=== PATIENT | male | born 1960 | race Caucasian/White ===

== ENCOUNTER 2024-04-11 18:21 | Emergency (ER) | payer MEDICARE, SELFPAY ==
--- NOTE | 2024-04-11 18:19 | ECG_ITS ---
APPROVED REPORT Exam: Resting ECG HR:70 bpm ECG Measurements Heart Rate 70 AXES NC 243 P 62 QRSd 96 QRS -18 QT 404 T 50 QTc 425 Conclusion SINUS RHYTHM WITH FIRST DEGREE AV BLOCK LOW QRS VOLTAGE IN PRECORDIAL LEADS [QRS DEFLECTION < 1.0 mV IN CHEST LEADS] ABNORMAL ECG UNCONFIRMED REPORT Electronically signed by : TESS CRANE, 04/13/2024 02:36:27
[2024-04-11 18:28] VITALS: BP 143/91; PULSE 77; RESP 17; TEMP 36.8; O2SAT 100; BMI 34.2
[2024-04-11 18:45] VITALS: PULSE 73; RESP 22; O2SAT 99
--- NOTE | 2024-04-11 18:45 | XR_ITS ---
PROCEDURE INFORMATION: Exam: XR Chest Exam date and time: 04/11/2024 6:50 PM Age: 63 years old Clinical indication: Shortness of breath; Additional info: Chest pain/ SOA TECHNIQUE: Imaging protocol: Radiologic exam of the chest. Views: 1 view. COMPARISON: No relevant prior studies available. FINDINGS: Lungs: Linear opacities noted in the right. This may suggest atelectasis no focal airspace consolidation. Overall lung house are hypoexpanded. This may reflect inadequate inspiration. Follow-up clinically. Pleural spaces: Unremarkable. No pleural effusion. No pneumothorax. Heart/Mediastinum: Unremarkable. No cardiomegaly. Bones/joints: Unremarkable. IMPRESSION: Right basilar atelectasis. Follow-up clinically
[2024-04-11] MEDS: ASPIRIN 81MG CHEWABLE TABLET 324 MG PO (18:54)
[2024-04-11 19:11] LABS: Basophils % 0.5 % (0.1-2.0); Eosinophils # 0.1 K/mm3 (0.0-0.4); Eosinophils % 1.5 % (0.1-12.0); Hematocrit 36.2 % (42.0-52.0); Hemoglobin 11.6 g/dL (14.1-18.0); Lymphocytes # 1.6 K/mm3 (0.7-4.5); Lymphocytes % 24.2 % (10-50); Mean Corpuscular Hemoglobin 28.6 pg (27.0-31.2); Mean Corpuscular Volume 89.2 fl (80-94); Mean Platelet Volume 9.6 fl (7.4-10.4); Monocytes # 0.5 K/mm3 (0.1-1.0); Monocytes % 7.9 % (1.7-9.3); Neutrophils # 4.3 K/mm3 (1.8-7.8); Neutrophils % 65.6 % (37.0-80.0); Platelet Count 330 K/mm3 (142-424); Red Blood Count 4.06 M/mm3 (4.60-6.20); Red Cell Distribution Width 16.4 % (11.5-17.5); White Blood Count 6.6 K/mm3 (4.8-10.8)
[2024-04-11 19:13] LABS: Chloride 103 mmol/L (98-107); Potassium 4.9 mmoL/L (3.5-5.1); Sodium 137 mmol/L (136-145)
--- NOTE | 2024-04-11 19:14 | HMH.EDCP ---
Discharge Plan Disposition Patient Disposition: Home, Self-Care Chief Complaint: Chest Pain Prescriptions Prescriptions: No Action atorvastatin 40 mg tablet 40 mg PO HS clopidogrel 75 mg tablet 75 mg PO DAILY amlodipine 5 mg tablet 5 mg PO DAILY aspirin [Aspir-81] 81 mg Tablet,Delayed Release (Dr/Ec) 81 mg PO DAILY sotalol 120 mg tablet 120 mg PO BID magnesium chloride 64 mg Tablet Extended Release 64 mg PO BID potassium citrate 10 mEq (1,080 mg) Tablet Extended Release 10 meq PO TID nitroglycerin 0.4 mg Tablet, Sublingual 0.4 mg SUBLINGUAL Q5M PRN (Reason: Chest Pain) Rx Instructions: do not exceed 3 doses per episode clove oil Oil 1 ea DENTAL DAILY Glucosamine Complex-MSM Capsule 1 cap PO DAILY tadalafil [Cialis] 20 mg Tablet 20 mg PO DAILY insulin glargine [Lantus Solostar U-100 Insulin] 100 unit/mL (3 mL) insulin pen 35 unit SQ HS vitamin Y65-maxlk acid 1,000-400 mcg Lozenge 1 myah SUBLINGUAL DAILY Ozempic 2 mg/dose (8 mg/3 mL) pen injector 2 mg SQ WEEKLY Referrals Follow up/Referrals: Provider,Referral, MD [Primary Care Provider] - See instructions Activity Restrictions/Add. Instructions Additional Instructions/Restrictions: Call your family doctor to establish care for this visit to the emergency department and schedule follow-up within 48 hours to ensure improvement. If you have any worsening of your condition or any other concerning signs or symptoms, return to the emergency department or your primary care doctor for further evaluation. If need to take more than 3 nitroglycerin, return immediately to the emergency department. Clinical Impressions Clinical Impression: Chest pain Print Language Print Language: Croatian Discharge ED Provider: Jung Stewart HPI General Chief Complaint: Chest Pain Stated Complaint: Chest Pain Time Seen by Provider: 04/11/24 18:23 Mode of Arrival: Ambulatory Source of Information: Patient Limitations: No Limitations Description of Symptoms (Recalled from ER Triage Doc. by RN): Pt. presents to the ED with complaints of chest pain that starts in his left chest and radiates into his left shoulder. He states it started 3 days ago but has gotten worse and he is having lightheadedness and some shortness of air. HE took 3 SL nitro at 1730. He rates the pain a 5/10. History of Present Illness HPI narrative: Please note that above description of symptoms, in this electronic medical record under categorization of recalled from ER triage doctor by RN are reflective of an initial nursing assessment, however, is not reflective of my full history and physical exam that was personally taken and clarified. Consequentially, this preceding description of symptoms, which may include the patient's categorized chief complaint in the EMR, do not reflect my personal clinical impression, and the ultimate description of history of present illness and patient stated complaints should be deferred to this section of the note. Unless stated otherwise or congruent with this section of the note, additional signs, symptoms, or incongruence should be interpreted as inaccurate with my clinical impression. Related Data Home Medications ?Medication ?Instructions ?Recorded ?Confirmed amlodipine 5 mg tablet 5 mg PO DAILY 04/11/24 04/11/24 aspirin 81 mg tablet,delayed 81 mg PO DAILY 04/11/24 04/11/24 release atorvastatin 40 mg tablet 40 mg PO HS 04/11/24 04/11/24 clopidogrel 75 mg tablet 75 mg PO DAILY 04/11/24 04/11/24 clove oil 1 ea dental DAILY 04/11/24 04/11/24 ecalwwgkrbo-lmi-tzbfnfodj-vitC 1 cap PO DAILY 04/11/24 04/11/24 capsule (Glucosamine Complex-MSM capsule) insulin glargine 100 unit/mL (3 35 unit SQ HS 04/11/24 04/11/24 mL) subcutaneous pen (Lantus Solostar U-100 Insulin) magnesium chloride 64 mg 64 mg PO BID 04/11/24 04/11/24 tablet,extended release nitroglycerin 0.4 mg sublingual 0.4 mg sublingual Q5M PRN Chest 04/11/24 04/11/24 tablet Pain potassium citrate 10 mEq (1,080 10 meq PO TID 04/11/24 04/11/24 mg) tablet,extended release semaglutide 2 mg/dose (8 mg/3 mL) 2 mg SQ WEEKLY 04/11/24 04/11/24 subcutaneous pen injector (Ozempic) sotalol 120 mg tablet 120 mg PO BID 04/11/24 04/11/24 tadalafil 20 mg tablet (Cialis) 20 mg PO DAILY 04/11/24 04/11/24 vitamin B12 1,000 mcg-folic acid 1 myah sublingual DAILY 04/11/24 04/11/24 400 mcg sublingual lozenge Allergies Allergy/AdvReac Type Severity Reaction Status Date / Time dial soap Allergy Rash Uncoded 04/11/24 18:36 [facility] Disclaimer: The information contained in this section may have been updated after the patient was seen, as this information can be updated by other users. Social History Smoking Status: Never smoker alcohol intake: never current occupational status: employed Travel in the last 8 weeks: None ROS Obtained: Yes All systems reviewed & no additional complaints except as documented Physical Exam General General appearance: alert Neck Neck exam: Present trachea midline Chest Chest inspection: Present normal inspection and symmetric chest wall rise Respiratory Respiratory exam: Present normal lung sounds bilaterally; Absent respiratory distress, wheezes, stridor, accessory muscle use or prolonged expiratory phase Cardiovascular Cardiovascular exam: Present regular rate, normal rhythm, normal heart sounds and other (Pulses equal and symmetric in upper and lower extremities) Extremities Exam Extremities exam: Absent edema Neurological Exam Neurological exam: Present alert, oriented X3 and CN II-XII intact Skin Skin exam: Present warm and dry; Absent cyanosis, diaphoresis or pallor HEART Score HEART Score HEART Score assessment performed?: Yes History (anamnesis): Moderately suspicious ECG: Normal Age: >65 years Risk factors: 3 or more risk factors Troponin: </= normal limit HEART Score: 5 Critical Care Critical Care Time Critical Care Time: No Medical Decision Making Medical Records Medical records reviewed: Yes I reviewed the patient's medical records. Jean Inquiry Pt receiving controlled substance: No Jean was queried for this patient: No Vital Signs Vital Signs: 04/11/24 18:28 04/11/24 18:45 Temperature 98.3 F Temperature Source Oral Pulse Rate 73 Pulse Rate [Right Brachial] 77 Respiratory Rate 17 22 Blood Pressure [Right Arm] 143/91 H Blood Pressure Mean [Right Arm] 108 Blood Pressure Source [Right Arm] Automatic Cuff Blood Pressure Position [Right Arm] Sitting 02 Sat by Pulse Oximetry 100 99 Oxygen Delivery Method Room Air Room Air Lab Data Labs: Lab Results 04/11/24 18:24: WBC 6.6, RBC 4.06 L, Hgb 11.6 L, Hct 36.2 L, MCV 89.2, MCH 28.6, MCHC 32.0, RDW 16.4, Plt Count 330, MPV 9.6, Neut % (Auto) 65.6, Lymph % (Auto) 24.2, [place] % (Auto) 7.9, Eos % (Auto) 1.5, Baso % (Auto) 0.5, Neut # (Auto) 4.3, Lymph # (Auto) 1.6, [place] # (Auto) 0.5, Eos # (Auto) 0.1, Baso # (Auto) 0.0, Sodium 137, Potassium 4.9, Chloride 103, Carbon Dioxide 27, Anion Gap 11.9, BUN 17, Creatinine 1.90 H, Estimated Creat Clear 61, Estimated GFR 36 L, Est GFR ( Amer) 43 L, Glucose 115 H, Calcium 9.2, Total Bilirubin 0.4, AST 51, ALT 19, Alkaline Phosphatase 98, Troponin I < 0.01, NT-Pro-B Natriuret Pep 129 H, Total Protein 6.7, Albumin 4.0, Globulin 2.7, Albumin/Globulin Ratio 1.5 04/11/24 21:55: Troponin I < 0.01 04/11/24 18:24 04/11/24 18:24 Response Orders (Tests/Meds): ED MEDICATIONS Generic Name Dose Route Start Last Admin Trade Name Freq PRN Reason Stop Dose Admin Nitroglycerin 0.4 mg 04/11/24 18:45 Nitroglycerin 0.4mg Sl Tablet SL 04/12/24 18:45 Q5MINP PRN Chest Pain Discontinued Medications Generic Name Dose Route Start Last Admin Trade Name Freq PRN Reason Stop Dose Admin Aspirin 324 mg 04/11/24 18:45 04/11/24 18:54 Aspirin 81mg Chewable Tablet PO 04/11/24 18:46 324 mg ONCE ONE Administration Lactated Ringer's 1,000 mls @ 999 mls/hr 04/11/24 19:19 04/11/24 19:38 Lactated Ringer's 1000 Ml Bag IV 04/11/24 20:19 999 mls/hr .Q1H1M ONE Administration ORDERS Category Date Time Status XR chest portable Stat Exams 04/11/24 18:45 Completed Complete Blood Count Auto Diff Stat Lab 04/11/24 18:24 Completed Comprehensive Metabolic Panel Stat Lab 04/11/24 18:24 Completed NT Pro Brain Natriuretic Pep. Stat Lab 04/11/24 18:24 Completed Troponin I Q3H Lab 04/11/24 21:55 Completed Troponin I Q3H Lab 04/12/24 00:45 Ordered Troponin I Stat Lab 04/11/24 18:24 Completed MDM Narrative Medical Decision Narrative: 63-year-old male history of hypertension, hyperlipidemia, CAD status post stenting on aspirin and Plavix, diabetes presenting with chest pain. Patient states that chest pain has been on and off for the last 4 days waxing and waning. Nothing in particular makes it better, nothing in particular makes it worse. Its mild in intensity. Left-sided, radiates into his left upper extremity. Some shortness of breath is exertional, no nausea, vomiting, diaphoresis, syncope, or any other concerns. Patient took aspirin and nitroglycerin x 1 prior to this, that did not seem to help, so he came in for further evaluation. History was obtained via conversation with patient and . On arrival, patient hemodynamically stable, alert, oriented x4, appropriate, GCS 15, moving all extremities spontaneously, pupils equal and reactive to light. Full physical exam performed and significant for very clinically well-appearing male speaking in full sentences and does not appear to be in any acute distress. Making jokes, jovial. Neurologically intact and ambulatory. Lungs are clear bilaterally, cardiac exam with no murmurs gallops or rubs. No lower extremity edema. Pulses equal and symmetric in upper and lower extremities. Differential includes microvascular coronary artery disease, CHF, ACS, MN, coronary artery dissection, pneumothorax, PE, dissection, pericarditis, myocarditis, pneumothorax, aortic aneurysm, pneumonia, bronchitis, among others. Patient was given aspirin and nitroglycerin for symptomatic management and correction of underlying abnormalities. Patient placed on continuous cardiac monitoring and continuous pulse ox with initial blood pressure 143/91, heart rate 73, saturation 100% on room air. Independent interpretation of EKG shows sinus rhythm first-degree AV block with RI 243, QRS 96, QTc 425. Normal axis. No acute ischemic change. Workup independently interpreted and significant for nonactionable CBC or chemistry, negative initial troponin. Patient's baseline kidney function is with creatinine around 1.7. On independent interpretation of imaging, no acute cardiopulmonary space disease. See radiology read for full review of final results. Score 5. Patient was placed in observation beginning at 8 PM in order to rule out evolving MN with delta troponin given high risk and determine need for admission versus home-going. The patient was provided serial exams, nitro, aspirin while awaiting results. Independent interpretation of results demonstrated negative delta troponin. On reevaluation, no pain. At this time, I feel patient is appropriate for discharge. Total observation time 3 hours. Because patient at baseline without signs or symptoms of clinical decompensation, deemed appropriate for discharge. Results were relayed to patient who voiced understanding and were agreeable to outpatient management and follow up. I discussed my clinical impression with patient and answered all questions. At this time, the evidence for any other entities in the differential is insufficient to warrant any further testing or ED observation. This was explained as well. Advisory was given that persistent or worsening symptoms require further evaluation. I confirmed the understanding of this discussion. [employer] disclaimer Much of this encounter note is an electronic rag cutting machine tender spoken language to printed text. Electronic rag cutting machine tender of the spoken language may permit errors. Although I have reviewed the note, some errors may still exist.
[2024-04-11 19:16] LABS: Alanine Aminotransferase 19 U/L (12-78); Albumin/Globulin Ratio 1.5 (1.1-1.8); Alkaline Phosphatase 98 U/L (38-126); Anion Gap 11.9 mEq/L (5-15); Aspartate Amino Transferase 51 U/L (17-59); Bilirubin,Total 0.4 mg/dl (0.2-1.3); Blood Urea Nitrogen 17 mg/dl (9-20); Carbon Dioxide 27 mmol/L (22.0-30.0); Creatinine Clearance Estimated 61 mL/min (50-200); Estimated Glomerular Filt Rate 36 ml/min (>60); GFR (African American) 43 ML/MIN (>60); Globulin 2.7 g/dL (1.3-3.2); Total Protein,Serum 6.7 g/dl (6.3-8.2)
[2024-04-11 19:17] LABS: Calcium 9.2 mg/dl (8.4-10.2); Glucose 115 mg/dl (74-100)
[2024-04-11 19:29] LABS: Troponin I < 0.01 ng/ml (0.00-0.034)
[2024-04-11] MEDS: LACTATED RINGERS 1000ML 1,000 ML 999 ML IV (19:38)
[2024-04-11 19:49] LABS: NT Pro Brain Natriuretic Pep. 129 pg/mL (0-125)
[2024-04-11 22:36] LABS: Troponin I < 0.01 ng/ml (0.00-0.034)
[2024-04-11 23:17] VITALS: BP 144/88; PULSE 84; RESP 18; TEMP 37.1; O2SAT 97
== END 2024-04-11 23:19 | disposition home or self-care (01) ==
PROVIDERS: Emergency Provider Emergency Medicine
DX: R07.9 Chest pain, unspecified (principal); M25.512 Pain in left shoulder; R42 Dizziness and giddiness; R06.02 Shortness of breath
CPT/HCPCS: 36415; 71045; 80053; 83880; 84484; 85025; 93005; 96360; 99284; J7120

== ENCOUNTER 2024-05-27 06:35 | Outpatient (CLI) | payer MEDICARE, SELFPAY ==
--- NOTE | 2024-05-27 | CA_ITS ---
APPROVED REPORT Exam: Pharmacologic Technologist: Danika Molina Ht: 5 ft 11 in Wt: 245 lbs BSA: 2.30 m2 HR: 81 bpm BP: 132/89 mmHg Stress Test Details Test: Lexiscan HR Resting HR: 81 bpm Max Heart Rate (APMHR): 155 bpm Max HR Achieved: 99 bpm Target HR (85% APMHR): 132 bpm % of APMHR: 64 Recovery HR: 94 bpm BP Resting BP: 132.0/89.0 mmHg Max BP: 132.0/66.0 mmHg Recovery BP: 129.0/82.0 mmHg ECG Resting ECG: Sinus rhythm, first degree AV block Stress ECG Conclusion Symptoms: Dyspnea, dizziness, lightheaded Arrhythmias/Ectopy: Frequent PVC ST-T Changes: Less than [address] depression. Conclusion: EKG unremarkable due to Lexiscan infusion. Electronically signed by : Mary Moreno MD 05/28/2024 00:15:58
--- NOTE | 2024-05-27 06:39 | NM_ITS ---
APPROVED REPORT Exam: Nuclear Stress Test Indication: fatigue..high bp..diabetes Patient Location: Outpatient Stress Tech: Danika Molina DE Tech:Blanca RodríguezCARLOS RT(R)(N) Ht: 5 ft 11 in Wt: 245 lbs HR: 83 bpm BP: 132/89 mmHg BSA: 2.30 m2 TID: 1.11 BMI: 34.1 History: fatigue..high bp..diabetes Procedure: Patient received 0.4 mg of intravenous Lexiscan, resting heart rate 83 bpm, resting blood pressure 132/89 mmHg, with Lexiscan maximum heart rate achieved was 100 bpm which is 85 % of the maximum predicted heart rate and blood pressure was 108/63 mmHg. With Lexiscan, patient denied any complaint of chest pain. Cardiac Stress and Resting SPECT Images: Cardiac Stress and Resting SPECT images were obtained using technetium 99m Myoview 32.9 mCi stress and 10.67 mCi at rest. Resting and stress imaging in supine and prone positions demonstrate a medium sized, moderate, predominantly fixed perfusion defect in the basal to mid inferior LV wall. There is mild reversibility noted towards the mid inferior LV wall. Gated imaging demonstrates mild reduction in global LV systolic function. There is moderate hypokinesis of the basal inferior LV wall. LVEF is calculated at 46%. Conclusion: Medium sized, moderate, predominantly fixed perfusion defect in the basal to mid inferior LV wall. There is mild reversibility noted towards the mid inferior LV wall. Findings are suggestive of partial reversible ischemia. Gated imaging demonstrates mild reduction in global LV systolic function. There is moderate hypokinesis of the basal inferior LV wall. LVEF is calculated at 46%. Electronically signed by : Mary Moreno MD 05/28/2024 00:11:57
[2024-05-27] MEDS: REGADENOSON 0.4MG/5ML SYRINGE 0.4 MG IV (09:26)
[2024-05-27] MEDS: ISOTOPE MYOVIEW (PER STUDY) 1 DOSE IV (09:26)
[2024-05-27] MEDS: SODIUM CHLORIDE 0.9% 10ML SYR (RAD ONLY) 10 ML IV ×2 (09:26)
== END 2024-05-27 23:59 | disposition home or self-care (01) ==
LOC: RAD 06:37
PROVIDERS: Visit Provider Internal Medicine
DX: I25.10 Atherosclerotic heart disease of native coronary artery without angina pectoris (principal); I10 Essential (primary) hypertension; R94.31 Abnormal electrocardiogram [ECG] [EKG]; R07.9 Chest pain, unspecified; Z95.5 Presence of coronary angioplasty implant and graft; N18.9 Chronic kidney disease, unspecified; E11.9 Type 2 diabetes mellitus without complications
CPT/HCPCS: 78452; 93017; 93018; 93306; A9502; J2785

== ENCOUNTER 2024-06-17 07:43 | Outpatient (CLI) | payer MEDICARE, SELFPAY ==
[2024-06-17 08:02] LABS: Basophils % 0.5 % (0.1-2.0); Eosinophils # 0.1 K/mm3 (0.0-0.4); Hemoglobin 14.1 g/dL (14.1-18.0); Lymphocytes # 1.7 K/mm3 (0.7-4.5); Lymphocytes % 26.7 % (10-50); Mean Corpuscular HGB Conc 32.8 g/dL (31.8-35.4); Mean Corpuscular Hemoglobin 29.9 pg (27.0-31.2); Mean Corpuscular Volume 91.1 fl (80-94); Mean Platelet Volume 9.4 fl (7.4-10.4); Monocytes # 0.6 K/mm3 (0.1-1.0); Monocytes % 9.4 % (1.7-9.3); Neutrophils # 3.9 K/mm3 (1.8-7.8); Neutrophils % 61.2 % (37.0-80.0); Platelet Count 354 K/mm3 (142-424); Red Blood Count 4.72 M/mm3 (4.60-6.20); Red Cell Distribution Width 15.2 % (11.5-17.5); White Blood Count 6.4 K/mm3 (4.8-10.8)
[2024-06-17 08:47] LABS: Anion Gap 10.4 mEq/L (5-15); Blood Urea Nitrogen 19 mg/dl (9-20); Calcium 9.6 mg/dl (8.4-10.2); Carbon Dioxide 27 mmol/L (22.0-30.0); Chloride 106 mmol/L (98-107); Estimated Glomerular Filt Rate 30 ml/min (>60); GFR (African American) 37 ML/MIN (>60); Glucose 78 mg/dl (74-100); Potassium 4.4 mmoL/L (3.5-5.1); Sodium 139 mmol/L (136-145)
[2024-06-17 11:43] LABS: Hemoglobin A1C 7.4 % (4.0-6.0)
== END 2024-06-17 23:59 | disposition home or self-care (01) ==
PROVIDERS: PCP Family Medicine; Visit Provider Internal Medicine
DX: I42.9 Cardiomyopathy, unspecified (principal); I25.10 Atherosclerotic heart disease of native coronary artery without angina pectoris; I10 Essential (primary) hypertension; E11.9 Type 2 diabetes mellitus without complications; I50.20 Unspecified systolic (congestive) heart failure
CPT/HCPCS: 36415; 80048; 83036; 85025

== ENCOUNTER 2024-08-18 09:12 | Outpatient (CLI) | payer MEDICARE, SELFPAY ==
--- NOTE | 2024-08-18 09:15 | XR_ITS ---
FINAL REPORT CLINICAL HISTORY: Left hand pain for 2-3 months, NKI, trigger finger COMPARISON: None FINDINGS: LEFT HAND Three views demonstrate no acute fracture or dislocation. There are mild hypertrophic changes at the DIP joints. The soft tissues are unremarkable. IMPRESSION: Degenerative changes without acute abnormality. Reviewed, Interpreted and Dictated by Mauricio Perez MD Transcribed by Mercedes Hernandez Authenticated and [facility]
== END 2024-08-18 23:59 | disposition home or self-care (01) ==
LOC: RAD 09:13
PROVIDERS: PCP Nurse Practitioner Family; Visit Provider Physician Assistant
DX: M19.042 Primary osteoarthritis, left hand
CPT/HCPCS: 73130

== ENCOUNTER 2024-09-05 08:25 | Outpatient (CLI) | payer MEDICARE, SELFPAY ==
--- NOTE | 2024-09-05 08:42 | ECG_ITS ---
APPROVED REPORT Exam: Resting ECG HR:83 bpm ECG Measurements Heart Rate 83 AXES IL 236 P 18 QRSd 96 QRS -40 QT 394 T 29 QTc 433 Conclusion SINUS RHYTHM WITH FIRST DEGREE AV BLOCK WITH FREQUENT VENTRICULAR PREMATURE COMPLEXES LOW QRS VOLTAGE IN PRECORDIAL LEADS [QRS DEFLECTION < 1.0 mV IN CHEST LEADS] ANTERIOR MYOCARDIAL INFARCTION , PROBABLY OLD [40+ ms Q WAVE AND/OR ST/T ABNORMALITY IN V3/V4] INFERIOR MYOCARDIAL INFARCTION , PROBABLY OLD [40+ ms Q WAVE AND/OR ST/T ABNORMALITY IN II/aVF] ABNORMAL ECG UNCONFIRMED REPORT Electronically signed by : Melo Carmona MD 09/09/2024 09:21:27
[2024-09-05 09:06] VITALS: BMI 33.5
[2024-09-05 09:26] LABS: Basophils % 0.5 % (0.1-2.0); Eosinophils # 0.1 Kmm3 (0.0-0.4); Eosinophils % 1.7 % (0.1-12.0); Hematocrit 42.9 % (42.0-52.0); Hemoglobin 14.4 g/dL (14.1-18.0); Immature Granulocytes # 0.02 10^3uL; Immature Granulocytes % 0.3 %; Lymphocytes # 1.5 K/mm3 (0.7-4.5); Lymphocytes % 25.6 % (10-50); Mean Corpuscular HGB Conc 33.6 g/dL (31.8-35.4); Mean Corpuscular Hemoglobin 31.2 pg (27.0-31.2); Mean Corpuscular Volume 92.9 fl (80-94); Mean Platelet Volume 9.7 fl (7.4-10.4); Monocytes # 0.4 K/mm3 (0.1-1.0); Monocytes % 7.3 % (1.7-9.3); Neutrophils # 3.8 K/mm3 (1.8-7.8); Neutrophils % 64.6 % (37.0-80.0); Nucleated Red Blood Cells # 0 10^3/uL; Nucleated Red Blood Cells % 0 %; Platelet Count 260 K/mm3 (142-424); Red Blood Count 4.62 M/mm3 (4.60-6.20); Red Cell Distribution Width 14.5 % (11.5-17.5); Red Cell Distribution Width-SD 49.5 fL; White Blood Count 5.9 K/mm3 (4.8-10.8)
[2024-09-05 09:34] LABS: Alanine Aminotransferase 17 U/L (12-78); Albumin Level 4.2 g/dl (3.5-5.0); Albumin/Globulin Ratio 1.4 (1.1-1.8); Alkaline Phosphatase 102 U/L (38-126); Anion Gap 13.5 mEq/L (5-15); Aspartate Amino Transferase 33 U/L (17-59); Bilirubin,Total 0.7 mg/dl (0.2-1.3); Blood Urea Nitrogen 24 mg/dl (9-20); Calcium 9.3 mg/dl (8.4-10.2); Carbon Dioxide 23 mmol/L (22.0-30.0); Chloride 107 mmol/L (98-107); Creatinine Clearance Estimated 59 mL/min (50-200); Estimated Glomerular Filt Rate 36 ml/min (>60); GFR (African American) 43 ML/MIN (>60); Glucose 106 mg/dl (74-100); Potassium 4.5 mmoL/L (3.5-5.1); Sodium 139 mmol/L (136-145); Total Protein,Serum 7.2 g/dl (6.3-8.2)
== END 2024-09-05 23:59 | disposition home or self-care (01) ==
LOC: PREOP 08:26
PROVIDERS: Nurse Anesthetist, Certified Registered; PCP Nurse Practitioner Family; Visit Provider Orthopaedic Surgery
DX: Z01.812 Encounter for preprocedural laboratory examination (principal); I44.0 Atrioventricular block, first degree; I49.3 Ventricular premature depolarization; I25.2 Old myocardial infarction; R94.31 Abnormal electrocardiogram [ECG] [EKG]
CPT/HCPCS: 80053; 85025; 93005

== ENCOUNTER 2024-09-12 07:21 | Day surgery (SDC) | payer MEDICARE, SELFPAY ==
[2024-09-05 09:08] VITALS: BMI 33.5
[2024-09-12] MEDS: LACTATED RINGERS 1000ML 1,000 ML 100 ML IV (07:45)
[2024-09-12 07:47] VITALS: BP 143/65; PULSE 40; RESP 18; TEMP 36.3; O2SAT 98
[2024-09-12 08:27] LABS: POC Glucose,Bedside 115 (70-110)
--- NOTE | 2024-09-12 08:45 | P.PNANES_ITS ---
[facility] Disclaimer: The information contained in this section may have been updated after the patient was seen, as this information can be updated by other users. Medical History H/O nephrolithotomy with removal of calculi Gamekeeper's thumb, right Left carpal tunnel syndrome CKD (chronic kidney disease) Coronary artery disease Typical angina Abnormal electrocardiogram [ECG] [EKG] History of kidney stones HTN (hypertension) Type 2 diabetes mellitus Surgical History H/O colonoscopy History of cataract extraction with lens replacement H/O umbilical hernia repair History of arthroscopy of both knees History of coronary artery stent placement Family History Other Family history of diabetes mellitus type II Social History Smoking Status: Never smoker alcohol intake: never substance use type: unknown current occupational status: employed Travel in the last 8 weeks?: None [facility] Anesthesia Checklist Patient Identification Patient Identification: Arm Band and Verbal (Name & ) Structural Data Admitted From: Home Planned Operative Procedure/s: trigger finger release Consent for Planned Operative Procedure(s) Verified: Yes Verified Documents: Surgical Consent and History and Physical NPO Status Verified Time NPO: 00:00 Additional verifications Anesthesia Reactions: No Hx Blood Transfusions: No Blood Transfusion Reaction: No Airway Assessment Mallampati Score:: Class II Dentition: Edentulous Neurological Assessment Level of Consciousness: Awake, Alert and Appropriate Hx Seizures: No Anesthesia Plan Anesthesia Risk discussed: Yes Anesthesia Plan: Verified ASA Class: III Anesthesia Type: General
[2024-09-12] MEDS: CEFAZOLIN SODIUM 2 GM in 0.9 % SODIUM CHLORIDE 100 ML IV (10:15)
[2024-09-12] MEDS: LIDOCAINE 1% W/EPI 1:100,000 20ML VIAL 20 ML (10:16)
--- NOTE | 2024-09-12 10:35 | EXP.OP.NOTE ---
Date of procedure: 09/12/24 Pre-op Diagnosis:: Left middle finger trigger finger Post-op Diagnosis:: Same Procedure performed:: Left middle finger A1 mariya release (trigger finger release) Surgeon:: Francesco Velasquez DO Parachute Marker(s):: Kwame CROCK[employer] FLOOR INSTALLER:: Sriram Mandujano Anesthesia: MAC and local Estimated blood loss (mL): 0 Operative findings:: See dictation Operative note:: Patient identified preoperatively. Left middle finger marked with yes my initials. Then transferred operative suite placed upon operating bed with a hand table. Patient given sedation left upper extremity prepped and draped normal sterile fashion. Once prepped and draped final operative timeout performed to identify proper patient procedure and extremity. Everyone involved the case agreed. There is no counter indication beginning. Did receive preoperative antibiotics. Marking pen was used to ari plan incision over the volar aspect of the hand over the A1 mariya of the middle finger. Esmarch was used to exsanguinate extremity pneumatic tourniquet inflated to 250 mmHg after local anesthesia was infiltrated into the incision site and around the A1 mariya. Skin knife is used to incise through skin dissection was taken out the scissors and retractors were placed over the A1 mariya which was directly visualized a Taney blade was used to make a slice in the A1 mariya. And then scissors were used to incise the A1 mariya for full release. The tendons were brought outside to confirm no adhesions no further triggering was elicited with deep flexion of the finger. Irrigation of the wound performed wound closed with Monocryl stitch with Steri-Strips hand dressing patient waken from sedation taken recovery in stable condition. Condition: stable Disposition: PACU Complications:: None apparent
[2024-09-12 10:43] VITALS: BP 133/98; PULSE 83; RESP 16; TEMP 36.1; O2SAT 98
[2024-09-12 10:58] VITALS: BP 131/91; PULSE 79; RESP 16; O2SAT 97
[2024-09-12 11:13] VITALS: BP 148/83; PULSE 82; RESP 16; O2SAT 97
== END 2024-09-12 11:15 | disposition home or self-care (01) ==
PROVIDERS: PCP Nurse Practitioner Family; Visit Provider Orthopaedic Surgery
PROC: (CPT 26055; principal; 2024-09-12 09:30)
DX: M65.332 Trigger finger, left middle finger (principal); I12.9 Hypertensive chronic kidney disease with stage 1 through stage 4 chronic kidney disease, or unspecified chronic kidney disease; E11.22 Type 2 diabetes mellitus with diabetic chronic kidney disease; N18.9 Chronic kidney disease, unspecified; I25.10 Atherosclerotic heart disease of native coronary artery without angina pectoris; Z79.4 Long term (current) use of insulin; Z79.899 Other long term (current) drug therapy; Z79.82 Long term (current) use of aspirin; Z79.02 Long term (current) use of antithrombotics/antiplatelets
CPT/HCPCS: 26055; 82962; 96374; J0690; J2003; J2004; J2250; J2704; J3010; J7120

== ENCOUNTER 2024-12-04 09:00 | Outpatient (RCR) | payer MEDICARE, SELFPAY | END 2024-12-04 23:59 | disposition home or self-care (01) | LOC: OT 09:00 | PROVIDERS: PCP Nurse Practitioner Family; Visit Provider Orthopaedic Surgery | DX: Z47.89 Encounter for other orthopedic aftercare (principal); Z98.890 Other specified postprocedural states | CPT/HCPCS: 97014; 97032; 97035; 97140; 97166; G0283 ==

== ENCOUNTER 2024-12-04 14:23 | Outpatient (CLI) | payer MEDICARE, SELFPAY ==
--- NOTE | 2024-12-04 14:24 | XR_ITS ---
FINAL REPORT CLINICAL HISTORY: Left hand pain FINDINGS: AP, oblique, and lateral views of the left hand were obtained. There is no prior exam for comparison. There is no acute fracture of the left hand. The joint spaces are preserved. The soft tissues are normal. IMPRESSION: No acute osseous abnormality of the left hand. Reviewed, Interpreted and Dictated by Natalie Moser MD Transcribed by Kayleigh Baldwin Authenticated and [facility]
--- OUTSIDE RECORDS SUMMARY | 2024-12-04 14:28 | XMS_ITS | Clinical Summary ---
Author Organization Healthcare Address [address] [place] [address] Care Team Providers Care Roller Leveler Name Role Phone Cristela Marmolejo APRN Primary Care Provider +1- [phone] Encounters Date Type Department Care Team Description 10/06/2024 Orders Only [facility] [address] [place] [address] Carmella Zuluaga Stage 3 chronic kidney disease, unspecified whether stage 3a or 3b CKD (CMS/HCC) (Primary Dx); Vitamin D insufficiency from Last 3 Months Social History Tobacco Use Types Packs/Day Years Used Date Smoking Tobacco: Never Assessed Sex and Gender Information Value Date Recorded Sex Assigned at Not on file Legal Sex Male 2:58 PM EDT Gender Identity Male 10/01/2024 3:05 PM EDT Sexual Orientation Not on file Plan of Treatment Upcoming Encounters Date Type Department Care Team ([facility] st Contact Info) Description 12/24/2024 1:00 PM EDT Office Visit [facility] Nephrology, Bone & Mineral Metabolism [address] [facility], [address] [place] [address] Deni Lyman MD [address] [place] [phone] Health Maintenance Due Date Last Done Comments [facility]-Depression Screening 1960 [facility]-Hepatitis C Screening 1960 [facility]-Medicare Annual Wellness (AWV) 1960 [facility]-/Child/Adol SDOH Screenings 1960 [facility]- SDOH Screenings 1976 [facility]-Adult SDOH Screenings 1976 [facility]-DTaP,Tdap,and Td Vaccine s (1 - Tdap) 1977 CT Colonography 08/25/2003 Colonoscopy 08/25/2003 FIT-DNA 08/25/2003 FIT 08/25/2003 FOBT 08/25/2003 Sigmoidoscopy 08/25/2003 [facility]-Colorectal Cancer Screening 08/25/2003 [facility]-Pneumococcal Vaccine: 50 + Years (1 of 1 - PCV) 2008 [facility]-Zoster Vaccines (1 of 2) 2008 FID-JDUMV-14 Vaccine (1 - 20 24-25 season) 2023 [facility]-Influenza Vaccine (#1) 2024 [facility]-RSV Vaccine: 60+ Years o r (1 - 1-dose 75+ series) 2033 HPV Vaccines Aged Out No longer eligi ble based on patient's age to complete this topic [facility]-HIB Vaccines Aged Out No longer e ligible based on patient's age to complete this topic [facility]-Hepatitis A Vaccines Aged Out No longer eligible based on patient's age to complete this topic [facility]-IPV Vaccines Aged Out No longer e ligible based on patient's age to complete this topic [facility]-Rotavirus Vaccines Aged Out No lo nger eligible based on patient's age to complete this topic Insurance MEDICARE [facility] Care Teams Roller Leveler Relationship Specialty Start Date End Date Cristela Marmolejo APRN [address] [place] [address] [id number] PCP - General 10/01/24
--- OUTSIDE RECORDS SUMMARY | 2024-12-04 14:29 | XMS_ITS | Encounter Summary ---
Author Organization Healthcare Address [address] [place] [address] Care Team Providers Care Flatware Maker Name Role Phone Cristela Marmolejo APRN Primary Care Provider +1- [phone] Encounter Details Date Type Department Care Team ([facility] Contact Info) Description 10/06/2024 Orders Only [facility] [address] [place] [address] Carmella Zuluaga Stage 3 chronic kidney disease, unspecified whether stage 3a or 3b CKD (CMS/HCC) (Primary Dx); Vitamin D insufficiency Social History Tobacco Use Types Packs/Day Years Used Date Smoking Tobacco: Never Assessed Sex and Gender Information Value Date Recorded Sex Assigned at Not on file Legal Sex Male 2:58 PM EDT Gender Identity Male 10/01/2024 3:05 PM EDT Sexual Orientation Not on file documented as of this encounter Plan of Treatment Upcoming Encounters Date Type Department Care Team (Late Contact Info) Description 12/24/2024 1:00 PM EDT Office Visit [facility] Nephrology, Bone & Mineral Metabolism [address] [facility], [address] [place] [address] Deni Lyman MD [address] [place] [phone] Scheduled Orders Name Type Priority Associated Diagnoses Orde r Schedule Renal Function Panel, Plasma Lab Routine Stage 3 chronic kidney disease, unspecified whether stage 3a or 3b CKD (CMS/HCC) Expected: 10/06/2024 (Approximate), Expires: 04/07/2026 CBC and Differential Lab Routine Stage 3 chronic kidney disease, unspecified whether stage 3a or 3b CKD (CMS/HCC) Expected: 10/06/2024 (Approximate), Expires: 04/07/2026 Creatinine, Random, Urine Lab Routine Stage 3 chronic kidney disease, unspecified whether stage 3a or 3b CKD ([facility]/HCC) Expected: 10/06/2024 (Approximate), Expires: 04/07/2026 Protein, Random, Urine with Creatinine Lab Routine Stage 3 chronic kidney disease, unspecified whether stage 3a or 3b CKD (CMS/HCC) Expected: 10/06/2024 (Approximate), Expires: 04/07/2026 Urinalysis with reflex microscopic (Culture NOT Included) Lab Routine Stage 3 chronic kidney disease, unspecified whether stage 3a or 3b CKD (CMS/HCC) Expected: 10/06/2024 (Approximate), Expires: 04/07/2026 PTH Intact Total Lab Routine Stage 3 chronic kidney disease, unspecified whether stage 3a or 3b CKD (CMS/HCC) Vitamin D insufficiency Expected: 10/06/2024 (Approximate), Expires: 04/07/2026 Vitamin D 25 Hydroxy Lab Routine Stage 3 chronic kidney disease, unspecified whether stage 3a or 3b CKD ([facility]/HCC) Vitamin D insufficiency Expected: 10/06/2024 (Approximate), Expires: 04/07/2026 documented as of this encounter Visit Diagnoses Diagnosis Stage 3 chronic kidney disease, unspecified whether stage 3a or 3b CKD ([facility]/HCC)- Primary Vitamin D insufficiency documented in this encounter Care Teams Flatware Maker Relationship Specialty Start Date End Date Cristela Marmolejo APRN [address] [place], [place] [phone] PCP - General 10/01/24 documented as of this encounter
== END 2024-12-04 23:59 | disposition home or self-care (01) ==
LOC: RAD 14:24
PROVIDERS: Visit Provider Orthopaedic Surgery
DX: M79.642 Pain in left hand (principal); M65.332 Trigger finger, left middle finger
CPT/HCPCS: 73130

== ENCOUNTER 2025-02-20 06:46 | Outpatient (CLI) | payer MEDICARE, SELFPAY ==
--- OUTSIDE RECORDS SUMMARY | 2023-10-04 06:00 | XMS_ITS ---
Author Organization [facility] are Address [address] [facility] [address] [place] [address] Care Team Providers Care Refractory Grinder Operator Name Role Phone NAVIN GONZALEZ Primary Care Provider Molina jose angel MEÑO JIN Unavailable [phone] REASON FOR VISIT AQUABLATION Encounters Encounter Location Date Provider Diagnosis [facility] [address] [place], [place] [id number] 10/04/2023 MEÑO JIN Plan Of Treatment No Information Progress Notes * BECKY WATTS PDOB:[birth year] (64 yo M)Acc No.[id number]:10/04/2023 Patient: Ayse BECKY ONEAL Provider: Louis Jin MD :1960 A ge:63 Y S ex:Male Date:10/04/2023 Address:[address] [place] [address] [address] [id number] Pcp:NAVIN GONZALEZ * Images: Billing Information: * Visit Code: * Procedure Codes: * Electronic signature of MEÑO JIN MD on 02/20/2025 at 06:50 AM EST Sign off status: Pending * Provider: Louis Jin MD Date: 0 10/04/2023 Generated for Jumai ng/Fanarayan/eTransmitting on: 04/22/2024 06:50 AM EST
--- OUTSIDE RECORDS SUMMARY | 2023-10-08 06:30 | XMS_ITS ---
Author Organization [facility] - [facility] are Address [address] [place] [address] Care Team Providers Care Administrative Support Clerk Name Role Phone NAVIN GONZALEZ Primary Care Provider Unavailabl e MEÑO JIN Unavailable [phone] EZEKIEL TRAMMELL Unavailable [phone] REASON FOR VISIT CATH REMOVAL POST OP- AQUABLATION Encounters Encounter Location Date Provider Diagnosis [facility] [address] [place] [address] 10/08/2023 EZEKIEL TRAMMELL Plan Of Treatment No Information Progress Notes * BECKY WATTS PDOB:[birth year] (64 yo M)Acc No.[id number]:10/08/2023 Progress Notes Patient: Ayse HOPKINS BECKY Millan Appointment Provider: Janette Trammell APRN :1960 A ge:63 Y S ex:Male Date:10/08/2023 Address:[address] [place] [address] [address] [facility] Pcp:NAVIN GONZALEZ Subjective: * Chief Complaints: * 1 . CATH REMOVAL POST OP- AQUABLATION. * Medical History: Objective: * Vitals: Assessment: Plan: * Treatment: * Images: Billing Information: * Visit Code: * Procedure Codes: * Electronic signature of GEENA TRAMMELL APRN on 02/20/2025 at 06:50 AM EST Sign off status: Pending * Appointment Provider: Janette Trammell APRN Date: 10/08/2023 Generated for Jumai opal/Fanarayan/eTransmitting on: 04/22/2024 06:50 AM EST
--- OUTSIDE RECORDS SUMMARY | 2023-11-15 09:30 | XMS_ITS ---
Author Organization [facility] - [facility] are Address [address] [facility] [address] [place] [address] Care Team Providers Care Stem Sizer Name Role Phone NAVIN GONZALEZ Primary Care Provider MEÑO Oswald Unavailable [phone] REASON FOR VISIT 1 MONTH SX F/U- AQUABLATION Encounters Encounter Location Date Provider Diagnosis [facility] [address] [place] [address] 11/15/2023 MEÑO JIN Plan Of Treatment No Information Progress Notes * BECKY WATTS PDOB:[birth year] (64 yo M)Acc No.[id number]:11/15/2023 Progress Notes Patient: Ayse ONEAL BECKY Millan Provider: Louis Jin MD :1960 A ge:63 Y S ex:Male Date:11/15/2023 Address:[address] [place] [address] [address] [id number] Pcp:NAVIN GONZALEZ Subjective: * Chief Complaints: * 1 . 1 MONTH SX F/U- AQUABLATION. * Medical History: Objective: * Vitals: Assessment: Plan: * Treatment: * Images: Billing Information: * Visit Code: * Procedure Codes: * Electronic signature of MEÑO JIN MD on 02/20/2025 at 06:53 AM EST Sign off status: Pending * Provider: Louis Jin MD Date: 0 11/15/2023 Generated for Rodrigo ng/Famalikag/eTransmitting on: 04/22/2024 06:53 AM EST
--- OUTSIDE RECORDS SUMMARY | 2023-12-13 03:00 | XMS_ITS ---
Author Organization [facility] are Address [address] [facility] [address] [place] [address] Care Team Providers Care Registered Travel Nurse Name Role Phone NAVIN GONZALEZ Primary Care Provider MEÑO Oswald Unavailable [phone] REASON FOR VISIT [facility] Encounters Encounter Location Date Provider Diagnosis [facility] [address] [place] [id number] 12/13/2023 MEÑO JIN Plan Of Treatment No Information Progress Notes * BECKY WATTS PDOB:[birth year] (64 yo M)Acc No.[id number]:12/13/2023 Patient: Ayse BECKY ONEAL Provider: Louis Jin MD :1960 A ge:63 Y S ex:Male Date:12/13/2023 Address:[address] [place] [address] [id number] Pcp:NAVIN GONZALEZ * Images: Billing Information: * Visit Code: * Procedure Codes: * Electronic signature of MEÑO JIN MD on 02/20/2025 at 06:53 AM EST Sign off status: Pending * Provider: Louis Jin MD Date: 0 12/13/2023 Generated for Jumai ng/Famalikag/eTransmitting on: 04/22/2024 06:53 AM EST
--- OUTSIDE RECORDS SUMMARY | 2024-01-15 09:00 | XMS_ITS ---
Author Organization [facility] - [facility] are Address [address] [facility] [address] [place] [address] Care Team Providers Care Oracle Erp Architect Name Role Phone NAVIN GONZALEZ Primary Care Provider Murphymarshall walter MEÑO JNI Unavailable [phone] REASON FOR VISIT 1 MONTH SX F/U- AQUABLATION Encounters Encounter Location Date Provider Diagnosis [facility] [address] [place] [address] 01/15/2024 MEÑO JIN Plan Of Treatment No Information Progress Notes * BECKY WATTS PDOB:[birth year] (64 yo M)Acc No.[id number]:01/15/2024 Progress Notes Patient: NEFTALI JARADERICK Monty Provider: Louis Jin MD :1960 A ge:63 Y S ex:Male Date:01/15/2024 Address:[address] [place] [address] [facility] [id number] Pcp:NAVIN GONZALEZ Subjective: * Chief Complaints: * 1 . 1 MONTH SX F/U- AQUABLATION. * HPI: O ffice Visit: BPH/LUTs: I PSS 5 moderate lower urinary tract symptoms/Quality of life 2. He complains of frequency every 1-2 hours, nocturia times 2. He also complains of poor erections, fatigue, mood irritability and decreased libido which have been longstanding. Lower urinary tract symptoms have been present for years, has not tried medical therapy 12/17/23: Patient is here for a catheter removal status post Aquablation on 12/13/23 08/09/23: Patient is here for a 2 month follow up. Patient is doing well of tamsalusion and finastride. Patient complains of urgency. Nocteria times 3. Patient is here to discuss botox treatment. 06/05/23: Patient here for follow up to disucss TRUS volume from 04/18/23 that measures 46.27ml. He is on Tamsulosin BID and Finasteride daily and Viagra as needed. He would like to disucss surgical intervention for enlarged prostate and complains of leakage 03/20/2023: Patient status post bilateral URS, left stent placement on 03/03/2023, here for stent and bacon removal BPH Meds: finasteride and tamsulosin Past urological surgery history:Patient is status post Right URS with LL on 06/23/21. Patient is status post 2 stage URS,LL here for stent removal. post bilateral URS, left stent placement on 03/03/2023 Cancer History/ Treatment: none Imaging:TRUS volume from 04/18/23 that measures 46.27ml Current PSA: 0.42 on 07/09/23 Testosterone level:478 on 07/09/23 Uroflow:08/03/23. * Medical History: Objective: * Vitals: Assessment: Plan: * Treatment: * Images: Billing Information: * Visit Code: * Procedure Codes: * Electronic signature of MEÑO JIN MD on 02/20/2025 at 06:50 AM EST Sign off status: Pending * Provider: Louis Jin MD Date: Generated for Rodrigo joseph/Valeria/Richarditting on: 04/22/2024 06:50 AM EST History and Physical Notes * HPI (History of Present Illness) Category Sub-Category Detail Notes Category Not es Office Visit BPH/LUTs: IPSS 5 moderate lower urinary tract symptoms/Quality of life 2. He complains of frequency every 1-2 hours, nocturia times 2. He also complains of poor erections, fatigue, mood irritability and decreased libido which have been longstanding. Lower urinary tract symptoms have been present for years, has not tried medical therapy 12/17/23: Patient is here for a catheter removal status post Aquablation on 12/13/23 08/09/23: Patient is here for a 2 month follow up. Patient is doing well of tamsalusion and finastride. Patient complains of urgency. Nocteria times 3. Patient is here to discuss botox treatment. 06/05/23: Patient here for follow up to disucss TRUS volume from 04/18/23 that measures 46.27ml. He is on Tamsulosin BID and Finasteride daily and Viagra as needed. He would like to disucss surgical intervention for enlarged prostate and complains of leakage 03/20/2023: Patient status post bilateral URS, left stent placement on 03/03/2023, here for stent and bacon removal BPH Meds: finasteride and tamsulosin Past urological surgery history:Patient is status post Right URS with LL on 06/23/21. Patient is status post 2 stage URS,LL here for stent removal. post bilateral URS, left stent placement on 03/03/2023 Cancer History/ Treatment: none Imaging:TRUS volume from 04/18/23 that measures 46.27ml Current PSA: 0.42 on 07/09/23 Testosterone level:478 on 07/09/23 Uroflow:08/03/23
--- OUTSIDE RECORDS SUMMARY | 2024-02-19 03:30 | XMS_ITS ---
Author Organization [facility] Boris calzada Billing Info Address [address] [place] [id number] Care Team Providers Care Purse Framer Name Role Phone NAVIN SAUNDERS Unavailable [phone] Allergies No Known Allergies REASON FOR VISIT Follow up Chronic condition Medications Medication SIG (Take, Route, Frequency, Duration) Notes Start Date End Date Status Sotalol HCl 120 MG 1 tablet Orally twic e a day Active Ranolazine ER 500 MG 1 tablet Orally Twi ce a day Active Potassium Citrate Ac tive Plavix 75 MG 1 tablet Orally Once a day Active Magnesium Chloride-Calcium 64-106 MG as directed Orally Active Multivitamin Adults 50+ - as directed Orally Active Nitroglycerin 0.4 MG as directed Subling ual as needed Active Insulin Glargine-yfgn 100 UNIT/ML INJECT 35 UNITS UNDER THE SKIN AT BEDTIME for 120 Active BD Pen Needle Ariella 2nd Gen 32G X 4 MM USE DIRECTED ONE TIME DAILY for 90 days Active Clopidogrel Bisulfate 75 MG 1 tablet Ora lly Once a day Active Ozempic (1 MG/DOSE) 4 MG/3ML INJECT 2MG UNDER THE SKIN EVERY WEEK Subcutaneous weekly for 30 days Active Aspir-Low 81 MG 1 tablet Orally Once a day Active Atorvastatin Calcium 40 MG 1 tablet Oral ly Once a day Active Amlodipine Besylate 5 MG TAKE ONE TABLET BY MOUTH ONE TIME DAILY for 90 Active Cialis 20 MG 1 tablet as needed O rally Once a day Active Albuterol Sulfate HFA 108 (90 Base) MCG/ACT INHALE ONE PUFF BY MOUTH EVERY 4 HOURS NEEDED for 33 Active Social History Tobacco Status: Question Answer Notes Patient is a non tobacco user Vital Signs Height 71 in 02/19/2024 Weight 262.8 lbs 02/19/2024 BMI 36.65 kg/m2 02/19/2024 Blood pressure systolic 131 mm Hg 02/19/20 24 Blood pressure diastolic 87 mm Hg 024 Temperature 97.7 degrees Fahrenheit 02/19/20 24 Heart Rate 85 /min 02/19/2024 Respiratory Rate 16 /min 02/19/2024 Oximetry 98 02/19/2024 Encounters Encounter Location Date Provider Diagnosis [id number] [address] [place] [address] 02/19/2024 NAVIN SAUNDERS Type 2 diabetes dell itus without complication, without long-term current use of insulin E11.9 ; Hypercholesterolemia E78.00 ; Benign essential hypertension I10 ; Morbid (severe) obesity due to excess calories E66.01 ; Acute cystitis without hematuria N30.00 ; BMI 36.0-36.9,adult Z68.36 and Iron deficiency E61.1 Assessments Encounter Date Diagnosis (ICD Code) Assessment Notes Treatment Notes Treatment Clinical Notes Section Notes 02/19/2024 Type 2 diabetes mellitus without complication, without long-term current use of insulin (ICD-10 - E11.9) Patient's previous diabetes not fully controlled. Preventative and diabetic labs ordered at today's visit. Patient should get them before leaving out of town. 02/19/2024 Hypercholesterolemia (ICD-10 - E78.00) Patient's cholesterol previously controlled on medication. Will order labs at today's visit. 02/19/2024 Benign essential hypertension (ICD-10 - I10) Patient's blood pressure controlled on prior medications. Will order labs at today's visit. 02/19/2024 Morbid (severe) obes ity due to excess calories (ICD-10 - E66.01) Advise a low carbohydrate diet and moderate intensity exercise of at least 30 minutes on five or more days of the week. Recommend avoiding junk foods such as fast food, chips, and fried foods. Avoid sugary drinks since they are a source of empty calories. 02/19/2024 Acute cystitis witho ut hematuria (ICD-10 - N30.00) Patient with cystitis given Cipro by manager of internal. UA negative in office at this time. Patient is still reporting some discomfort. 02/19/2024 BMI 36.0-36.9,adult (ICD-10 - Z68.36) 02/19/2024 Iron deficiency (ICD -10 - E61.1) Patient with continued fatigue. Patient has a previous history of iron deficiency will order iron TIBC and ferritin along with other labs to rule out causes. 02/19/2024 Other This report wa s dictated using [employer] software. There may be some inadvertently misspelled words or grammatical errors. Plan Of Treatment Medication Medication Name Sig Start Date Stop Date Notes Ozempic (1 MG/DOSE) 4 MG/3ML INJECT 2MG UNDER THE SKIN EVERY WEEK Subcutaneous weekly for 30 days Treatment Notes Assessment Notes Type 2 diabetes mellitus wit hout complication, without long-term current use of insulin Patient's previous diabetes not fully controlled. Preventative and diabetic labs ordered at today's visit. Patient should get them before leaving out of town. Hypercholesterolemia Patient's cholester ol previously controlled on medication. Will order labs at today's visit. Benign essential hypertension Patient's blood pressure controlled on prior medications. Will order labs at today's visit. Morbid (severe) obesity due to excess ca lories Advise a low carbohydrate diet and moderate intensity exercise of at least 30 minutes on five or more days of the week. Recommend avoiding junk foods such as fast food, chips, and fried foods. Avoid sugary drinks since they are a source of empty calories. Acute cystitis without hematuria Patient with cystitis given Cipro by manager of internal. UA negative in office at this time. Patient is still reporting some discomfort. Iron deficiency Patient with continu ed fatigue. Patient has a previous history of iron deficiency will order iron TIBC and ferritin along with other labs to rule out causes. Future Test Test Name Order Date IRON, TIBC AND FERRITIN PANEL ([id number]) 1 04/20/2023 Hemoglobin A1c ([id number]) 02/19/2024 CBC With Differential/Platelet ([id number] ) 02/19/2024 Lipid Panel ([id number]) 02/19/2024 CMP14 + eGFR ([id number]) 02/19/2024 Next Appt Details Follow Up: 3 Months, Reason: Chronic conditions Progress Notes * Quincy JOYCE PDOB:[birth year] (63 yo M)Acc No.[id number]:02/19/2024 PROGRESS NOTE Patient: Quincy JARA Provider: Benny SAUNDERS DO :1960 A ge:63 Y S ex:Male Date:02/19/2024 [facility]#:[id number] Address:[address] [place] [address] [id number] Patient's Default Facility:[address] [place] [address] PRIMARY CARE Subjective: * Chief Complaints: * F ollow up Chronic condition * HPI: F irst Point of Contact Screening: Do any of the following apply to you? N ew rash or open sores N o, F ever and/or chills in the past 7 days N o, C ough N o, M uscle or body aches (other than from an injury) N o, S ore throat N o, I n the past 3 weeks, have you or a close contact traveled outside the [facility] and you are now ill? N o. 63-year-old male presents today for follow-up on his chronic conditions. 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 Patient reports he is doing pretty well. Patient has closed and a house in [place] and will be moving soon. Patient will be by [facility] and living in both [place] and coming back here so will keep his primary care here and do telemetry visits when he is out of town. Patient reporting he is still getting very fatigued and short of breath. Patient reports this is happening since his past upper respiratory infection. Patient also reports while out of town he did have a UTI. Patient did see the manager of internal since then was given Cipro for the UTI but is still having pain urinating. Patient also with some constipation at this time. Patient also with concern of a pain that is across his feet especially at night. Patient concerns of a strap like her band pain that radiates across his feet at night. Patient does have a history of diabetes so possible neuropathy. Patient previously taking gabapentin and would like to know if that is something he can start back. Patient has no other concerns at this time. PHSF reviewed at this visit, updated in the chart, and is non-contributory to the presenting complaint, otherwise stated in the HPI. P atient History: Patient has no other concerns at this time. PHSF reviewed at this visit, updated in the chart, and is non-contributory to the presenting complaint, otherwise stated in the HPI. * ROS: G eneral ROS: Constitutional: D enies: fever, chills, fatigue, body aches, weight loss. R sebastian/Pulmonology: D enies:, acute cough, chest pain with breathing, shortness of breath. C ardiology: D enies, chest pain, palpitations, shortness of breath with exertion, decreased exercise tolerance. M usculoskeletal: D enies:, muscle pain, weakness. N eurology: D enies:, balance difficulty, headaches. * Medical History: * Surgical History: L ap Band 2009umbilical hernia repair arthroscopic surgery both knees 2004CTS left and right hand Arthoscopic Right Knee Surgery ataract Removal - Bilateral 06/2022Ureter Stents x 2 02/2023 * Hospitalization/Major Diagno stic Procedure: O ED-stung by quirino 12/22/16Heart concerns/ Chest pain 03/01/2018[place] [facility] [place] [facility] - [facility] 02/2023 * Family History: M other: , depression, diagnosed with Diabetes, HTN. F ather: , MS. S ister(s): alive, diagnosed with Diabetes, HTN. * Social History: A lcohol Use P atient d oes not use alcohol. T obacco Status P atient is a non tobacco user. E xercise: no routine exercisebad back and shoulder. Illicit Drug Use P atient/Family reports: N o illicit drug use. A mbulatory Status : i s independent. C affeine: none. Drugs: none. Diet: regular. * Medications: T akingAlbuterol Sulfate HFA 108 (90 Base) MCG/ACT Aerosol Solution INHALE ONE PUFF BY MOUTH EVERY 4 HOURS NEEDED Amlodipine Besylate 5 MG Tablet TAKE ONE TABLET BY MOUTH ONE TIME DAILY Aspir-Low 81 MG Tablet Delayed Release 1 tablet Orally Once a day Atorvastatin Calcium 40 MG Tablet 1 tablet Orally Once a day BD Pen Needle Ariella 2nd Gen 32G X 4 MM Miscellaneous USE DIRECTED ONE TIME DAILY Cialis 20 MG Tablet 1 tablet as needed Orally Once a day Clopidogrel Bisulfate 75 MG Tablet 1 tablet Orally Once a day Insulin Glargine-yfgn 100 UNIT/ML Solution Pen-injector INJECT 35 UNITS UNDER THE SKIN AT BEDTIME Magnesium Chloride-Calcium 64-106 MG Tablet Delayed Release as directed Orally Multivitamin Adults 50+ - Tablet as directed Orally Nitroglycerin 0.4 MG Tablet Sublingual as directed Sublingual as needed Ozempic (1 MG/DOSE) 4 MG/3ML Solution Pen-injector INJECT 1MG UNDER THE SKIN EVERY WEEK Plavix 75 MG Tablet 1 tablet Orally Once a day Potassium Citrate Ranolazine ER 500 MG Tablet Extended Release 12 Hour 1 tablet Orally Twice a day Sotalol HCl 120 MG Tablet 1 tablet Orally twice a day Taking Albuterol Sulfate HFA 108 (90 Base) MCG/ACT Aerosol Solution INHALE ONE PUFF BY MOUTH EVERY 4 HOURS NEEDED Taking Amlodipine Besylate 5 MG Tablet TAKE ONE TABLET BY MOUTH ONE TIME DAILY Taking Aspir-Low 81 MG Tablet Delayed Release 1 tablet Orally Once a day Taking Atorvastatin Calcium 40 MG Tablet 1 tablet Orally Once a day Taking BD Pen Needle Ariella 2nd Gen 32G X 4 MM Miscellaneous USE DIRECTED ONE TIME DAILY Taking Cialis 20 MG Tablet 1 tablet as needed Orally Once a day Taking Clopidogrel Bisulfate 75 MG Tablet 1 tablet Orally Once a day Taking Insulin Glargine-yfgn 100 UNIT/ML Solution Pen-injector INJECT 35 UNITS UNDER THE SKIN AT BEDTIME Taking Magnesium Chloride-Calcium 64-106 MG Tablet Delayed Release as directed Orally Taking Multivitamin Adults 50+ - Tablet as directed Orally Taking Nitroglycerin 0.4 MG Tablet Sublingual as directed Sublingual as needed Taking Ozempic (1 MG/DOSE) 4 MG/3ML Solution Pen-injector INJECT 1MG UNDER THE SKIN EVERY WEEK Taking Plavix 75 MG Tablet 1 tablet Orally Once a day Taking Potassium Citrate Taking Ranolazine ER 500 MG Tablet Extended Release 12 Hour 1 tablet Orally Twice a day Taking Sotalol HCl 120 MG Tablet 1 tablet Orally twice a day DiscontinuedAmoxicillin 875 MG Tablet 1 tablet Orally Twice a day Diclofenac Sodium 1 % Gel 1 gm Apply to affected area Transdermal BID PRN , Notes to Pharmacist: PRNFinasteride 5 MG Tablet 1 tablet Orally Once a day Pantoprazole Sodium 40 MG Tablet Delayed Release 1 tablet Orally Once a day Sildenafil Citrate 100 MG Tablet 1 tablet as needed Orally Once a day Tamsulosin HCl 0.4 MG Capsule 1 capsule Orally twice a day Medication List reviewed and reconciled with the patientDiscontinued Amoxicillin 875 MG Tablet 1 tablet Orally Twice a day Discontinued Diclofenac Sodium 1 % Gel 1 gm Apply to affected area Transdermal BID PRN , Notes to Pharmacist: PRNDiscontinued Finasteride 5 MG Tablet 1 tablet Orally Once a day Discontinued Pantoprazole Sodium 40 MG Tablet Delayed Release 1 tablet Orally Once a day Discontinued Sildenafil Citrate 100 MG Tablet 1 tablet as needed Orally Once a day Discontinued Tamsulosin HCl 0.4 MG Capsule 1 capsule Orally twice a day Medication List reviewed and reconciled with the patient * Allergies: N .K.A.no[Allergies Verified] Objective: * Vitals: H t: 71 in, Ht-cm: 180.34 cm, Wt: 262.8 lbs, Wt-k.2 kg, BMI:36.65, Weight Change: 4.8 lbs, Body Surface Area: 2.44, BP:131/87, Temp:97.7F, HR:85, Respiratory Rate:16, Oxygen sat %:98. * Examination: G eneral Examination: Constitutional: a lert and oriented, comfortable, pleasant.? Derm/Integumentary: no rash or skin lesions. HEENT: Head - NC/AT, EOMI. Respiratory: clear to auscultation bilaterally, no wheezes/rhonchi/rales, regular breathing rate and effort, good air exchange, no chest wall tenderness.? Heart: R SR/RRR, normal S1S2, no murmurs, PMI normal, .? Gastrointestinal: soft, NT/ND, BS present, no masses palpated, no hepatosplenomegaly. Musculoskeletal: n o edema, cyanosis, clubbing, pulses 2+ over 4. Psych: alert, oriented x 3, appropriate mood and affect.? Assessment: * Assessment: 1. T ype 2 diabetes mellitus without complication, without long-term current use of insulin - E11.9 (Primary) 2 . H ypercholesterolemia - E78.00 3 . B enign essential hypertension - I10 4 . M orbid (severe) obesity due to excess calories - E66.01 5 . A cute cystitis without hematuria - N30.00 6 .?BMI 36.0-36.9,adult - Z68.36 7 . I amandeep deficiency - E61.1 Plan: * Treatment: 2. H ypercholesterolemia Notes: Patient's cholesterol previously controlled on medication. Will order labs at today's visit.? 3. B enign essential hypertension L AB: Lipid Panel ([id number]) (Ordered for 02/19/2024) Notes: Patient's blood pressure controlled on prior medications. Will order labs at today's visit.? 4. M orbid (severe) obesity due to excess calories L AB: Lipid Panel ([id number]) (Ordered for 02/19/2024) Notes: Advise a low carbohydrate diet and moderate intensity exercise of at least 30 minutes on five or more days of the week. Recommend avoiding junk foods such as fast food, chips, and fried foods. Avoid sugary drinks since they are a source of empty calories. 5. A cute cystitis without hematuria L AB: URINALYSIS, DIP STICK/TABLET REAGENT; AUTOMATED, W/O MICROSCOPY ([id number]) IH (Ordered for 02/19/2024) (Collection Date & Time - 02/19/2024) Value Reference Range L eukocytes Trace * N itrite Neg * U robilinogen 0.2 * P rotein 100 * p H 6.0 * B lood Small * S pecific [place] 1.030 * K etone Trace * B ilirubin Small * G lucose Neg * C olor Yellow * A ppearance Clear * SHIVANI LEMUS 02/19/2024 10: 03:50 AM EST > Reviewed by Dr Saunders. ?LAB: Urine Culture, Routine ([id number]) (Ordered for 02/19/2024) (Collection Date & Time - 02/19/2024)* GISELLE JOHNSTON 02/26/2024 05:13 :38 PM EST >Patient notified of results via voicemail. Notes: Patient with cystitis given Cipro by manager of internal. UA negative in office at this time. Patient is still reporting some discomfort.??6.?Iron deficiency?LAB: IRON, TIBC AND FERRITIN PANEL ([id number]) (Ordered for 02/19/2024) Notes: Patient with continued fatigue. Patient has a previous history of iron deficiency will orderiron TIBC and ferritin along with other labs to rule out causes.??7.?Others? Clinical Notes: This report was dictated using [employer] software. There may be some inadvertently misspelled words or grammatical errors.?? * Procedure Codes: * Preventive Medicine: [place] PAF (Patient Assessment Form): D iabetes Diagnosis H gbA1C Performed:?Yes, D ate: 1 , R esult: N ote value from labs 9.1, L DL Performed: Y es, D ate: 1 , R esult: N ote value from labs 50. F all Risk Assessment D ate Screening Completed: 0 06/07/2023, I ncreased Fall Risk factors: N o fall risk factors, H istory Falls in Past Year: N o falls in the past year. C olorectal Cancer Screening (45-75 y/o) C olonoscopy Date (Every 10 years): 0 11/02/2020 Dr. Louis - report in documents. D epression Screening P HQ 2 Smart Form: N egative for Depression 08/02/2023. M ford P rostate Exam: Y es, P SA Level Checked: 0 12/10/2015. I mmunizations I nfluenza Vaccine: 0 12/22/2023 at [facility], per [place] [facility], P neumococcal Vaccine: P CV13, PPSV23, P CV13 - [id number] Date: 0 09/27/2014 per pt recall, P PSV23 - Pneumovax Date: [facility] [place] [facility], T etanus/Diphtheria/Pertussis (TDAP) Vaccine: G rosa one time TDAP vaccine, D ate of TDAP: 1 at [facility], per [place] [facility], H erpes Zoster Vaccine: H istory of chicken pox- vaccine indicated, V accination Status: A dministered vaccine, V accine Administered S hingrix (First Dose), Shingrix (Second Dose), D ate of Shingrix (First Dose) 1 04/20/2019 at [facility] [facility], D ate of Shingrix (Second Dose) 0 05/05/2020 at [facility], per [place] [facility]. Quality Measures: W eight Assessment A lora Normal BMI Follow-Up L petar education regarding diet. Mert espino [facility] - Cardio Dr. Sheppard - Ortho. * Follow Up: 3 Months (Reason: Chronic conditions) * Care Plan Details* * Sign off status: Completed true * Provider: Benny SAUNDERS DO Date: 04/20/2023 Generated for Rodrigo joseph/Valeria/Soumya on: 04/22/2024 06:49 AM EST History and Physical Notes * HPI (History of Present Illness) Category Sub-Category Detail Notes Category Not es Patient History Patient has no other concerns at this time. PHSF reviewed at this visit, updated in the chart, and is non-contributor y to the presenting complaint, otherwise stated in the HPI. First Point of Contact Screening Do any of the following apply to you? New rash or open sores: No 63-year-old male presents today for follow-up on his chronic conditions. 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 Patient reports he is doing pretty well. Patient has closed and a house in [place] and will be moving soon. Patient will be by [facility] and living in both [place] and coming back here so will keep his primary care here and do telemetry visits when he is out of town. Patient reporting he is still getting very fatigued and short of breath. Patient reports this is happening since his past upper respiratory infection. Patient also reports while out of town he did have a UTI. Patient did see the manager of internal since then was given Cipro for the UTI but is still having pain urinating. Patient also with some constipation at this time. Patient also with concern of a pain that is across his feet especially at night. Patient concerns of a strap like her band pain that radiates across his feet at night. Patient does have a history of diabetes so possible neuropathy. Patient previously taking gabapentin and would like to know if that is something he can start back. Patient has no other concerns at this time. PHSF reviewed at this visit, updated in the chart, and is non-contributory to the presenting complaint, otherwise stated in the HPI. Fever and/or chills in the past 7 days: No Cough: No Muscle or body aches (other than from an injury): No Sore throat: No In the past 3 weeks, have yo u or a close contact traveled outside the [place] and you are now ill? : No Examination Category Sub-Category Detail Notes Category Not es General Examination HEENT: Head - NC/AT, EOMI Heart: RSR/RRR, normal S1S2 , no murmurs,PMI normal, Respiratory: clear to auscultatio n bilaterally, no wheezes/rhonchi/rales, regular breathing rate and effort,good air exchange, no chest wall tenderness Gastrointestinal: soft, NT/ND, BS pres ent, no masses palpated, no hepatosplenomegaly Constitutional: alert and oriented, comfortable, pleasant Derm/Integumentary: no rash or skin lesi ons Musculoskeletal: no edema, cyanosis, clubbing, pulses 2+ over 4 Psych: alert , oriented x 3 , appropriate mood and affect
--- OUTSIDE RECORDS SUMMARY | 2024-03-19 08:58 | XMS_ITS ---
Author Organization [facility] Boris calzada Billing Info Address [address] [place] [address] Care Team Providers Care Dye Padder Operator Name Role Phone TARA GONZALEZFANY Unavailable [phone] REASON FOR VISIT Refill of Cialis Medications Medication SIG (Take, Route, Frequency, Duration) Notes Start Date End Date Status Cialis 20 MG 1 tablet as needed O rally Once a day for 90 days Active Encounters Encounter Location Date Provider [id number] [address] [place] [address] 03/19/2024 NAVIN GONZALEZ Primary erectile dysfunction N52.9 Assessments Encounter Date Diagnosis (ICD Code) Assessment Notes Treatment Notes Treatment Clinical Notes Section Notes 03/19/2024 Primary erectile dysfunction (ICD-10 - N52.9) Plan Of Treatment Medication Medication Name Sig Start Date Stop Date Notes Cialis 20 MG 1 tablet as needed O rally Once a day for 90 days Progress Notes * Quincy JOYCE PDOB:[birth year] (63 yo M)Acc No.[id number]:03/19/2024 Patient: Quincy JARA :1960 A ge:63 Y S ex:Male Address:[address] [place] [address], [id number] * Refills Refill Cialis Tablet, 20 MG, Orally, 90, 1 tablet as needed, Once a day, 90 days, Refills=1 Subjective: * Chief Complaints: * R efill of Cialis * Medical History: * Surgical History: * Hospitalization/Major Diagno stic Procedure: * Medications: Objective: * Vitals: * Physical Examination: Assessment: * Assessment: 1. P rimary erectile dysfunction - N52.9 (Primary) Plan: * Treatment: * Procedure Codes: * true * Date: Generated for Rodrigo joseph/Valeria/Williamsmitting on: 04/22/2024 06:48 AM EST
--- OUTSIDE RECORDS SUMMARY | 2024-04-14 11:52 | XMS_ITS ---
Author Organization [facility] Billing Info Address [address] [place] [address] [place] [address] Care Team Providers Care Geneticist Name Role Phone LISA NAVIN Unavailable [phone] REASON FOR VISIT Refills new pharmacy/[place] Ozempic Medications Medication SIG (Take, Route, Frequency, Duration) Notes Start Date End Date Status Amlodipine Besylate 5 MG TAKE ONE TABLET BY MOUTH ONE TIME DAILY for 90 days Activ e Insulin Glargine-yfgn 100 UNIT/ML INJECT 35 UNITS UNDER THE SKIN AT BEDTIME for 120 days Active BD Pen Needle Ariella 2nd Gen 32G X 4 MM USE DIRECTED ONE TIME DAILY. Dx E11.9 for 90 days Acti ve Ozempic (2 MG/DOSE) 8 MG/3ML Inject 2mg Subcutaneous once a week for 84 days 04/14/2024 Active Encounters Encounter Location Date Provider Diagnosis [id number] [address] [place] [address] 04/14/2024 NAVIN GONZALEZ Type 2 diabetes mellitus without complication, without long-term current use of insulin E11.9 Assessments Encounter Date Diagnosis (ICD Code) Assessment Notes Treatment Notes Treatment Clinical Notes Section Notes 04/14/2024 Type 2 diabetes mellitus without complication, without long-term current use of insulin (ICD-10 - E11.9) Plan Of Treatment Medication Medication Name Sig Start Date Stop Date Notes Amlodipine Besylate 5 MG TAKE ONE TABLET BY MOUTH ONE TIME DAILY for 90 days Insulin Glargine-yfgn 100 UNIT/ML INJECT 35 UNITS UNDER THE SKIN AT BEDTIME for 120 days BD Pen Needle Ariella 2nd Gen 32G X 4 MM USE DIRECTED ONE TIME DAILY. Dx E11.9 for 90 days Ozempic (2 MG/DOSE) 8 MG/3ML Inject 2mg Subcutaneous once a week for 84 days 04/14/2024 Progress Notes * Quincy JOYCE PDOB:[birth year] (63 yo M)Acc No.[id number]:04/14/2024 Patient: Quincy JARA :1960 A ge:63 Y S ex:Male Address:[address] [place] [address], [place], [address] * Refills Refill Ozempic (2 MG/DOSE) Solution Pen-injector, 8 MG/3ML, Subcutaneous, 9 Milliliter, Inject 2mg, once a week, 84 days, Refills=2 Refill Amlodipine Besylate Tablet, 5 MG, 90 Tablet, TAKE ONE TABLET BY MOUTH ONE TIME DAILY, 90 days, Refills=2 Refill BD Pen Needle Ariella 2nd Gen Miscellaneous, 32G X 4 MM, 90, USE DIRECTED ONE TIME DAILY. Dx E11.9, 90 days, Refills=3 Refill Insulin Glargine-yfgn Solution Pen-injector, 100 UNIT/ML, 45 Milliliter, INJECT 35 UNITS UNDER THE SKIN AT BEDTIME, 120 days, Refills=2 Subjective: * Chief Complaints: * R efills new pharmacy/[place] Ozempic * Medical History: * Surgical History: * Hospitalization/Major Diagno stic Procedure: * Medications: Objective: * Vitals: * Physical Examination: Assessment: * Assessment: 1. T ype 2 diabetes mellitus without complication, without long-term current use of insulin - E11.9 Plan: * Treatment: * Procedure Codes: * true * Date: Generated for Rodrigo joseph/Valeria/Soumya on: 04/22/2024 06:49 AM EST
--- OUTSIDE RECORDS SUMMARY | 2024-04-16 02:00 | XMS_ITS ---
Author Organization [facility] Address [address] [place], [place] [id number] Care Team Providers Care Consultant In Ergonomics And Safety Name Role Phone NAVIN GONZALEZ DO Primary Care Provider Unavaila REX Alicea Unavailable [phone] JOCELYNE FABIAN Unavailable [phone] REASON FOR VISIT [address] SHANKS Encounters Encounter Location Date Provider Diagnosis [facility] [place] [address] [place], [place] [id number] 04/16/2024 JOCELYNE FABIAN Plan Of Treatment No Information Progress Notes * BECKY WATTS PDOB:[birth year] (64 yo M)Acc No.[id number]:04/16/2024 Progress Notes Patient: NEFTALI JARADERICK Monty Provider: Fredy FABIAN APRN :1960 A ge:63 Y S ex:Male Date:04/16/2024 Address:[address] [place] [address] [address] [id number] Pcp:NAVIN GONZALEZ DO Subjective: * Chief Complaints: * [address] SHANKS Care Plan Details* * Electronic signature of SILVIA FABIAN APRN on 02/20/2025 at 06:54 AM EST Sign off status: Pending * Provider: Fredy FABIAN APRN Date: 0 04/16/2024 Generated for Rodrigo joseph/Valeria/eTransmitting on: 04/22/2024 06:54 AM EST
--- OUTSIDE RECORDS SUMMARY | 2024-05-13 04:00 | XMS_ITS ---
Author Organization [facility] Boris calzada Billing Info Address [address] [place] [address] Care Team Providers Care Horizontal Drill Operator Name Role Phone STORMY GONZALEZ Unavailable [phone] Allergies No Known Allergies REASON FOR VISIT follow-up diabetes, went to [place] 2 weeks ago and had a broke rib due to fall on ice Medications Medication SIG (Take, Route, Frequency, Duration) Notes Start Date End Date Status Ranolazine ER 500 MG 1 tablet Orally Twi ce a day Active Potassium Citrate Ac tive Sotalol HCl 120 MG 1 tablet Orally twic e a day Active Plavix 75 MG 1 tablet Orally Once a day Active Ozempic (2 MG/DOSE) 8 MG/3ML Inject 2mg Subcutaneous once a week for 84 days 04/14/2024 Active Ozempic (1 MG/DOSE) 4 MG/3ML INJECT 2MG UNDER THE SKIN EVERY WEEK Subcutaneous weekly for 30 days Active Nitroglycerin 0.4 MG as directed Subling ual as needed Active Insulin Glargine-yfgn 100 UNIT/ML INJECT 35 UNITS UNDER THE SKIN AT BEDTIME for 120 days Active Multivitamin Adults 50+ - as directed Orally Active Magnesium Chloride-Calcium 64-106 MG as directed Orally Active Aspir-Low 81 MG 1 tablet Orally Once a day Active Clopidogrel Bisulfate 75 MG 1 tablet Ora lly Once a day Active Cialis 20 MG 1 tablet as needed O rally Once a day for 90 days Active BD Pen Needle Ariella 2nd Gen 32G X 4 MM USE DIRECTED ONE TIME DAILY. Dx E11.9 for 90 days Active Atorvastatin Calcium 40 MG 1 tablet Oral ly Once a day Active Albuterol Sulfate HFA 108 (90 Base) MCG/ACT INHALE ONE PUFF BY MOUTH EVERY 4 HOURS NEEDED for 33 Active Amlodipine Besylate 5 MG TAKE ONE TABLET BY MOUTH ONE TIME DAILY for 90 days Active Social History Tobacco Status: Question Answer Notes Patient is a non tobacco user Encounters Encounter Location Date Provider [id number] [address] [place] [address] 05/13/2024 STORMY GONZALEZ Insomnia, unspecifie d type G47.00 ; Bradycardia R00.1 ; Erectile dysfunction, unspecified erectile dysfunction type N52.9 ; Hypercholesterolemia E78.00 ; Type 2 diabetes mellitus without complication, without long-term current use of insulin E11.9 and Essential hypertension I10 Assessments Encounter Date Diagnosis (ICD Code) Assessment Notes Treatment Notes Treatment Clinical Notes Section Notes 05/13/2024 Insomnia, unspecifie d type (ICD-10 - G47.00) 05/13/2024 Bradycardia (ICD-10 - R00.1) 05/13/2024 Erectile dysfunction , unspecified erectile dysfunction type (ICD-10 - N52.9) 05/13/2024 Hypercholesterolemia (ICD-10 - E78.00) 05/13/2024 Type 2 diabetes mellitus without complication, without long-term current use of insulin (ICD-10 - E11.9) 05/13/2024 Essential hypertensi on (ICD-10 - I10) 05/13/2024 Other This report wa s dictated using M*Modal software. There may be some inadvertently misspelled words or grammatical errors. Plan Of Treatment Future Test Test Name Order Date Hemoglobin A1c ([id number]) 05/13/2024 Next Appt Details Follow Up: 3 Months, Reason: Chronic conditions Progress Notes * Quincy JOYCE PDOB:[birth year] (64 yo M)Acc No.[id number]:05/13/2024 Progress Note Patient: Elkin JARAana m Millan Provider: Benny GONZALEZ DO :1960 A ge:63 Y S ex:Male Date:05/13/2024 Nate CASTAÑEDA#:[id number] Address:[address], [place], [place]-[id number] Check In:09:20 AM ESTCheck O ut:09:42 AM EST Subjective: * Chief Complaints: * 1 . Follow-up diabetes. 2. went to [place] 2 weeks ago and had a broke rib due to fall on ice. * HPI: P atient History: Patient History: This note was completed via: The service was performed using synchronous (real-time) interface communication (audio and video). The patient has verbally consented to a virtual visit. The physical location of the provider during the telehealth encounter is []. The physical location of the patient during the telehealth encounter is at home. Persons participating in visit: Attending Provider -Dr. Stormy scott VITAL SIGNS are self-reported: temperature 97.6, heart rate [71], BP RT arm 132/96[], BP LT arm [], respiratory rate [], height [5'11], and weight 245. Total amount of cumulative minutes for fvuz-oh-mjas encounter with patient: [minutes] Greater than 50% of total time spent counseling/coordinating care. HPI Patient History: fell and broke his ribs, doing better. iron doing better, hemoglobin 7.6 doing better cut out soda found manager continuous improvement, echo and stress test in the next two weeks Patient has no other concerns at this time. PHSF reviewed at this visit, updated in the chart, and is non-contributory to the presenting complaint, otherwise stated in the HPI. D epression Screening: PHQ-2 (2015 Edition) L ittle interest or pleasure in doing things? N ot at all, F eeling down, depressed, or hopeless? N ot at all, T otal Score 0 . * ROS: G eneral ROS: Constitutional: D enies: fever, chills, fatigue, body aches, weight loss. R sebastian/Pulmonology: D enies:, acute cough, chest pain with breathing, shortness of breath. C ardiology: D enies, chest pain, palpitations, shortness of breath with exertion, decreased exercise tolerance. M usculoskeletal: D enies:, muscle pain, weakness. N eurology: D enies:, balance difficulty, headaches. * Medical History: A rthritis, Asthma, GERD, Diabetes type 2, Hypertension, Quadriceps muscle strain, unspecified laterality, initial encounter, Morbid Obesity, Kidney Stones, CKD. * Surgical History: L ap Band 2008, umbilical hernia repair , arthroscopic surgery both knees 2003, CTS left and right hand , Arthoscopic Right Knee Surgery 06/2020, Cataract Removal - Bilateral 06/2022, Ureter Stents x 2 02/2023. * Hospitalization/Major Diagno stic Procedure: O ED-stung by bees 12/22/16, Heart concerns/ Chest pain 03/01/2018, [place] 06/2021, 1 Cardiac Stent - [place] 05/2022, Kidney Stones - [facility] 02/2023. * Family History: M other: , depression, diagnosed with Diabetes, HTN. F ather: , MS. Fredy ister(s): alive, diagnosed with Diabetes, HTN. * [...] Drugs: none. Diet: regular. * Medications: T aking Albuterol Sulfate HFA 108 (90 Base) MCG/ACT Aerosol Solution INHALE ONE PUFF BY MOUTH EVERY 4 HOURS NEEDED , Taking Amlodipine Besylate 5 MG Tablet TAKE ONE TABLET BY MOUTH ONE TIME DAILY , Taking Aspir-Low 81 MG Tablet Delayed Release 1 tablet Orally Once a day , Taking Atorvastatin Calcium 40 MG Tablet 1 tablet Orally Once a day , Taking BD Pen Needle Ariella 2nd Gen 32G X 4 MM Miscellaneous USE DIRECTED ONE TIME DAILY. Dx E11.9 , Taking Cialis 20 MG Tablet 1 tablet as needed Orally Once a day , Taking Clopidogrel Bisulfate 75 MG Tablet 1 tablet Orally Once a day , Taking Insulin Glargine-yfgn 100 UNIT/ML Solution Pen-injector INJECT 35 UNITS UNDER THE SKIN AT BEDTIME , Taking Magnesium Chloride-Calcium 64-106 MG Tablet Delayed Release as directed Orally , Taking Multivitamin Adults 50+ - Tablet as directed Orally , Taking Nitroglycerin 0.4 MG Tablet Sublingual as directed Sublingual as needed , Taking Ozempic (1 MG/DOSE) 4 MG/3ML Solution Pen-injector INJECT 2MG UNDER THE SKIN EVERY WEEK Subcutaneous weekly , Taking Ozempic (2 MG/DOSE) 8 MG/3ML Solution Pen-injector Inject 2mg Subcutaneous once a week , Taking Plavix 75 MG Tablet 1 tablet Orally Once a day , Taking Potassium Citrate , Taking Ranolazine ER 500 MG Tablet Extended Release 12 Hour 1 tablet Orally Twice a day , Taking Sotalol HCl 120 MG Tablet 1 tablet Orally twice a day , Medication List reviewed and reconciled with the patient * Allergies: N .K.A. Objective: * Vitals: * Examination: G eneral Examination: Constitutional: a lert, NAD,well developed and well nourished, cooperative with exam. HEENT: Head - NC/AT. No conjunctivitis,EOMI. Hearing is grossly normal. MMM.. Respiratory: regular breathing rate and effort, no labored breathing noted. Chest: n ormal shape and expansion. Musculoskeletal: F ull ROM of all extremities. Neurology: Alert and oriented x 3, follows commands without difficulty. Assessment: * Assessment: 1. I nsomnia, unspecified type - G47.00 (Primary) 2 . B radycardia - R00.1? 3. E rectile dysfunction, unspecified erectile dysfunction type - N52.9 ? 4 . H ypercholesterolemia - E78.00 5 . T ype 2 diabetes mellitus without complication, without long-term current use of insulin - E11.9 6 . E ssential hypertension - I10 Plan: * Treatment: 2. O thers Clinical Notes: This report was dictated using M*Modal software. There may be some inadvertently misspelled words or grammatical errors. * Preventive Medicine: [place] PAF (Patient Assessment Form): D iabetes Diagnosis H gbA1C Performed:?Yes, D ate: 1 , R esult: N ote value from labs 9.1, L DL Performed: Y es, D ate: 1 , R esult: N ote value from labs 50. F all Risk Assessment D ate Screening Completed: 0 05/13/2024, I ncreased Fall Risk factors: N o fall risk factors, H istory Falls in Past Year: O ne fall with injury in past year Slipped on ice and broke a rib. C olorectal Cancer Screening (45-75 y/o) C olonoscopy Date (Every 10 years): 0 11/02/2020 Dr. Louis - report in documents. D epression Screening P HQ 2 Smart Form: N egative for Depression 05/13/2024. M ford P rostate Exam: Y es, P SA Level Checked: 0 12/10/2015. I mmunizations I nfluenza Vaccine: 0 12/22/2023. Quality Measures: W eight Assessment A lora Normal BMI Follow-Up L ifestyle education regarding diet. D rBeti Idicula - Cardio Dr. Sheppard - Ortho. * Follow Up: 3 Months (Reason: Chronic conditions) * Care Plan Details* * This progress note has not b een verified nor is it considered complete until locked and signed by the provider. Sign off status: Pending * Provider: Benny GONZALEZ, DO Date: 0 05/13/2024 Generated for Rodrigo joseph/Valeria/eTransmitting on: 1 04/22/2024 06:54 AM EST History and Physical Notes * HPI (History of Present Illness) Category Sub-Category Detail Notes Category Not es Depression Screening PHQ-2 (2015 Edition) Little interest or pleasure in doing things?: Not at all Feeling down, depressed, or hopeless?: N ot at all Total Score: 0 Patient History Patient History: This note was completed via: The service was performed using synchronous (real-time) interface communication (audio and video). The patient has verbally consented to a virtual visit. The physical location of the provider during the telehealth encounter is []. The physical location of the patient during the telehealth encounter is at home. Persons participating in visit: Attending Provider -Dr. Stormy Cazares VITAL SIGNS are self-reported: temperature 97.6, heart rate [71], BP RT arm 132/96[], BP LT arm [], respiratory rate [], height [5'11], and weight 245. Total amount of cumulative minutes for cqkj-wm-treu encounter with patient: [minutes] Greater than 50% of total time spent counseling/coordinating care. HPI Patient History: fell and broke his ribs, doing better. iron doing better, hemoglobin 7.6 doing better cut out soda found manager continuous improvement, echo and stress test in the next two weeks Patient has no other concerns at this time. PHSF reviewed at this visit, updated in the chart, and is non-contributory to the presenting complaint, otherwise stated in the HPI. Examination Category Sub-Category Detail Notes Category Not es General Examination HEENT: Head - NC/AT . No conjunctivitis,EOMI. Hearing is grossly normal. MMM. Respiratory: regular breathing ra te and effort, no labored breathing noted Constitutional: alert,NAD,well devel oped and well nourished, cooperative with exam Neurology: Alert and oriented x 3, follows commands without difficulty Chest: normal shape and exp ansion Musculoskeletal: Full ROM of all extr emities
--- OUTSIDE RECORDS SUMMARY | 2024-06-30 09:25 | XMS_ITS ---
Author Organization [facility] Boris es Billing Info Address [address] [place] [address] Care Team Providers Care Field Staff Name Role Phone NAVIN GONZALEZ Unavailable [phone] REASON FOR VISIT Glucose meter not covered Medications Medication SIG (Take, Route, Frequency, Duration) Notes Start Date End Date Status Accu-Chek Multiclix Lancets Use to check blood glucose three times a day. Dx: E11.9 for 90 days 07/01/2024 Active Accu-Chek Georgina Plus - Use to check bloo d glucose In Vitro three times a day. Dx: E11.9 for 90 days 07/01/2024 Activ e Accu-Chek Georgina Plus w/Device Use as directed to check blood glucose in vitro three times a day. Dx: E11.9 for 30 days 07/01/2024 Active Encounters Encounter Location Date Provider Diagnosis [id number] [address] [place] [address] 06/30/2024 NAVIN GONZALEZ Plan Of Treatment Medication Medication Name Sig Start Date Stop Date Notes Accu-Chek Multiclix Lancets Use to check blood glucose three times a day. Dx: E11.9 for 90 days 07/01/2024 Accu-Chek Georgina Plus - Use to check bloo d glucose In Vitro three times a day. Dx: E11.9 for 90 days 07/01/2024 Accu-Chek Georgina Plus w/Device Use as dir ected to check blood glucose in vitro three times a day. Dx: E11.9 for 30 days 07/01/2024 Progress Notes * Quincy JOYCE PDOB:[birth year] (63 yo M)Acc No.[id number]:06/30/2024 Patient: Quincy JARA :1960 A ge:63 Y S ex:Male Address:[address] [place] [address], [place], [address] * Refills Start Accu-Chek Georgina Plus Kit, w/Device, in vitro, 1 Kit, Use as directed to check blood glucose, three times a day. Dx: E11.9, 30 days, Refills=0 Start Accu-Chek Georgina Plus Strip, -, In Vitro, 300 Strip, Use to check blood glucose, three times a day. Dx: E11.9, 90 days, Refills=3 Start Accu-Chek Multiclix Lancets, 300 Lancet, Use to check blood glucose three times a day. Dx: E11.9, 90 days, Refills=3 Subjective: * Chief Complaints: * G lucose meter not covered * Medical History: * Surgical History: * Hospitalization/Major Diagno stic Procedure: * Medications: Objective: * Vitals: * Physical Examination: Assessment: Plan: * Treatment: * Procedure Codes: * true * Date: Generated for Rodrigo joseph/Valeria/Richarditting on: 04/22/2024 06:54 AM EST
--- OUTSIDE RECORDS SUMMARY | 2024-07-02 09:47 | XMS_ITS ---
Author Organization [facility] Boris es Billing Info Address [address] [place] [address] Care Team Providers Care Intervention Teacher Name Role Phone NAVIN GONZALEZ Unavailable [phone] REASON FOR VISIT Meter Medications Medication SIG (Take, Route, Frequency, Duration) Notes Start Date End Date Status Accu-Chek Guide w/Device as directed for 30 days 0 07/03/2024 Active Encounters Encounter Location Date Provider [id number] [address] [place] [address] 07/02/2024 NAVIN GONZALEZ Type II or unspecifi ed type diabetes mellitus without mention of complication, not stated as uncontrolled E11.9 Assessments Encounter Date Diagnosis (ICD Code) Assessment Notes Treatment Notes Treatment Clinical Notes Section Notes 07/02/2024 Type II or unspecified type diabetes mellitus without mention of complication, not stated as uncontrolled (ICD-10 - E11.9) Plan Of Treatment Medication Medication Name Sig Start Date Stop Date Notes Accu-Chek Guide w/Device as directed for 30 days Progress Notes * Quincy JOYCE PDOB:[birth year] (63 yo M)Acc No.[id number]:07/02/2024 Patient: Quincy JARA :1960 A ge:63 Y S ex:Male Address:[address], [place], [address] * Refills Start Accu-Chek Guide Kit, w/Device, 1, as directed, 30 days, Refills=1 Subjective: * Chief Complaints: * M eter * Medical History: * Surgical History: * Hospitalization/Major Diagno stic Procedure: * Medications: Objective: * Vitals: * Physical Examination: Assessment: * Assessment: 1. T ype II or unspecified type diabetes mellitus without mention of complication, not stated as uncontrolled - E11.9 (Primary) Plan: * Treatment: * Procedure Codes: * true * Date: Generated for Rodrigo joseph/Valeria/eTransmitting on: 04/22/2024 06:53 AM EST
--- OUTSIDE RECORDS SUMMARY | 2024-08-11 08:59 | XMS_ITS ---
Author Organization [facility] Boris calzada Billing Info Address [address] [place] [address] Care Team Providers Care Hazardous Materials Waste Technician Name Role Phone NAVIN GONZALEZ Unavailable [phone] REASON FOR VISIT Need Dx and Directions for RX Medications Medication SIG (Take, Route, Fr equency, Duration) Notes Start Date End Date Status FreeStyle Lite Test - Use as directed to check blood glucose In Vitro three times a day. Dx: E11.9 for 90 days 06/23/2024 Active FreeStyle Lite w/Device Use as directed to check blood glucose three times a day. Dx: E11.9 for 30 days 06/23/2024 Activ e Encounters Encounter Location Date Provider Diagnosis [id number] [address] [place], [place] [id number] 08/11/2024 NAVIN GONZALEZ Plan Of Treatment Medication Medication Name Sig Start Date Stop Date Notes FreeStyle Lite Test - Use as directed to check blood glucose In Vitro three times a day. Dx: E11.9 for 90 days 06/23/2024 FreeStyle Lite w/Device Use as directed to check blood glucose three times a day. Dx: E11.9 for 30 days 06/23/2024 Progress Notes * Quincy JOYCE PDOB:[birth year] (63 yo M)Acc No.[id number]:08/11/2024 Patient: Quincy JARA :1960 A ge:63 Y S ex:Male [facility] [place], [address] * Refills Refill FreeStyle Lite Test Strip, -, In Vitro, 270, Use as directed to check blood glucose, three times a day. Dx: E11.9, 90 days, Refills=3 Refill FreeStyle Lite Kit, w/Device, 1 Kit, Use as directed to check blood glucose three times a day. Dx: E11.9, 30 days, Refills=0 Subjective: * Chief Complaints: * N eed Dx and Directions for RX * Medical History: * Surgical History: * Hospitalization/Major Diagno stic Procedure: * Medications: Objective: * Vitals: * Physical Examination: Assessment: Plan: * Treatment: * Procedure Codes: * true * Date: Generated for Rodrigo joseph/Valeria/Williamsmitting on: 04/22/2024 06:49 AM EST
--- OUTSIDE RECORDS SUMMARY | 2024-10-07 05:50 | XMS_ITS ---
Author Organization [facility] Billing Info Address [address] [place] [id number] Care Team Providers Care Crate Liner Name Role Phone NAVIN GONZALEZ [phone] REASON FOR VISIT TRANSFERRED Encounters Encounter Location Date Provider [id number] [address] [place] [address] 10/07/2024 NAVIN GONZALEZ Plan Of Treatment No Information Progress Notes * Quincy JOYCE PDOB:[birth year] (64 yo M)Acc No.[id number]:10/07/2024 Patient: Quincy JARA :1960 A ge:64 Y S ex:Male Address:[facility] [address], [facility] [address] * true * Date: Generated for Jumai opal/Valeria/eTransmitting on: 04/22/2024 06:53 AM EST
--- OUTSIDE RECORDS SUMMARY | 2024-12-24 12:00 | XMS_ITS | Encounter Summary ---
Author Organization Healthcare Address [address] [place] [address] Care Team Providers Care Armor Reconnaissance Vehicle Crewman Name Role Phone Cristela Marmolejo APRN Primary Care Provider [phone] Reason for Referral * Consultation (Routine) - Authorized Specialty Diagnoses / Procedures Referred By Tri camacho Referred To Contact Diagnoses Calcium nephrolithiasis Deni Lyman MD [address] [place] [id number] Phone: tel: fax: Referral ID Status Reason Start Date Expiration Date V isits Requested Visits Authorized [id number] Authorized 12/24/2024 06/25/2026 1 1 * Imaging (Routine) - Authorized Specialty Diagnoses / Procedures Referred By Tri camacho Referred To Contact Diagnoses Calcium nephrolithiasis Procedures CT Renal Stone wo IV Contrast Deni Lyman MD [address] [place] [phone] Phone: tel: fax: [facility] ([facility] [address] [place] [address] Phone: tel: fax: Referral ID Status Reason Start Date Expiration Date V isits Requested Visits Authorized [id number] Authorized 12/24/2024 06/25/2026 1 1 Reason for Visit * Reason Comments Consult Encounter Details Date Type Department Care Team (Latest Contact Info) Description 12/24/2024 1:00 PM EDT Office Visit [facility] Nephrology, Bone & Mineral Metabolism [address] [facility], [address] [place] [address] Deni Lyman MD [address] [place] [address] Calcium nephrolithiasis (Primary Dx); Stage 3b chronic kidney disease (CMS/HCC); Type 2 diabetes mellitus with chronic kidney disease, without long-term current use of insulin, unspecified CKD stage (CMS/HCC); Hypertensive chronic kidney disease with stage 1 through stage 4 chronic kidney disease, or unspecified chronic kidney disease; Chronic kidney disease-mineral and bone disorder (CKD-MBD) Social History Tobacco Use Types Packs/Day Years Used Date Smoking Tobacco: Never Smokeless Tobacco: Never Tobacco Cessation:Counseling Given: No Alcohol Use Standard Drinks/Week Comments Not Currently 0 (1 standard drink = 0.6 oz pur e alcohol) PHQ-2 Answer Date Recorded Patient Health Questionnaire-2 Score 0 12/24/2024 PHQ-9 Answer Date Recorded Patient Health Questionnaire-9 Score 0 12/24/2024 Sex and Gender Information Value Date Recorded Sex Assigned at Not on file Legal Sex Male 2:58 PM EDT Gender Identity Male 10/01/2024 3:05 PM EDT Sexual Orientation Not on file documented as of this encounter Last Filed Vital Signs Vital Sign Reading Time Taken Comments Blood Pressure 115/74 12/24/2024 1:16 PM EDT Pulse 70 12/24/2024 1:16 PM EDT Temperature 36.9 C (98.5 F) 12/24/2024 1:16 PM EDT Respiratory Rate - - Oxygen Saturation 97% 12/24/2024 1:16 PM EDT Inhaled Oxygen Concentration - - Weight 114 kg (251 lb 8.7 oz) 12/24/2024 1:16 PM EDT Height 180.3 cm (5' 11 ) 12/24/2024 1:16 PM EDT Body Mass Index 35.08 12/24/2024 1:16 PM EDT documented in this encounter Functional Status * Over the past 2 weeks, how often have you been bothered by any of the following problems? Question Answer Date of Assessment Author Little interest or pleasure in doing things Not at all 12/24/2024 1:16 PM EDT Apolonia Eller Feeling down, depressed, or hopeless Not at all 12/24/2024 1:16 PM EDT Apolonia Eller Patient Health Questionnaire -2 Score 0 12/24/2024 1:16 PM EDT Apolonia Eller * Question Answer Date of Assessment Author Trouble falling or staying asleep, or sleeping too much Not at all 12/24/2024 1:16 PM EDT Apolonia Eller Feeling tired or having morelia le energy Not at all 12/24/2024 1:16 PM EDT Apolonia Eller Poor appetite or overeating Not at all 12/24/2024 1: 16 PM EDT Apolonia Eller Feeling bad about yourself - or that you are a failure or have let yourself or your family down Not at all 12/24/2024 1:16 PM EDT Apolonia Eller Trouble concentrating on things, such as reading the newspaper or watching television Not at all 12/24/2024 1:16 PM RADHAT Apolonia Eller Moving or speaking so slowly that other people could have noticed? Or the opposite - being so fidgety or restless that you have been moving around a lot more than usual. Not at all 12/24/2024 1:16 PM EDT Apolonia Carrillo Thoughts that you would be better off or hurting yourself in some way Not at all 12/24/2024 1:16 PM EDT Donna Eller Patient Health Questionnaire -9 Score 0 12/24/2024 1:16 PM EDT Apolonia Eller * How difficult have these problems made it for you to do your work, take care of things at home, or get along with other people? Answer Date of Assessment Author Not difficult at all 12/24/2024 1:16 PM EDT Apolonia Estrella documented as of this encounter Miscellaneous Notes * Progress Notes - Deni Lyman MD - 12/24/2024 1:00 PM EDT Nephrology Outpatient Clinic New Consult Note Chronic kidney disease Metabolic Stone Disease Patient: Quincy Joyce Primary Care Provider: Cristela Marmolejo APRN Referring Provider: Cristela Marmolejo APRN Reason for consult: Chronic Kidney Disease HPI/Subjective Quincy Joyce is a 64 y.o. 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 Has had numerous kidney stones as an adult, last episode in 2022 around thanksgiving. Believes all stones were calcium oxalate. He has had a few interventions including stents and aqua-ablation. No symptoms today. He is on K-citrate 10 mEq BID. He has had diabetes for many years. He is unsure if any family members had kidney problems, but denies knowledgeof any family members on dialysis or issues with stones. He has no edema. He has had 2 cardiac stents and is on ASA and PLAVIX follows with Dr. Hernandez at [facility] in [place], [place]. CKD Risk Factors: Medical comorbidities: +DM2, + HTN, + CAD, + kidney stones Medications: Anatomy: Last imaging in 2022 Family history: not aware of Ckd, nobody on dialysis Social history: Never smoker ROS Review of Systems Constitutional: Negative. HENT: Negative. Eyes: Negative. Respiratory: Negative. Cardiovascular: Negative. Gastrointestinal: Negative. Endocrine: Negative. Genitourinary: Negative. Musculoskeletal: Negative. Skin: Negative. Allergic/Immunologic: Negative. Neurological: Negative. Hematological: Negative. Psychiatric/Behavioral: Negative. History: Past Medical History[1] Problem List[2] Surgical History[3] Family History[4] Social History Socioeconomic History Marital status: Unknown Spouse name: Not on file Number of children: Not on file Years of education: Not on file Highest education level: Not on file Occupational History Not on file Tobacco Use Smoking status: Not on file Smokeless tobacco: Not on file Substance and Sexual Activity Alcohol use: Not on file Drug use: Not on file Sexual activity: Not on file Other Topics Concern Not on file Social History Narrative Not on file Social Drivers of Health Financial Resource Strain: Not on file Food Insecurity: Not on file Transportation Needs: Not on file Physical Activity: Not on file Stress: Not on file Social Connections: Not on file Intimate Partner Violence: Not on file Housing Stability: Not on file Allergies[5] Medications: Current Medications: No current outpatient medications Objective There were no vitals taken for this visit. Temp: [36.9 ??C (98.5 ??F)] 36.9 ??C (98.5 ??F) Heart Rate: [70] 70 BP: (115)/(74) 115/74 Physical Exam: Physical Exam Constitutional: General: He is not in acute distress. Appearance: Normal appearance. He is obese. He is not ill-appearing. HENT: Head: Normocephalic. Right Ear: External ear normal. Left Ear: External ear normal. Nose: Nose normal. Mouth/Throat: Mouth: Mucous membranes are moist. Pharynx: Oropharynx is clear. Eyes: Conjunctiva/sclera: Conjunctivae normal. Pupils: Pupils are equal, round, and reactive to light. Cardiovascular: Rate and Rhythm: Normal rate. Pulses: Normal pulses. Pulmonary: Effort: Pulmonary effort is normal. Abdominal: General: Abdomen is flat. Bowel sounds are normal. Musculoskeletal: General: Normal range of motion. Cervical back: Normal range of motion. Right lower leg: No edema. Left lower leg: No edema. Skin: General: Skin is warm and dry. Capillary Refill: Capillary refill takes less than 2 seconds. Neurological: General: No focal deficit present. Mental Status: He is alert and oriented to person, place, and time. Mental status is at baseline. Psychiatric: Mood and Affect: Mood normal. Behavior: Behavior normal. Thought Content: Thought content normal. Judgment: Judgment normal. Laboratory: I have personally reviewed these lab results and discuss their significance below. LAB RESULTS 12/02/24 PTH 58 Vit D 37.9 Urine creatinine 142, urine protein 11.6, upcr 0.08 RFP: Glu 128, BUN 19, Cr 1.8, eGFR, Sodium 138, K 4.2, Cl 102, CO2 19, Ca 9.4, Phos 3.8, Alb 4.3 UA: >1.030 SG, ph 5.5, Glu 3+, CBC: WBC 6.1, Hgb 15.6, PLT 254 TSH: 2.8, T4 1.29 Imaging: No recent imaging for review Impression & Plan: #CKD Stage 3a/b Etiology: Diabetic kidney disease seems most likely etiology Baseline serum creatinine: unkn mos recent 1.8 eGFR 41 Most recent Scr: 1.8 eGFR 41 on 12/02/24 Electrolytes, acid/base, volume status wnl Urine: no blood or protein Anatomy: normal Risk factor reduction to slow progression of kidney disease: -BP Control goal BP <130/80 -DM control goal A1c <7.0% -Lifestyle management: ---Maintain healthy weight: ---Diet recommendations: Heart healthy and Low sodium <2g/day ---Daily exercise 20-30 minutes as tolerated -Avoid NSAIDs -Not on miguelito inhibitor or arb but blood pressure well controlled no protein in the urine so no need to push from kidney perspective -SGLT2 inhibitor: Jardiance 10 mg #Nephrolithiasis, calcium oxalate Significant burden in the past, no stones in past 2 years No imaging for review since he moved care from [place] to [place] No recent Litholink for review Diet: drink water >2.5 L, avoid soft drinks, low oxalate Medications: K-citrate 10 mEq BID #HTN #CKD bone and mineral metabolism - vitamin d and PTH appropriate #CAD #Diabetes with CKD Recommendations and plan: -I reviewed Mr. Joyce past medical chart and referral document. He has longstanding diabetes and metabolic stone disease with a coupe severe episodes. He has a baseline cr around 1.8 and eGFR in thelow 40s placing him in CKD stage 3 b. Treatment will focus on minimizing risk factor for progression I.e. good BP, DM2 control and stone prevention. -Continue K-Citrate 10 mEq BID for calcium oxalate stone prevention -Continue Jardiance for DM2 -BP is at goal continue current antihypertensives RTC in 6 months in [place], [place] with labs before visit and repeat kidney imaging given complex stone disease history; I am ordering a non contrast CT rather than ultrasound which would be too limited an evaluation. Deni Lyman MD Division of Nephrology [facility] Medical student Gabo Bridges present for encounter as part of longitudinal learning experience ICM course. Counseling Documentation: The patient was counseled regarding COUNSELING TOPICS: diagnostic results, prognosis, risks and benefit of treatment options, risk factor reductions, instructions for management, patient and family education, medication changes, diagnostic impressions, Heart healthy diet, regular physical activity and weight control, Avoidance of NSAIDs and other nephrotoxins, and terminal operations supervisor nature of condition. Education provided was verbal counseling.Additional time was spent in care coordination including medical record review. ENCOUNTER TIMING: I personally spent a total of 45 minutes on this encounter. This time includes face to face with patient, counseling and discussion, lab/result interpretation, coordination of follow-up care, document review. The total time of encounter was 45 minutes and greater than 50% of the visit was spent in c ounseling/coordination of care. . MDM: - was based on the following: Labs reviewed Urine studies: UA and Metabolic profile: renal panel or CBC Past imaging reviewed Old chart reviewed ORDERS PLACED THIS ENCOUNTER Orders Placed This Encounter Procedures CT Renal Stone wo IV Contrast Standing Status: Future Expected Date: 06/23/2025 Expiration Date: 06/27/2026 Specific protocol needed?: Radiology to determine Is this exam for research?: No What is the patient's sedation requirement?: No Sedation Results Release Delay - 72 Hours: 72 Hours Albumin-creatinine ratio, urine, random Standing Status: Future Expected Date: 06/22/2025 Expiration Date: 06/27/2026 Release to patient in [facility]: Immediate Renal Function Panel, Plasma Standing Status: Future Expected Date: 06/22/2025 Expiration Date: 06/27/2026 [facility]: Immediate CBC W/O Differential Standing Status: Future Expected Date: 06/22/2025 Expiration Date: 06/27/2026 [facility]: Immediate Protein, Random, Urine with Creatinine Standing Status: Future Expected Date: 06/22/2025 Expiration Date: 06/27/2026 [facility]: Immediate Urinalysis with reflex microscopic (Culture NOT Included) Standing Status: Future Expected Date: 06/22/2025 Expiration Date: 06/27/2026 Release to patient in [facility]: Immediate [facility]ink urine kidney stone panel Standing Status: Future Expected Date: 06/23/2025 Expiration Date: 06/27/2026 24 Hour Collection Type?: One 24 hour urine collection Include Kazakh instructions?: Yes Follow Up Nephrology [place] [facility] Standing Status: Future Expected Date: 06/23/2025 Expiration Date: 01/23/2026 Referral Priority: Routine Referral Type: Consultation Number of Visits Requested: 1 Problem List Items Addressed This Visit None Visit Diagnoses Calcium nephrolithiasis - Primary Relevant Medications potassium citrate CR (Urocit-K-10) 10 mEq ER tablet Other Relevant Orders CT Renal Stone wo IV Contrast Albumin-creatinine ratio, urine, random Renal Function Panel, Plasma CBC W/O Differential Protein, Random, Urine with Creatinine Urinalysis with reflex microscopic (Culture NOT Included) Follow Up Nephrology [facility] urine kidney stone panel I confirm that I have addressed the patient's longitudinal multifaceted and complex health related active and chronic conditions that will require ongoing care with myself or someone on my team. [1] No past medical history on file. [2] There is no problem list on file for this patient. [3] No past surgical history on file. [4] No family history on file. [5] Not on File documented in this encounter Plan of Treatment Upcoming Encounters Date Type Department Care Team (Late st Contact Info) Description 07/10/2025 12:40 PM EDT Office Visit [facility] [address] [place] [address] Deni Lyman MD [address] [place] [address] Scheduled Orders Name Type Priority Associated Diagnoses Orde r Schedule CT Renal Stone wo IV Contrast Imaging Routine Calcium nephrolithiasis Expected: 06/23/2025 (Approximate), Expires: 06/27/2026 Albumin-creatinine ratio, urine, random Lab Routine Calcium nephrolithiasis Expected: 06/22/2025 (Approximate), Expires: 06/27/2026 Renal Function Panel, Plasma Lab Routine Calcium nephrolithiasis Expected: 06/22/2025 (Approximate), Expires: 06/27/2026 CBC W/O Differential Lab Routine Calcium nephrolithiasis Expected: 06/22/2025 (Approximate), Expires: 06/27/2026 Protein, Random, Urine with Creatinine Lab Routine Calcium nephrolithiasis Expected: 06/22/2025 (Approximate), Expires: 06/27/2026 Urinalysis with reflex microscopic (Culture NOT Included) Lab Routine Calcium nephrolithiasis Expected: 06/22/2025 (Approximate), Expires: 06/27/2026 [facility]ink urine kidney stone panel Lab Routine Calcium nephrolithiasis Expected: 06/23/2025 (Approximate), Expires: 06/27/2026 Scheduled Referrals Name Type Priority Associated Diagnoses Orde r Schedule Follow Up Nephrology Outpatient Referral Routine Calcium nephrolithiasis Expected: 06/23/2025 (Approximate), Expires: 01/23/2026 documented as of this encounter Visit Diagnoses Diagnosis Calcium nephrolithiasis- Primary Calculus of kidney Stage 3b chronic kidney disease ([facility]/HCC) Type 2 diabetes mellitus with chronic kidney disease, without long-term current use of insulin, unspecified CKD stage Hypertensive chronic kidney disease with stage 1 through stage 4 chronic kidney disease, or unspecified chronic kidney disease Chronic kidney disease-mineral and bone disorder (CKD-MBD) documented in this encounter Additional Health Concerns Assessment Noted Time PHQ-9 Depression Total Score: 0 12/25/19 1:16 PM EDT A fall risk assessment has been complete d for the patient 12/24/2024 1:16 PM EDT A Body Mass Index follow-up plan has been documented for the patient 12/25/2024 2:16 PM EDT documented as of this encounter Care Teams Armor Reconnaissance Vehicle Crewman Relationship Specialty Start Date End Date Cristela Marmolejo APRN [address] [place] [phone] PCP - General 10/01/24 documented as of this encounter
--- OUTSIDE RECORDS SUMMARY | 2025-01-18 16:30 | XMS_ITS ---
Author Organization [facility] [place] Address [address] [place], [place] [id number] Care Team Providers Care Shaper And Presser Name Role Phone NAVIN GONZALEZ DO Primary Care Provider Unavaila REX [place] Unavailable [phone] Migration, Provider Unavailable Unavailable [facility] Encounter Medications Medication SIG (Take, Route, Frequency, Duration) Notes Start Date End Date Status Viagra 100 MG Tablet 1 tab(s) orally onc e a day Active SLO MAG 64 MG TABLET 1 TAB ORAL QD *Please rev iew for potential replacement for e-prescription and drug interaction check* Active Multivitamin QD *Please review and pick correct strength-formulat ion from [facility] options. If intended option is not shown, discontinue and re-order from Quick Search* Active Lantus 100 UNIT/ML Solution 0 subcutaneously Active Ventolin HFA 108 (90 Base) MCG/ACT Aerosol Solution 2 puff(s) inhaled every 6 hours PRN Active Ranolazine ER 500 MG TABLET, EXTENDED RELEASE 1 TAB(S) ORALLY 2 TIMES A DAY; Duration: 90 DAYS *Please review and pick correct strength-formulat ion from [facility] options. If intended option is not shown, discontinue and re-order from Quick Search* 02/08/2024 04/17/2025 Active Plavix 75 MG Tablet 1 tab(s) orally once a day; Duration: 90 days Active Sotalol HCl 120 MG Tablet 1 tab(s) orally 2 times a day Active POTASSIUM CITRATE, 454 G *Please review for potential replacement for e-prescription and drug interaction check* Active Atorvastatin Calcium 40 MG Tablet 1 tab(s) orally once a day; Duration: 90 days Active amLODIPine Besylate 5 MG Tablet 1 tab(s) orally once a day Active Nitroglycerin 0.4 MG Tablet Sublingual 1 tab(s) sublingually every 5 minutes Active Ozempic (1 MG/DOSE) 2 MG/1.5 ML SOLUTION 0.5MG SUBCUTANEOUSLY ONCE A WEEK *Please review and pick correct strength-formulat ion from [facility] options. If intended option is not shown, discontinue and re-order from Quick Search* Active Telmisartan 20 MG Tablet 1 tab(s) orally once a day IN THE EVENING 02/23/2020 Active Aspirin 81 MG Tablet Delayed Release 1 tab(s) orally once a day 02/23/2020 Active Encounters Encounter Location Date Provider Diagnosis [facility] [place] [address] [place], [place] [id number] 01/18/2025 Provider Migration Hyperlipidemia E78.49 ; Essential (primary) hypertension I10 and Ischemic Heart Disease I25.89 Assessments Encounter Date Diagnosis (ICD Code) Assessment Notes Treatment Notes Treatment Clinical Notes Section Notes 01/18/2025 Hyperlipidemia (ICD-10 - E78.49) 01/18/2025 Essential (primary) hypertension (ICD-10 - I10) 01/18/2025 Ischemic Heart Disease (ICD-10 - I25.89) Plan Of Treatment Medication Medication Name Sig Start Date Stop Date Notes Ranolazine ER 500 MG TABLET, EXTENDED RELEASE 1 TAB(S) ORALLY 2 TIMES A DAY; Duration: 90 DAYS 02/08/2024 04/17/2025 *Please review and pick correct strength-formulation from [facility] options. If intended option is not shown, discontinue and re-order from Quick Search* Plavix 75 MG Tablet 1 tab(s) orally once a day; Duration: 90 days Sotalol HCl 120 MG Tablet 1 tab(s) orally 2 times a day Atorvastatin Calcium 40 MG Tablet 1 tab(s) orally once a day; Duration: 90 days amLODIPine Besylate 5 MG Tablet 1 tab(s) orally once a day Nitroglycerin 0.4 MG Tablet Sublingual 1 tab(s) sublingually every 5 minutes Telmisartan 20 MG Tablet 1 tab(s) orally once a day IN THE EVENING 02/23/2020 Aspirin 81 MG Tablet Delayed Release 1 tab(s) orally once a day 02/23/2020 Progress Notes * BECKY WATTS PDOB:[birth year] (64 yo M)Acc No.[id number]:01/18/2025 Patient: BECKY JARA Provider: :1960 A ge:64 Y S ex:Male Date:01/18/2025 Address:[address] [place] [address] [place], [id number] Pcp:NAVIN GONZALEZ, Subjective: * Chief Complaints: * [facility] Conversion Encounter * Medications: T akingPOTASSIUM CITRATE, 454 G Multivitamin QD Lantus 100 UNIT/ML Solution 0 subcutaneously Ventolin HFA 108 (90 Base) MCG/ACT Aerosol Solution 2 puff(s) inhaled every 6 hours PRN Viagra 100 MG Tablet 1 tab(s) orally once a day SLO MAG 64 MG TABLET 1 TAB ORAL QD Ozempic (1 MG/DOSE) 2 MG/1.5 ML SOLUTION 0.5MG SUBCUTANEOUSLY ONCE A WEEK Taking POTASSIUM CITRATE, 454 G Taking Multivitamin QD Taking Lantus 100 UNIT/ML Solution 0 subcutaneously Taking Ventolin HFA 108 (90 Base) MCG/ACT Aerosol Solution 2 puff(s) inhaled every 6 hours PRN Taking Viagra 100 MG Tablet 1 tab(s) orally once a day Taking SLO MAG 64 MG TABLET 1 TAB ORAL QD Taking Ozempic (1 MG/DOSE) 2 MG/1.5 ML SOLUTION 0.5MG SUBCUTANEOUSLY ONCE A WEEK Assessment: * Assessment: 1. H yperlipidemia - E78.49 2 . E ssential (primary) hypertension - I10? 3. I schemic Heart Disease - I25.89 Plan: * Treatment: 2. E ssential (primary) hypertension Continue amLODIPine Besylate Tablet, 5 MG, 1 tab(s), orally, once a day; C ontinue Telmisartan Tablet, 20 MG, 1 tab(s), orally, once a day IN THE EVENING. 3. I schemic Heart Disease Continue Nitroglycerin Tablet Sublingual, 0.4 MG, 1 tab(s), sublingually, every 5 minutes; C ontinue Aspirin Tablet Delayed Release, 81 MG, 1 tab(s), orally, once a day; C ontinue Sotalol HCl Tablet, 120 MG, 1 tab(s), orally, 2 times a day; R efill Ranolazine ER TABLET, EXTENDED RELEASE, 500 MG, 1 TAB(S), ORALLY, 2 TIMES A DAY, 90 DAYS, 180, Refills 3; R efill Plavix Tablet, 75 MG, 1 tab(s), orally, once a day, 90 days, 90, Refills 3. Billing Information: * Procedure Codes: * Electronic signature of Prov ider Migration on 02/20/2025 at 06:55 AM EST Sign off status: Pending * Provider: Date: Generated for Rodrigo joseph/Valeria/Richarditting on: 04/22/2024 06:55 AM EST
--- OUTSIDE RECORDS SUMMARY | 2025-02-19 08:09 | XMS_ITS | Continuity of Care Document ---
Author Organization [facility]. If a dditional information is needed, contact Health Information Management at [phone] Address [address] [place] [address] Phone Care Team Providers Care Remarketing Manager Name Role Phone Unavailable Unavailable Unavailable Unavailable Unavailable Unavailable Unavailable Unavailable Unavailable Unavailable Unavailable Unavailable Unavailable Unavailable Unavailable Unavailable Unavailable Unavailable Unavailable Unavailable Unavailable Unavailable Unavailable Unavailable Unavailable Unavailable Unavailable Unavailable Unavailable Unavailable Unavailable Unavailable Unavailable Unavailable Unavailable Unavailable Unavailable Unavailable Unavailable Unavailable Unavailable Unavailable Unavailable Unavailable Unavailable Unavailable Unavailable Unavailable Unavailable Unavailable Unavailable Unavailable Unavailable Unavailable Unavailable Unavailable Unavailable Unavailable Unavailable Unavailable Unavailable Unavailable Unavailable Unavailable Unavailable Unavailable Unavailable Unavailable Unavailable Unavailable Unavailable Unavailable Unavailable Unavailable Unavailable Unavailable Unavailable Unavailable Unavailable Unavailable Unavailable Unavailable Unavailable Unavailable Unavailable Unavailable Unavailable Unavailable Unavailable Unavailable Unavailable Unavailable Unavailable Unavailable Unavailable Unavailable Unavailable Unavailable Unavailable Unavailable Unavailable Unavailable Unavailable Unavailable Unavailable Unavailable Unavailable Unavailable Unavailable Unavailable Unavailable Problems Chronic kidney disease Onset:20-Aug-2023 Nilesh Patton APRN Gastrointestinal obstruction Onset:20-Aug-2023 COLTA Low blood pressure Onset:10-Mar-2023 Bebeto HOFFMAN Dyspnea Onset:08-Mar-2023 Sarkis Cordova MD Anemia Onset:03-Mar-2023 Kavita Lawrence DO Serum creatinine above reference range Onset:22-May-2022 GRACH99 Hyperlipidemia Onset:22-May-2022 Nilesh Patton APRN Urinary tract infectious disease Onset:22-Jul-2021 Simone Tavera MD Fever Onset:23-Jun-2021 MCCAM1 Nausea Onset:23-Jun-2021 MCCAM1 Flank pain Onset:23-Jun-2021 MCCAM1 Hydronephrosis Onset:30-Jul-2019 Kidney stone Onset:30-Jul-2019 Pain of right testicle Onset:30-Jul-2019 Megsimone Lujan L DO Backache Onset:30-Jul-2019 Meggison Tai L DO Blood in urine Onset:30-Jul-2019 Meggison Tai L DO Coronary arteriosclerosis Onset:29-Jan-2019 Robe Patton MD Cardiovascular stress test abnormal Onset:28-Jan-2019 Nilesh Patton APRN Angina pectoris Onset:28-Jan-2019 Nilesh Patton APRN Chest pain Onset:27-Jan-2019 Diabetes mellitus Onset:27-Jan-2019 Megkateson Tai L DO Morbid obesity Onset:27-Jan-2019 Meggison Tai L DO Ventricular bigeminy Onset:27-Jan-2019 Meggison Tai L DO Acute disease Onset:27-Jan-2019 Meggison Tai L DO Lightheadedness Onset:04-Mar-2018 Aayush Mercado MD Dizziness present Onset:04-Mar-2018 Aayush Mercado MD Preinfarction syndrome Onset:04-Mar-2018 Aayush Mercado MD Allergic reaction Onset:22-Dec-2016 Ureteric stone Onset:06-Apr-2014 Hyperglycemia Onset:06-Apr-2014 Stented coronary artery Comments:Stented coronary artery H/O: heart disorder Comments:History of coronary artery disease Body mass index 30+ - obesit y Comments:BMI 35.0-35.9,adult Non-cardiac chest pain Comments:Non-cardiac chest pain Bradycardia Comments:Bradycardia Impotence of organic origin Comments:Erectile dysfunction, unspecified erectile dysfunction type Recurrent kidney stone Comments:Recurrent nephrolithiasis Chronic kidney disease stage 3A Comments:Stage 3a chronic kidney disease Chronic kidney disease stage 3 Comments:CKD (chronic kidney disease) stage 3, GFR 30-59 ml/min Low back pain Comments:Low back pain Cervical nerve root pain Comments:Cervical radicular pain Rheumatoid arthritis of multiple joints Comments:Rheumatoid arthritis involving multiple sites with positive rheumatoid factor Complication of implant Comments:Gastric band malfunction Hiatal hernia Comments:Hiatal hernia Asthma Comments:Uncomplicated asthma, unspecified asthma severity Calcific coronary arteriosclerosis Comments:Coronary atherosclerosis due to calcified coronary lesion Essential (primary) hypertension(I10) Comments:Essential hypertension Benign essential hypertensio n Comments:Benign essential hypertension Insomnia Comments:Insomnia, unspecified type Hypercholesterolemia Comments:Hypercholesterole heather Obese class I Comments:Obesity (BMI 30.0-34.9) Obesity caused by energy imbalance Comments:Morbid (severe) obesity due to excess calories Type 2 diabetes mellitus without complication Comments:Type 2 diabetes mellitus without complication, without long-term current use of insulin Mental Status Cognitive function finding 03-Mar-2023 Cognitive function finding 20-Feb-2023 Cognitive function finding 22-May-2022 Cognitive function finding 21-Jul-2021 Cognitive function finding 30-Jul-2019 Cognitive function finding 27-Jan-2019 Cognitive function finding 01-Mar-2018 Functional Status Functional finding 20-Aug-2023 Functional finding 03-Mar-2023 Functional finding 20-Feb-2023 Functional finding 21-Jul-2021 Allergies and Adverse Reactions Soap From BETADINE(Allergy) Onset: 21-Jul-2021 Reaction:HIVES DIAL SOAP(Allergy) Onset: 30-Jul-2019 Reaction:Hives Medications Amoxicillin 875 MG Oral Tablet;875 MG Orally Twice a day, 1 tablet Quantity:10 LISA HOLDEN Magda Start:10-Jan-2024 Status:Inactive Comments:875 MG Orally Twice a day, 1 tablet calcium chloride 0.2 MG/ML / potassium chloride 0.3 MG/ML / sodium chloride 6 MG/ML / sodium lactate 3.1 MG/ML Injectable Solution;Provider Administration Instructions:* PACU order, D/C after transfer * KAFAH Start:13-Dec-2023 Status:Discontinued Comments:Provider Administration Instructions:* PACU order, D/C after transfer * lidocaine hydrochloride 20 M G/ML Injectable Solution Quantity:1 Yumiko Vinson MD Start:13-Dec-2023 Status:Discontinued 100 ML acetaminophen 10 MG/M L Injection [Ofirmev];Provider Administration Instructions:* Infuse the dose over 15 minutes.* Visually inspect parenteral products for particulatematter and discoloration prior to administrationwhenever solution and container permit.* To reduce the risk of dosing errors that can lead to Quantity:1 Yumiko Vinson MD Start:13-Dec-2023 Status:Discontinued Comments:Provider Administration Instructions:* Infuse the dose over 15 minutes.* Visually inspect parenteral products for particulatematter and discoloration prior to administrationwhenever solution and container permit.* To reduce the risk of dosing errors that can lead to 2 ML sugammadex 100 MG/ML Injection [Bridion] Quantity:1 Yumiko Vinson MD Start:13-Dec-2023 Status:Discontinued lidocaine hydrochloride 20 M G/ML Injectable Solution Quantity:1 Yumiko Vinson MD Start:13-Dec-2023 Status:Discontinued rocuronium bromide 10 MG/ML Injectable Solution [Zemuron];Provider Administration Instructions: WARNING: CAUSES RESPIRATORY ARREST PATIENT MUST BEVENTILATED HIGH-ALERT DRUG Quantity:1 Yumiko Vinson MD Start:13-Dec-2023 Status:Discontinued Comments:Provider Administration Instructions: WARNING: CAUSES RESPIRATORY ARREST PATIENT MUST BEVENTILATED HIGH-ALERT DRUG midazolam 1 MG/ML Injectable Solution Quantity:1 Yumiko Vinson MD Start:13-Dec-2023 Status:Discontinued Propofol 10 MG/ML Injectable Suspension [Diprivan] Quantity:1 Yumiko Vinson MD Start:13-Dec-2023 Status:Discontinued 2 ML fentaNYL 0.05 MG/ML Injection Quantity:1 Yumiko Vinson MD Start:13-Dec-2023 Status:Discontinued CLOVES;BEDTIME Start:06-Dec-2023 Comments:BEDTIME sildenafil 100 MG Oral Table t;100 MILLIGRAM PO DAILY PRN Start:06-Dec-2023 Comments:100 MG PO DAILY PRN As Needed for ASDIR amLODIPine 5 MG Oral Tablet; 5 MILLIGRAM PO BEDTIME Start:06-Dec-2023 Comments:5 MG PO BEDTIME aspirin 81 MG Delayed Releas e Oral Tablet;81 MILLIGRAM PO DAILY Start:06-Dec-2023 Status:Discontinued Comments:81 MG PO DAILY clopidogrel 75 MG Oral Table t;75 MILLIGRAM PO DAILY Start:06-Dec-2023 Status:Discontinued Comments:75 MG PO DAILY potassium citrate 10 MEQ Ext ended Release Oral Tablet;10 MILLIEQUIVALENT PO TID MEALS Start:06-Dec-2023 Comments:10 MEQ PO TID MEALS diclofenac sodium 0.01 MG/MG Topical Gel;2 GRAM TOPICAL QID Start:06-Dec-2023 Comments:2 GRAM TOPICAL QID As Needed for ASDIR triamcinolone acetonide 1 MG /ML Topical Cream;1 APPLICATION TOPICAL BID Start:06-Dec-2023 Comments:1 APPLIC TOPICAL BID insulin glargine-yfgn 100 UN T/ML Injectable Solution;35 UNITS BEDTIME Quantity:2 Camden Mercado MD Start:21-Aug-2023 Status:Discontinued Comments:[id number] finasteride 5 MG Oral Tablet ;5 MILLIGRAM BEDTIME Quantity:1 Camden Mercado MD Start:20-Aug-2023 Status:Discontinued Comments:[id number] Administration Instructions:* Women who are or may get must nothandle/administer broken or crushed finasteride tablets. * atorvastatin 40 MG Oral Tabl et [Lipitor];40 MILLIGRAM BEDTIME Quantity:1 Camden Mercado MD Start:20-Aug-2023 Status:Discontinued Comments:[id number] tamsulosin hydrochloride 0.4 MG Oral Capsule [Flomax];0.4 MILLIGRAM PC DIN Quantity:1 Camden Mercado MD Start:20-Aug-2023 Status:Discontinued Comments:[id number] Administration Instructions:DO NOT CRUSH, CUT OR CHEW. ADMINISTER 30 MINUTES AFTER THESAME MEAL EACH DAY calcium chloride 0.2 MG/ML / potassium chloride 0.3 MG/ML / sodium chloride 6 MG/ML / sodium lactate 3.1 MG/ML Injectable Solution;Provider Administration Instructions:* PACU order, D/C after transfer * KANNA01 Start:20-Aug-2023 Status:Discontinued Comments:Provider Administration Instructions:* PACU order, D/C after transfer * clopidogrel 75 MG Oral Table t [Plavix];75 MILLIGRAM DAILY Quantity:1 Camden Mercado MD Start:20-Aug-2023 Status:Discontinued Comments:[id number] aspirin 81 MG Chewable Table t;81 MILLIGRAM DAILY Quantity:1 Camden Mercado MD Start:20-Aug-2023 Status:Discontinued Comments:[id number] famotidine 10 MG/ML Injectab le Solution;20 MILLIGRAM DAILY Quantity:1 Camden Mercado MD Start:20-Aug-2023 Status:Discontinued Comments:[id number] Administration Instructions:DILUTE 20MG WITH 10ML NS PUSH, PUSH TOTALVOLUME OVER 2 MINUTES LOSARTAN POTASSIUM 50 MG TABLET_LOSA50TA;50 MILLIGRAM DAILY Quantity:1 Camden Mercado MD Start:20-Aug-2023 Status:Discontinued Comments:[id number] loratadine 10 MG Oral Tablet ;10 MILLIGRAM DAILY Quantity:1 Camden Mercado MD Start:20-Aug-2023 Status:Discontinued Comments:[id number] Sotalol Hydrochloride 120 MG Oral Tablet;120 MILLIGRAM BID Quantity:1 Camden Mercado MD Start:20-Aug-2023 Status:Discontinued Comments:[id number] THERAPEUTIC VIT/MIN_THEROT10 34;1 TABLET DAILY Quantity:1 Camden Mercado MD Start:20-Aug-2023 Status:Discontinued Comments:[id number] albuterol 0.83 MG/ML Inhalat ion Solution;2.5 MILLIGRAM RTQID Quantity:1 Camden Mercado MD Start:20-Aug-2023 Status:Discontinued Comments:[id number] Administration Instructions: (NF)SYMBICORT 160-4.5 MCG IS NON-FORMULARYPULMICORT RESPULES (BUDESONIDE) PLUS ALBUTEROL AREP T APPROVED THERAPEUTIC SUBSTITUTIONSSYMBICORT 160-4.5 MCG => PULMICORT RESPULES(BUDESONIDE) 0.4 ML enoxaparin sodium 100 MG/ML Prefilled Syringe [Lovenox];40 MILLIGRAM DAILY@0600 Quantity:1 Camden Mercado MD Start:20-Aug-2023 Status:Discontinued Comments:[id number] Administration Instructions:PER P T-DOSES MAY BE ROUNDED TO NEAREST 10MGDO NOT EXPEL AIR OUT OF SYRINGEGIVE SQ WHEN PT IS LYING DOWN. acetaminophen 325 MG Oral Tablet;650 MILLIGRAM Q6H PRN Quantity:2 Camden Mercado MD Start:20-Aug-2023 Status:Discontinued Comments:[id number] Administration Instructions:MAXIMUM DAILY DOSE OF ACETAMINOPHEN = 4000 MG traMADol hydrochloride 50 MG Oral Tablet;50 MILLIGRAM Q6H PRN Quantity:1 Camden Mercado MD Start:20-Aug-2023 Status:Discontinued Comments:[id number] traMADol hydrochloride 50 MG Oral Tablet;100 MILLIGRAM Q6H PRN Quantity:2 Camden Mercado MD Start:20-Aug-2023 Status:Discontinued Comments:[id number] Morphine Sulfate 2 MG/ML Injectable Solution;2 MILLIGRAM Q4H PRN Quantity:1 Camden Mercado MD Start:20-Aug-2023 Status:Discontinued Comments:[id number] Administration Instructions:For patients not responding to oral medication (Defined aspain reassessment score of 7 or greater) or patient NPO naloxone hydrochloride 0.4 M G/ML Injectable Solution;0.1 MILLIGRAM Q2M PRN Quantity:1 Camden Mercado MD Start:20-Aug-2023 Status:Discontinued Comments:[id number] Administration Instructions:Administer IV in increments of 0.1 mg every 2 minutes up to0.4 mg to reverse opioid induced respiratory depression)Opioid-induced respiratory depression is usually describedin terms of decreased respiratory rates, <8 or <10 Albuterol 0.83 MG/ML / Ipratropium [place] 0.17 MG/ML Inhalant Solution;3 MILLILITER RTQ6H Quantity:1 Camden Mercado MD Start:20-Aug-2023 Status:Discontinued Comments:[id number] Albuterol 0.83 MG/ML / Ipratropium [place] 0.17 MG/ML Inhalant Solution;3 MILLILITER RTQ6H PRN Quantity:1 Camden Mercado MD Start:20-Aug-2023 Status:Discontinued Comments:[id number] budesonide 0.25 MG/ML Inhala tion Suspension [Pulmicort];0.5 MILLIGRAM RTBID Quantity:1 Camden Mercado MD Start:20-Aug-2023 Status:Discontinued Comments:[id number] Administration Instructions: (NF)SYMBICORT 160-4.5 MCG IS NON-FORMULARYPULMICORT RESPULES (BUDESONIDE) PLUS ALBUTEROL AREP T APPROVED THERAPEUTIC SUBSTITUTIONSSYMBICORT 160-4.5 MCG => PULMICORT RESPULES(BUDESONIDE) insulin glargine-yfgn 100 UN T/ML Injectable Solution;15 UNITS BEDTIME Quantity:1 Camden Mercado MD Start:20-Aug-2023 Status:Discontinued Comments:[id number] calcium chloride 0.2 MG/ML / potassium chloride 0.3 MG/ML / sodium chloride 6 MG/ML / sodium lactate 3.1 MG/ML Injectable Solution Camden Mercado MD Start:20-Aug-2023 Status:Discontinued nitroglycerin 0.4 MG Subling ual Tablet;0.4 MILLIGRAM Q5M PRN Quantity:1 Camden Mercado MD Start:20-Aug-2023 Status:Discontinued Comments:[id number] Administration Instructions:x 3 doses hold for SBP less than 90 mm Hg ondansetron 2 MG/ML Injectab le Solution [Zofran];4 MILLIGRAM Q8H PRN Quantity:1 Camden Mercado MD Start:20-Aug-2023 Status:Discontinued Comments:[id number] Administration Instructions:4 MG dose may be given IV push over 2 MINUTESDoses > 4 mg: Use 50 mL D5W or 0.9% NaCl infuse over 15 minutes glucose 4000 MG Chewable Tablet;16 GRAM ASDIR Quantity:4 Camden Mercado MD Start:20-Aug-2023 Status:Discontinued Comments:[id number] Administration Instructions:* If patient asymptomatic, give juice and crackers and callthe physician* If patient able to swallow, give Glucose chewable leplwoy28 gram orally as needed for blood glucose <60 orsymptomatic hypoglycemiaCHEW TABLETS THOROUGHLY BEFORE SWALLOWING 50 ML glucose 500 MG/ML Pref illed Syringe;[id number] Administration Instructions:If patient unable to swallow and has IV access* blood sugar 60-69 mg/dl- hold insulinand administer 15 mL (7.5 grams);* Blood sugar 50-59 mg/dl- hold insulinand administer 20 mL (10 grams);* Blood sugar 30-49 mg/dl- hold insulin and Quantity:0 Camden Mercado MD Start:20-Aug-2023 Status:Discontinued Comments:[id number] Administration Instructions:If patient unable to swallow and has IV access* blood sugar 60-69 mg/dl- hold insulinand administer 15 mL (7.5 grams);* Blood sugar 50-59 mg/dl- hold insulinand administer 20 mL (10 grams);* Blood sugar 30-49 mg/dl- hold insulin and LOVENOX - PHARMACY TO DOSE;1 EACH ASDIR Quantity:1 Camden Mercado MD Start:20-Aug-2023 Status:Discontinued Comments:[id number] Administration Instructions:THIS IS NOT A MEDICATIONTHIS IS A REMINDER TO PROVIDERS THAT PHARMACYIS CONSULTED TO DOSE LOVENOX FOR THIS PT Quviviq;50 MG Orally Once a day, 1 tablet within 30 minutes of bedtime Quantity:30 LISA Man Start:16-Aug-2023 Status:Inactive Comments:50 MG Orally Once a day, 1 tablet within 30 minutes of bedtime HumaLOG;[id number] Administration Instructions:AGGRESSIVE SLIDING FRYQW31-522 MG/DL, 0 FMHNK465-144 MG/DL, 2 NIXVC809-137 MG/DL, 4 UDEMP168-945 MG/DL, 6 RJWGY927-404 MG/DL, 8 FKBFZ255-782 MG/DL, 10 UNITS>= 400 MG/DL, 12 UNITS ANDCALL RESULTS TO PHYSICIAN Quantity:0 Vega Mercado DO Start:11-Mar-2023 Status:Discontinued Comments:[id number] Administration Instructions:AGGRESSIVE SLIDING NFEMW45-320 MG/DL, 0 FNSWG121-366 MG/DL, 2 GKKCL861-698 MG/DL, 4 HYDQN298-762 MG/DL, 6 TIJMV130-604 MG/DL, 8 FBDQM560-315 MG/DL, 10 UNITS>= 400 MG/DL, 12 UNITS ANDCALL RESULTS TO PHYSICIAN Albuterol 0.83 MG/ML / Ipratropium [place] 0.17 MG/ML Inhalant Solution;3 MILLILITER RTQ4H [place] Quantity:1 Aldo Deng MD Start:10-Mar-2023 Status:Discontinued Comments:[id number] HumaLOG;[id number] Administration Instructions:REGULAR SLIDING SCALE FAOHJIPX12-932 MG/DL, 0 GGJJI888-986 MG/DL, 1 AXMLL801-267 MG/DL, 2 OWPMM868-789 MG/DL, 3 YUOVI738-379 MG/DL, 4 UGQWA378-330 MG/DL, 5 UNITS>= 400 MG/DL, 5 UNITS ANDOBTAIN STAT LEVEL AND CALLRESULTS TO PHYSICIAN Quantity:0 Aldo Deng MD Start:10-Mar-2023 Status:Discontinued Comments:[id number] Administration Instructions:REGULAR SLIDING SCALE XCOHXXXZ62-452 MG/DL, 0 ADGJZ130-977 MG/DL, 1 RCVKY140-826 MG/DL, 2 UPQRV704-167 MG/DL, 3 XFOPF815-839 MG/DL, 4 ZFBVG845-641 MG/DL, 5 UNITS>= 400 MG/DL, 5 UNITS ANDOBTAIN STAT LEVEL AND CALLRESULTS TO PHYSICIAN Albuterol 0.83 MG/ML / Ipratropium [place] 0.17 MG/ML Inhalant Solution;3 MILLILITER RTQ4H Quantity:1 Aldo Deng MD Start:09-Mar-2023 Status:Discontinued Comments:[id number] loratadine 10 MG Oral Tablet ;10 MILLIGRAM DAILY Quantity:1 Amari Jolly MD Start:09-Mar-2023 Status:Discontinued Comments:[id number] amLODIPine 5 MG Oral Tablet [Norvasc];5 MILLIGRAM DAILY Quantity:1 Amari Jolly MD Start:09-Mar-2023 Status:Discontinued Comments:[id number] LOSARTAN POTASSIUM 50 MG TABLET_LOSA50TA;50 MILLIGRAM DAILY Quantity:1 Amari Jolly MD Start:09-Mar-2023 Status:Discontinued Comments:[id number] ACTUAT albutero l 0.09 MG/ACTUAT Metered Dose Inhaler;1 PUFF INH Q4HR Start:09-Mar-2023 Comments:1 PUFF INH Q4HR 1 ML Sodium Chloride 9 MG/ML Prefilled Syringe;10 MILLILITER Q12HR Quantity:1 Steve Russo MD Start:08-Mar-2023 Status:Discontinued Comments:[id number] Administration Instructions:flush every shift and before after each IVmedication is administered atorvastatin 40 MG Oral Tabl et [Lipitor];40 MILLIGRAM BEDTIME Quantity:1 Amari Jolly MD Start:08-Mar-2023 Status:Discontinued Comments:[id number] Sotalol Hydrochloride 120 MG Oral Tablet;120 MILLIGRAM BID Quantity:1 Amari Jolly MD Start:08-Mar-2023 Status:Discontinued Comments:[id number] gabapentin 300 MG Oral Capsu le [Neurontin];300 MILLIGRAM BID Quantity:1 Amari Jolly MD Start:08-Mar-2023 Status:Discontinued Comments:[id number] insulin glargine-yfgn 100 UN T/ML Injectable Solution;35 UNITS BEDTIME Quantity:2 Amari Jolly MD Start:08-Mar-2023 Status:Discontinued Comments:[id number] tamsulosin hydrochloride 0.4 MG Oral Capsule [Flomax];0.4 MILLIGRAM PC DIN Quantity:1 Amari Jolly MD Start:08-Mar-2023 Status:Discontinued Comments:[id number] Administration Instructions:DO NOT CRUSH, CUT OR CHEW insulin, regular, human 100 UNT/ML Injectable Solution [HumuLIN R];[id number] Administration Instructions:REGULAR SLIDING SCALE GDOUIEDU31-699 MG/DL, 0 ANTLL014-732 MG/DL, 1 ZRPBV798-375 MG/DL, 2 KTOLZ228-546 MG/DL, 3 KNXOY001-154 MG/DL, 4 NVGBM349-218 MG/DL, 5 UNITS>= 400, 5 UNITS ANDOBTAIN STAT BS AND CALLRESULTS TO PHYSICIAN Quantity:0 Amari Jolly MD Start:08-Mar-2023 Status:Discontinued Comments:[id number] Administration Instructions:REGULAR SLIDING SCALE SYFDKQXV93-145 MG/DL, 0 ISVHZ725-306 MG/DL, 1 KYGXG436-485 MG/DL, 2 ECPXO950-292 MG/DL, 3 ZIRQI156-888 MG/DL, 4 LCNUS244-698 MG/DL, 5 UNITS>= 400, 5 UNITS ANDOBTAIN STAT BS AND CALLRESULTS TO PHYSICIAN 1 ML Sodium Chloride 9 MG/ML Prefilled Syringe;10 MILLILITER ASDIR Quantity:1 Steve Russo MD Start:08-Mar-2023 Status:Discontinued Comments:[id number] Administration Instructions:flush every shift and before after each IVmedication is administered ondansetron 4 MG Disintegrat ing Oral Tablet;4 MILLIGRAM Q8H PRN Quantity:1 Amari Jolly MD Start:08-Mar-2023 Status:Discontinued Comments:[id number] Administration Instructions:* Place tablet on the tongue; it will dissolve in seconds.* Once dissolved, the patient may swallow with saliva.* DO NOT attempt to push ODT tablets through foil backing.* With dry hands, peel back the foil of 1 blister andremove the tablet. glucose 4000 MG Chewable Tablet;16 GRAM ASDIR Quantity:4 Amari Jolly MD Start:08-Mar-2023 Status:Discontinued Comments:[id number] Administration Instructions:* If patient asymptomatic, give juice and crackers and callthe physician* If patient able to swallow, give Glucose chewable ewteaxz94 gram orally as needed for blood glucose <60 orsymptomatic hypoglycemiaCHEW TABLETS THOROUGHLY BEFORE SWALLOWING 50 ML glucose 500 MG/ML Pref illed Syringe;[id number] Administration Instructions:If patient unable to swallow and has IV access* blood sugar 60-69 mg/dl- hold insulinand administer 15 mL (7.5 grams);* Blood sugar 50-59 mg/dl- hold insulinand administer 20 mL (10 grams);* Blood sugar 30-49 mg/dl- hold insulin and Quantity:0 Amari Jolly MD Start:08-Mar-2023 Status:Discontinued Comments:[id number] Administration Instructions:If patient unable to swallow and has IV access* blood sugar 60-69 mg/dl- hold insulinand administer 15 mL (7.5 grams);* Blood sugar 50-59 mg/dl- hold insulinand administer 20 mL (10 grams);* Blood sugar 30-49 mg/dl- hold insulin and nitroglycerin 0.4 MG Subling ual Tablet;0.4 MILLIGRAM Q5M PRN Quantity:1 Amari Jolly MD Start:08-Mar-2023 Status:Discontinued Comments:[id number] Administration Instructions:MAY GIVE Q5 MIN X 3 PRN CHEST PAIN Albuterol 0.83 MG/ML / Ipratropium [place] 0.17 MG/ML Inhalant Solution;3 MILLILITER RTQ4H PRN Quantity:1 Amari Jolly MD Start:08-Mar-2023 Status:Discontinued Comments:[id number] amLODIPine 5 MG Oral Tablet [Norvasc];5 MILLIGRAM DAILY Quantity:1 Camden Mercado MD Start:08-Mar-2023 Status:Discontinued Comments:[id number] LOSARTAN POTASSIUM 50 MG TABLET_LOSA50TA;50 MILLIGRAM DAILY Quantity:1 Camden Mercado MD Start:08-Mar-2023 Status:Discontinued Comments:[id number] Administration Instructions:Micardis 20 mg DAILY ---------> Cozaar 50 mg DAILY Albuterol 0.83 MG/ML / Ipratropium [place] 0.17 MG/ML Inhalant Solution;3 MILLILITER RTQ4H PRN Quantity:1 Aldo Deng MD Start:07-Mar-2023 Status:Discontinued Comments:[id number] melatonin 3 MG Oral Tablet;3 MILLIGRAM BEDTIME PRN Quantity:1 Camden Mercado MD Start:06-Mar-2023 Status:Discontinued Comments:[id number] calcium chloride 0.2 MG/ML / potassium chloride 0.3 MG/ML / sodium chloride 6 MG/ML / sodium lactate 3.1 MG/ML Injectable Solution Milena Jolly DO Start:05-Mar-2023 Status:Discontinued tamsulosin hydrochloride 0.4 MG Oral Capsule [Flomax];0.4 MILLIGRAM PC DIN Quantity:1 Camden Mercado MD Start:05-Mar-2023 Status:Discontinued Comments:[id number] Administration Instructions:DO NOT CRUSH, CUT OR CHEW amLODIPine 5 MG Oral Tablet [Norvasc];5 MILLIGRAM DAILY Quantity:1 Camden Mercado MD Start:05-Mar-2023 Status:Discontinued Comments:[id number] LOSARTAN POTASSIUM 50 MG TABLET_LOSA50TA;50 MILLIGRAM DAILY Quantity:1 Camden Mercado MD Start:05-Mar-2023 Status:Discontinued Comments:[id number] Administration Instructions:Micardis 20 mg DAILY ---------> Cozaar 50 mg DAILY Sotalol Hydrochloride 120 MG Oral Tablet;120 MILLIGRAM BID Quantity:1 Camden Mercado MD Start:05-Mar-2023 Status:Discontinued Comments:[id number] Albuterol 0.83 MG/ML / Ipratropium [place] 0.17 MG/ML Inhalant Solution;3 MILLILITER RTQ6H Quantity:1 Camden Mercado MD Start:05-Mar-2023 Status:Discontinued Comments:[id number] calcium chloride 0.2 MG/ML / potassium chloride 0.3 MG/ML / sodium chloride 6 MG/ML / sodium lactate 3.1 MG/ML Injectable Solution Milena Adams R2 DO Start:04-Mar-2023 Status:Discontinued atorvastatin 40 MG Oral Tabl et [Lipitor];40 MILLIGRAM BEDTIME Quantity:1 Camden Mercado MD Start:03-Mar-2023 Status:Discontinued Comments:[id number] insulin glargine-yfgn 100 UN T/ML Injectable Solution;35 UNITS BEDTIME Quantity:2 Camden Mercado MD Start:03-Mar-2023 Status:Discontinued Comments:[id number] tamsulosin hydrochloride 0.4 MG Oral Capsule [Flomax];0.4 MILLIGRAM PC DIN Quantity:1 Camden Mercado MD Start:03-Mar-2023 Status:Discontinued Comments:[id number] Administration Instructions:DO NOT CRUSH, CUT OR CHEW calcium chloride 0.2 MG/ML / potassium chloride 0.3 MG/ML / sodium chloride 6 MG/ML / sodium lactate 3.1 MG/ML Injectable Solution;Provider Administration Instructions:* PACU order, D/C after transfer * MAGDY Start:03-Mar-2023 Status:Discontinued Comments:Provider Administration Instructions:* PACU order, D/C after transfer * 2 ML sugammadex 100 MG/ML Injection [Bridion] Quantity:1 Aldo Deng MD Start:03-Mar-2023 1 ML glycopyrrolate 0.2 MG/M L Injection Quantity:1 Aldo Deng MD Start:03-Mar-2023 Status:Discontinued neostigmine methylsulfate 1 MG/ML Injectable Solution;Provider Administration Instructions:Caution: may cause bradycardia, have atropine available Quantity:1 Aldo Deng MD Start:03-Mar-2023 Status:Discontinued Comments:Provider Administration Instructions:Caution: may cause bradycardia, have atropine available rocuronium bromide 10 MG/ML Injectable Solution [Zemuron];Provider Administration Instructions: WARNING: CAUSES RESPIRATORY ARREST PATIENT MUST BEVENTILATED HIGH-ALERT DRUG Quantity:1 Aldo Deng MD Start:03-Mar-2023 Status:Discontinued Comments:Provider Administration Instructions: WARNING: CAUSES RESPIRATORY ARREST PATIENT MUST BEVENTILATED HIGH-ALERT DRUG 10 ML calcium chloride 100 M G/ML Prefilled Syringe;Provider Administration Instructions:Caution: This medication is a vesicant and should beadministered in a diluted form to minimize the potential forextravasation. Quantity:1 Aldo Deng MD Start:03-Mar-2023 Status:Discontinued Comments:Provider Administration Instructions:Caution: This medication is a vesicant and should beadministered in a diluted form to minimize the potential forextravasation. 10 ML EPINEPHrine 0.1 MG/ML Prefilled Syringe;Provider Administration Instructions:< >< >< >Caution, Look Alike Sound Alike< >< >< > Quantity:1 Aldo Deng MD Start:03-Mar-2023 Comments:Provider Administration Instructions:< >< >< >Caution, Look Alike Sound Alike< >< >< > ondansetron 2 MG/ML Injectab le Solution [Zofran];Provider Administration Instructions:4 MG dose may be given IV push over 2 MINUTESDoses > 4 mg: Use 50 mL D5W or 0.9% NaCl infuse over 15 minutes Quantity:1 Aldo Deng MD Start:03-Mar-2023 Status:Discontinued Comments:Provider Administration Instructions:4 MG dose may be given IV push over 2 MINUTESDoses > 4 mg: Use 50 mL D5W or 0.9% NaCl infuse over 15 minutes 1 ML ePHEDrine sulfate 50 MG /ML Injection;Provider Administration Instructions:< >< >< >Caution, Look Alike Sound Alike< >< >< > Quantity:1 Aldo Deng MD Start:03-Mar-2023 Status:Discontinued Comments:Provider Administration Instructions:< >< >< >Caution, Look Alike Sound Alike< >< >< > 5 ML phenylephrine hydrochlo ride 0.1 MG/ML Injection [Biorphen] Quantity:1 Aldo Deng MD Start:03-Mar-2023 Status:Discontinued 5 ML phenylephrine hydrochlo ride 0.1 MG/ML Injection [Biorphen] Quantity:1 Aldo Deng MD Start:03-Mar-2023 Status:Discontinued insulin, regular, human 100 UNT/ML Injectable Solution [HumuLIN R];Provider Administration Instructions:HIGH ALERT DRUG< >< >< >Caution, Look Alike Sound Alike< >< >< >*DISPOSE OF UNUSED INSULIN IN BLACK BOX* Quantity:1 Aldo Deng MD Start:03-Mar-2023 Status:Discontinued Comments:Provider Administration Instructions:HIGH ALERT DRUG< >< >< >Caution, Look Alike Sound Alike< >< >< >*DISPOSE OF UNUSED INSULIN IN BLACK BOX* lidocaine hydrochloride 20 M G/ML Injectable Solution Quantity:1 Aldo Deng MD Start:03-Mar-2023 Status:Discontinued rocuronium bromide 10 MG/ML Injectable Solution [Zemuron];Provider Administration Instructions: WARNING: CAUSES RESPIRATORY ARREST PATIENT MUST BEVENTILATED HIGH-ALERT DRUG Quantity:1 Aldo Deng MD Start:03-Mar-2023 Status:Discontinued Comments:Provider Administration Instructions: WARNING: CAUSES RESPIRATORY ARREST PATIENT MUST BEVENTILATED HIGH-ALERT DRUG Propofol 10 MG/ML Injectable Suspension [Diprivan] Quantity:1 Aldo Deng MD Start:03-Mar-2023 Status:Discontinued 2 ML fentaNYL 0.05 MG/ML Injection Quantity:1 Aldo Deng MD Start:03-Mar-2023 Status:Discontinued 1 ML Sodium Chloride 9 MG/ML Prefilled Syringe;10 MILLILITER Q12HR Quantity:1 Kavita Lawrence Start:03-Mar-2023 Status:Discontinued Comments:[id number] Administration Instructions:flush every shift and before after each IVmedication is administered loratadine 10 MG Oral Tablet ;10 MILLIGRAM DAILY Quantity:1 Camden Mercado MD Start:03-Mar-2023 Status:Discontinued Comments:[id number] amLODIPine 5 MG Oral Tablet [Norvasc];5 MILLIGRAM DAILY Quantity:1 Camden Mercado MD Start:03-Mar-2023 Status:Discontinued Comments:[id number] LOSARTAN POTASSIUM 50 MG TABLET_LOSA50TA;50 MILLIGRAM DAILY Quantity:1 Camden Mercado MD Start:03-Mar-2023 Status:Discontinued Comments:[id number] Administration Instructions:Micardis 20 mg DAILY ---------> Cozaar 50 mg DAILY Sotalol Hydrochloride 120 MG Oral Tablet;120 MILLIGRAM BID Quantity:1 Camden Mercado MD Start:03-Mar-2023 Status:Discontinued Comments:[id number] THERAPEUTIC VIT/MIN_THEROT10 34;1 TABLET DAILY Quantity:1 Camden Mercado MD Start:03-Mar-2023 Status:Discontinued Comments:[id number] Administration Instructions:Formulary Interchange for: [facility]Rx [id number] DC'd while checking ints/dups/alls on this Rx. THERAPEUTIC VIT/MIN_THEROT10 34;1 TABLET DAILY Quantity:1 Camden Mercado MD Start:03-Mar-2023 Status:Discontinued Comments:[id number] insulin, regular, human 100 UNT/ML Injectable Solution [HumuLIN R];[id number] Administration Instructions:REGULAR SLIDING SCALE DSLMKEXN94-698 MG/DL, 0 GUNKA144-641 MG/DL, 1 VXDJM396-125 MG/DL, 2 TNKUO067-585 MG/DL, 3 QSYDV679-460 MG/DL, 4 EUPLT345-188 MG/DL, 5 UNITS>= 400, 5 UNITS ANDOBTAIN STAT BS AND CALLRESULTS TO PHYSICIAN Quantity:0 Camden Mercado MD Start:03-Mar-2023 Status:Discontinued Comments:[id number] Administration Instructions:REGULAR SLIDING SCALE [id number] MG/DL, 0 BGSRR788-807 MG/DL, 1 SPMUW837-292 MG/DL, 2 USUFQ151-458 MG/DL, 3 PWEPS104-551 MG/DL, 4 FQFPY594-389 MG/DL, 5 UNITS>= 400, 5 UNITS ANDOBTAIN STAT BS AND CALLRESULTS TO PHYSICIAN 72 HR scopolamine 0.0139 MG/ HR Transdermal System [Transderm Scop];1 PATCH Q72H PRN Quantity:1 Camden Mercado MD Start:03-Mar-2023 Status:Discontinued Comments:Provider Administration Instructions:APPLY TO HAIRLESS AREA BEHIND THE EAR nitroglycerin 0.4 MG Subling ual Tablet;0.4 MILLIGRAM Q5M PRN Quantity:1 Camden Mercado MD Start:03-Mar-2023 Status:Discontinued Comments:[id number] Administration Instructions:MAY GIVE Q5 MIN X 3 PRN CHEST PAIN acetaminophen 325 MG Oral Tablet;650 MILLIGRAM Q6H PRN Quantity:2 Camden Mercado MD Start:03-Mar-2023 Status:Discontinued Comments:[id number] Administration Instructions:MAXIMUM DAILY DOSE OF ACETAMINOPHEN = 4000 MG Morphine Sulfate 2 MG/ML Injectable Solution;2 MILLIGRAM Q6H PRN Quantity:1 Camden Mercado MD Start:03-Mar-2023 Status:Discontinued Comments:[id number] Administration Instructions:IF PATIENT IS TAKING ORAL, PLEASE CALL PHARMACY. Morphine Sulfate 2 MG/ML Injectable Solution;1 MILLIGRAM Q4H PRN Quantity:1 Camden Mercado MD Start:03-Mar-2023 Status:Discontinued Comments:[id number] Administration Instructions:IF PATIENT IS TAKING ORAL, PLEASE CALL PHARMACY. naloxone hydrochloride 0.4 M G/ML Injectable Solution;0.1 MILLIGRAM Q2M PRN Quantity:1 Camden Mercado MD Start:03-Mar-2023 Status:Discontinued Comments:[id number] Administration Instructions:Administer IV in increments of 0.1 mg every 2 minutes up to0.4 mg to reverse opioid induced respiratory depression)Opioid-induced respiratory depression is usually describedin terms of decreased respiratory rates, <8 or <10 1 ML Sodium Chloride 9 MG/ML Prefilled Syringe;10 MILLILITER ASDIR Quantity:1 Kavita Lawrence DO Start:03-Mar-2023 Status:Discontinued Comments:[id number] Administration Instructions:flush every shift and before after each IVmedication is administered ondansetron 2 MG/ML Injectab le Solution [Zofran];4 MILLIGRAM Q8H PRN Quantity:1 Camden Mercado MD Start:03-Mar-2023 Status:Discontinued Comments:[id number] Administration Instructions:4 MG dose may be given IV push over 2 MINUTESDoses > 4 mg: Use 50 mL D5W or 0.9% NaCl infuse over 15 minutes glucose 4000 MG Chewable Tablet;16 GRAM ASDIR Quantity:4 Camden Mercado MD Start:03-Mar-2023 Status:Discontinued Comments:[id number] Administration Instructions:* If patient asymptomatic, give juice and crackers and callthe physician* If patient able to swallow, give Glucose chewable plaieqh50 gram orally as needed for blood glucose <60 orsymptomatic hypoglycemiaCHEW TABLETS THOROUGHLY BEFORE SWALLOWING 50 ML glucose 500 MG/ML Pref illed Syringe;[id number] Administration Instructions:If patient unable to swallow and has IV access* blood sugar 60-69 mg/dl- hold insulinand administer 15 mL (7.5 grams);* Blood sugar 50-59 mg/dl- hold insulinand administer 20 mL (10 grams);* Blood sugar 30-49 mg/dl- hold insulin and Quantity:0 Camden Mercado MD Start:03-Mar-2023 Status:Discontinued Comments:[id number] Administration Instructions:If patient unable to swallow and has IV access* blood sugar 60-69 mg/dl- hold insulinand administer 15 mL (7.5 grams);* Blood sugar 50-59 mg/dl- hold insulinand administer 20 mL (10 grams);* Blood sugar 30-49 mg/dl- hold insulin and tamsulosin hydrochloride 0.4 MG Oral Capsule [Flomax];0.4 MILLIGRAM PO PC DIN Start:22-Feb-2023 Status:Discontinued Comments:0.4 MG PO PC DIN amLODIPine 5 MG Oral Tablet [Norvasc];5 MILLIGRAM DAILY Quantity:1 Micky Mercado MD Start:21-Feb-2023 Status:Discontinued Comments:[id number] clopidogrel 75 MG Oral Table t [Plavix];75 MILLIGRAM DAILY Quantity:1 Micky Mercado MD Start:21-Feb-2023 Status:Discontinued Comments:[id number] LOSARTAN POTASSIUM 50 MG TABLET_LOSA50TA;50 MILLIGRAM DAILY Quantity:1 Micky Mercado MD Start:21-Feb-2023 Status:Discontinued Comments:[id number] THERAPEUTIC VIT/MIN_THEROT10 34;1 TABLET DAILY Quantity:1 Micky Mercado MD Start:21-Feb-2023 Status:Discontinued Comments:[id number] THERAPEUTIC VIT/MIN_THEROT10 34;1 TABLET DAILY Quantity:1 Micky Mercado MD Start:21-Feb-2023 Status:Discontinued Comments:[id number] calcium chloride 0.2 MG/ML / potassium chloride 0.3 MG/ML / sodium chloride 6 MG/ML / sodium lactate 3.1 MG/ML Injectable Solution;Provider Administration Instructions:* PACU order, D/C after transfer * KANNA01 Start:21-Feb-2023 Status:Discontinued Comments:Provider Administration Instructions:* PACU order, D/C after transfer * 2 ML sugammadex 100 MG/ML Injection [Bridion] Quantity:1 Yumiko Vinson MD Start:21-Feb-2023 Status:Discontinued famotidine 10 MG/ML Injectab le Solution;Provider Administration Instructions:DILUTE 20MG WITH 10ML NS PUSH, PUSH TOTALVOLUME OVER 2 MINUTES Quantity:1 Yumiko Vinson MD Start:21-Feb-2023 Status:Discontinued Comments:Provider Administration Instructions:DILUTE 20MG WITH 10ML NS PUSH, PUSH TOTALVOLUME OVER 2 MINUTES Metoclopramide 5 MG/ML Injec table Solution [Reglan] Quantity:1 Yumiko Vinson MD Start:21-Feb-2023 Status:Discontinued phenylephrine hydrochloride 10 MG/ML Injectable Solution Quantity:1 Yumiko Vinson MD Start:21-Feb-2023 Status:Discontinued 2 ML dexmedeTOMIDine 0.1 MG/ ML Injection [Precedex] Quantity:1 Yumiko Vinson MD Start:21-Feb-2023 Status:Discontinued 1 ML ePHEDrine sulfate 50 MG /ML Injection;Provider Administration Instructions:< >< >< >Caution, Look Alike Sound Alike< >< >< > Quantity:1 Yumiko Vinson MD Start:21-Feb-2023 Comments:Provider Administration Instructions:< >< >< >Caution, Look Alike Sound Alike< >< >< > lidocaine hydrochloride 20 M G/ML Injectable Solution Quantity:1 Yumiko Vinson MD Start:21-Feb-2023 Status:Discontinued Succinylcholine 20 MG/ML Injectable Solution [Quelicin];Provider Administration Instructions: WARNING: CAUSES RESPIRATORY ARREST PATIENT MUST BEVENTILATED; HIGH-ALERT DRUG Quantity:1 Yumiko Vinson MD Start:21-Feb-2023 Comments:Provider Administration Instructions: WARNING: CAUSES RESPIRATORY ARREST PATIENT MUST BEVENTILATED; HIGH-ALERT DRUG Dexamethasone 4 MG/ML Inject able Solution Quantity:1 Yumiko Vinson MD Start:21-Feb-2023 Status:Discontinued ondansetron 2 MG/ML Injectab le Solution [Zofran];Provider Administration Instructions:4 MG dose may be given IV push over 2 MINUTESDoses > 4 mg: Use 50 mL D5W or 0.9% NaCl infuse over 15 minutes Quantity:1 Yumiko Vinson MD Start:21-Feb-2023 Status:Discontinued Comments:Provider Administration Instructions:4 MG dose may be given IV push over 2 MINUTESDoses > 4 mg: Use 50 mL D5W or 0.9% NaCl infuse over 15 minutes rocuronium bromide 10 MG/ML Injectable Solution [Zemuron];Provider Administration Instructions: WARNING: CAUSES RESPIRATORY ARREST PATIENT MUST BEVENTILATED HIGH-ALERT DRUG Quantity:1 Yumiko Vinson MD Start:21-Feb-2023 Status:Discontinued Comments:Provider Administration Instructions: WARNING: CAUSES RESPIRATORY ARREST PATIENT MUST BEVENTILATED HIGH-ALERT DRUG Propofol 10 MG/ML Injectable Suspension [Diprivan] Quantity:1 Yumiko Vinson MD Start:21-Feb-2023 Status:Discontinued 2 ML fentaNYL 0.05 MG/ML Injection Quantity:1 Yumiko Vinson MD Start:21-Feb-2023 Status:Discontinued 1 ML Sodium Chloride 9 MG/ML Prefilled Syringe;[id number] Administration Instructions:* DO NOT ADMINISTER VIA Y-SITE WITH ANY CALCIUM CONTAININGIV SOLUTIONS (CALCIUM CHLORIDE, CALCIUM GLUCONATE,LACTATED RINGERS, TPN)* FLUSH IV LINE WITH SALINE IN BETWEEN ADMINISTRATION OFCEFTRIAXONE AND ANY CALCIUM CONTAINING IV SOLUTION Yumiko Vinson MD Start:21-Feb-2023 Status:Discontinued Comments:[id number] Administration Instructions:* DO NOT ADMINISTER VIA Y-SITE WITH ANY CALCIUM CONTAININGIV SOLUTIONS (CALCIUM CHLORIDE, CALCIUM GLUCONATE,LACTATED RINGERS, TPN)* FLUSH IV LINE WITH SALINE IN BETWEEN ADMINISTRATION OFCEFTRIAXONE AND ANY CALCIUM CONTAINING IV SOLUTION 8 HR acetaminophen 650 MG Extended Release Oral Tablet;650 MILLIGRAM PO Q8HR Start:21-Feb-2023 Status:Discontinued Comments:650 MG PO Q8HR sulfamethoxazole 800 MG / trimethoprim 160 MG Oral Tablet;1 TABLET PO BID Start:21-Feb-2023 Status:Discontinued Comments:1 TAB PO BID Heparin sodium 5000 UNT/ML Injectable Solution;5000 UNITS Q8HR Quantity:1 Micky Mercado MD Start:20-Feb-2023 Status:Discontinued Comments:[id number] nitroglycerin 0.4 MG Subling ual Tablet;0.4 MILLIGRAM Q5M PRN Quantity:1 Micky Mercado MD Start:20-Feb-2023 Status:Discontinued Comments:[id number] Administration Instructions:MAY GIVE Q5 MIN X 3 PRN CHEST PAIN 1 ML Sodium Chloride 9 MG/ML Prefilled Syringe;10 MILLILITER Q12HR Quantity:1 [id number] Start:20-Feb-2023 Status:Discontinued Comments:[id number] Administration Instructions:flush every shift and before after each IVmedication is administered atorvastatin 40 MG Oral Tabl et [Lipitor];40 MILLIGRAM BEDTIME Quantity:1 Micky Mercado MD Start:20-Feb-2023 Status:Discontinued Comments:[id number] aspirin 81 MG Chewable Table t;81 MILLIGRAM BEDTIME Quantity:1 Micky Mercado MD Start:20-Feb-2023 Status:Discontinued Comments:[id number] Sotalol Hydrochloride 120 MG Oral Tablet;120 MILLIGRAM BID Quantity:1 Micky Mercado MD Start:20-Feb-2023 Status:Discontinued Comments:[id number] insulin glargine-yfgn 100 UN T/ML Injectable Solution;35 UNITS BEDTIME Quantity:2 Micky Mercado MD Start:20-Feb-2023 Status:Discontinued Comments:[id number] HumaLOG;[id number] Administration Instructions:REGULAR SLIDING SCALE TRRLGYSE75-716 MG/DL, 0 BSUNL650-130 MG/DL, 1 QQVOI488-460 MG/DL, 2 UUWSN518-311 MG/DL, 3 PUXQJ343-955 MG/DL, 4 AYWBQ296-010 MG/DL, 5 UNITS>= 400, 5 UNITS ANDOBTAIN STAT BS AND CALLRESULTS TO PHYSICIAN Quantity:0 Mikcy Mercado MD Start:20-Feb-2023 Status:Discontinued Comments:[id number] Administration Instructions:REGULAR SLIDING SCALE [id number] MG/DL, 0 TOSLH086-863 MG/DL, 1 YGDLB987-209 MG/DL, 2 LVVVP098-707 MG/DL, 3 CNLVZ871-970 MG/DL, 4 FININ009-665 MG/DL, 5 UNITS>= 400, 5 UNITS ANDOBTAIN STAT BS AND CALLRESULTS TO PHYSICIAN nitroglycerin 0.4 MG Subling ual Tablet;0.4 MILLIGRAM Q5M Quantity:1 Micky Mercado MD Start:20-Feb-2023 Status:Discontinued Comments:Provider Administration Instructions:MAY GIVE Q5 MIN X 3 PRN CHEST PAIN nitroglycerin 0.4 MG Subling ual Tablet;0.4 MILLIGRAM Q1H PRN Quantity:1 Micky Mercado MD Start:20-Feb-2023 Status:Discontinued Comments:[id number] Administration Instructions:MAY GIVE Q5 MIN X 3 PRN CHEST PAIN 1 ML Sodium Chloride 9 MG/ML Prefilled Syringe;10 MILLILITER ASDIR Quantity:1 [id number] Start:20-Feb-2023 Status:Discontinued Comments:[id number] Administration Instructions:flush every shift and before after each IVmedication is administered 250 ML glucose 100 MG/ML Injection;[id number] Administration Instructions:Blood glucose <60 and unable to tolerate POBlood glucose 40 and below: Administer IV [id number] (25 gm) at wide open rateBlood glucose 41-60: Administer IV D10 125 ml(12.5 gm) at wide open rate.Updated Hypoglycemia Protocol Using D10 250ml: Quantity:0 Micky Mercado MD Start:20-Feb-2023 Status:Discontinued Comments:[id number] Administration Instructions:Blood glucose <60 and unable to tolerate POBlood glucose 40 and below: Administer IV [id number] (25 gm) at wide open rateBlood glucose 41-60: Administer IV D10 125 ml(12.5 gm) at wide open rate.Updated Hypoglycemia Protocol Using D10 250ml: glucose 4000 MG Chewable Tablet;16 GRAM ASDIR Quantity:4 iMcky Mercado MD Start:20-Feb-2023 Status:Discontinued Comments:[id number] Administration Instructions:* If patient asymptomatic, give juice and crackers and callthe physician* If patient able to swallow, give Glucose chewable gram orally as needed for blood glucose <60 orsymptomatic hypoglycemiaCHEW TABLETS THOROUGHLY BEFORE SWALLOWING tamsulosin hydrochloride 0.4 MG Oral Capsule [Flomax];0.4 MILLIGRAM BID Quantity:1 Micky Mercado MD Start:20-Feb-2023 Status:Discontinued Comments:[id number] Administration Instructions:DO NOT CRUSH, CUT OR CHEW 72 HR scopolamine 0.0139 MG/ HR Transdermal System [Transderm Scop];1 PATCH Q72H PRN Quantity:1 Micky Mercado MD Start:20-Feb-2023 Status:Discontinued Comments:Provider Administration Instructions:APPLY TO HAIRLESS AREA BEHIND THE EAR sodium chloride 9 MG/ML Injectable Solution Micky Mercado MD Start:20-Feb-2023 Status:Discontinued traMADol hydrochloride 50 MG Oral Tablet;50 MILLIGRAM Q6H PRN Quantity:1 Micky Mercado MD Start:20-Feb-2023 Status:Discontinued Comments:[id number] Morphine Sulfate 2 MG/ML Injectable Solution;2 MILLIGRAM Q4H PRN Quantity:1 Micky Mercado MD Start:20-Feb-2023 Status:Discontinued Comments:[id number] Administration Instructions:For patients not responding to oral medication (Defined aspain reassessment score of 7 or greater) or patient NPO tamsulosin hydrochloride 0.4 MG Oral Capsule [Flomax];0.4 MILLIGRAM PO PC BK Start:20-Feb-2023 Status:Discontinued Comments:0.4 MG PO PC BK cephalexin 500 MG Oral Capsule;500 MILLIGRAM PO Q12HR Start:20-Feb-2023 Status:Discontinued Comments:500 MG PO Q12HR Sotalol Hydrochloride 120 MG Oral Tablet;120 MILLIGRAM PO BID Start:20-Feb-2023 Comments:120 MG PO BID clopidogrel 75 MG Oral Table t;75 MILLIGRAM PO DAILY Start:20-Feb-2023 Status:Discontinued Comments:75 MG PO DAILY meloxicam 15 MG Oral Tablet [Mobic];15 MILLIGRAM PO DAILY Start:20-Feb-2023 Status:Discontinued Comments:15 MG PO DAILY loratadine 10 MG Oral Tablet ;10 MILLIGRAM PO DAILY Start:20-Feb-2023 Status:Discontinued Comments:10 MG PO DAILY indomethacin 75 MG Extended Release Oral Capsule;50 MILLIGRAM PO DAILY Start:20-Feb-2023 Status:Discontinued Comments:50 MG PO DAILY As Needed for Pain Scale 1-3 SLOW-MG+CA;PO BID Start:20-Feb-2023 Status:Discontinued Comments:PO BID *Med List Information;1 EACH MISC .CANCEL AT DISCHARGE Start:20-Feb-2023 Status:Discontinued Comments:1 EA MISC .CANCEL AT DISCHARGE DULoxetine 30 MG (as DULoxet ine hydrochloride 33.7 MG) Delayed Release Oral Capsule;30 MG Orally Once a day, 1 capsule Quantity:30 LISA Man Start:21-Dec-2022 Status:Inactive Comments:30 MG Orally Once a day, 1 capsule clopidogrel 75 MG Oral Table t [Plavix];75 MILLIGRAM ORAL DAILY Quantity:1 Robe Patton MD Start:25-May-2022 Status:Discontinued Comments:[id number] clopidogrel 75 MG Oral Table t;75 MILLIGRAM PO DAILY Start:25-May-2022 Status:Discontinued Comments:75 MG PO DAILY aspirin 81 MG Chewable Table t Quantity:1 Robe Patton MD Start:24-May-2022 Status:Discontinued clopidogrel 75 MG Oral Table t [Plavix] Quantity:1 Robe Patton MD Start:24-May-2022 Status:Discontinued bivalirudin 250 MG Injection [Angiomax];Provider Administration Instructions:HIGH-ALERT DRUG Quantity:1 Simone Tavera MD Start:24-May-2022 Status:Discontinued Comments:Provider Administration Instructions:HIGH-ALERT DRUG bivalirudin 250 MG Injection [Angiomax];Provider Administration Instructions:HIGH-ALERT DRUG Quantity:1 Simone Tavera MD Start:24-May-2022 Status:Discontinued Comments:Provider Administration Instructions:HIGH-ALERT DRUG phenylephrine hydrochloride 10 MG/ML Injectable Solution Quantity:1 Simone Tavera MD Start:24-May-2022 Status:Discontinued midazolam 1 MG/ML Injectable Solution Quantity:1 Simone Tavera MD Start:24-May-2022 2 ML fentaNYL 0.05 MG/ML Injection Quantity:1 Simone Tavera MD Start:24-May-2022 Status:Discontinued Heparin sodium 2 UNT/ML Injectable Solution Quantity:1 Simone Tavera MD Start:24-May-2022 Status:Discontinued lidocaine hydrochloride 20 M G/ML Injectable Solution Quantity:1 Simone Tavera MD Start:24-May-2022 Status:Discontinued Verapamil hydrochloride 2.5 MG/ML Injectable Solution Quantity:1 Simone Tavera MD Start:24-May-2022 Heparin sodium 1000 UNT/ML Injectable Solution Quantity:1 Simone Tavera MD Start:24-May-2022 Status:Discontinued 250 ML nitroglycerin 0.1 MG/ ML Injection Quantity:1 Simone Tavera MD Start:24-May-2022 Status:Discontinued Sotalol Hydrochloride 80 MG Oral Tablet;120 MILLIGRAM ORAL BID Quantity:2 Simone Tavera MD Start:23-May-2022 Status:Discontinued Comments:[id number] zolpidem tartrate 5 MG Oral Tablet;5 MILLIGRAM ORAL BEDTIME PRN Quantity:1 Simone Tavera MD Start:23-May-2022 Status:Discontinued Comments:[id number] loratadine 10 MG Oral Tablet ;10 MILLIGRAM ORAL DAILY Quantity:1 Simone Tavera MD Start:23-May-2022 Status:Discontinued Comments:[id number] amLODIPine 5 MG Oral Tablet [Norvasc];5 MILLIGRAM ORAL DAILY Quantity:1 Simone Tavera MD Start:23-May-2022 Status:Discontinued Comments:[id number] losartan potassium 25 MG Ora l Tablet [Cozaar];50 MILLIGRAM ORAL DAILY Quantity:2 Simone Tavera MD Start:23-May-2022 Status:Discontinued Comments:[id number] sodium chloride 9 MG/ML Injectable Solution;[id number] Administration Instructions:INFUSE AT 3.5 ML/KG/HR (MAX 385ML/HR) X 1 HOUR,START INFUSION ON THE DAY OF THE PROCEDURE(CLINICAL RESOURCE MANAGER/PCI PROCEDURE).AFTER 1 HOUR, DECREASE INFUSION TO 1.18 ML/KG/HR(MAX 130 ML/HR). Robe Patton MD Start:23-May-2022 Status:Discontinued Comments:[id number] Administration Instructions:INFUSE AT 3.5 ML/KG/HR (MAX 385ML/HR) X 1 HOUR,START INFUSION ON THE DAY OF THE PROCEDURE(CLINICAL RESOURCE MANAGER/PCI PROCEDURE).AFTER 1 HOUR, DECREASE INFUSION TO 1.18 ML/KG/HR(MAX 130 ML/HR). insulin, regular, human 100 UNT/ML Injectable Solution [HumuLIN R];[id number] Administration Instructions:REGULAR SLIDING SCALE [id number] MG/DL, 0 ZZDPC923-623 MG/DL, 1 VXBXS639-181 MG/DL, 2 QDIMA028-305 MG/DL, 3 PBPOW481-835 MG/DL, 4 ZFCSB743-568 MG/DL, 5 UNITS>= 400, 5 UNITS ANDOBTAIN STAT BS AND CALLRESULTS TO PHYSICIANGlucose level <= 60* If patient asymptomatic, give juice and crackers and callthe physician* If patient symptomatic, call physician and give either ofthe followin) If patient able to swallow, give Glucose chewable tablets Quantity:0 Simone Tavera MD Start:22-May-2022 Status:Discontinued Comments:[id number] Administration Instructions:REGULAR SLIDING SCALE KQZPDAZN21-337 MG/DL, 0 HHKVC419-650 MG/DL, 1 PQGZJ240-225 MG/DL, 2 FYVAF575-516 MG/DL, 3 SAMXN900-254 MG/DL, 4 XYPJV881-607 MG/DL, 5 UNITS>= 400, 5 UNITS ANDOBTAIN STAT BS AND CALLRESULTS TO PHYSICIANGlucose level <= 60* If patient asymptomatic, give juice and crackers and callthe physician* If patient symptomatic, call physician and give either ofthe followin) If patient able to swallow, give Glucose chewable tablets Sotalol Hydrochloride 80 MG Oral Tablet;80 MILLIGRAM ORAL BID Quantity:1 Simone Tavera MD Start:22-May-2022 Status:Discontinued Comments:[id number] gabapentin 300 MG Oral Capsu le [Neurontin];300 MILLIGRAM ORAL BID Quantity:1 Simone Tavera MD Start:22-May-2022 Status:Discontinued Comments:[id number] aspirin 81 MG Chewable Table t;81 MILLIGRAM ORAL BEDTIME Quantity:1 Simone Tavera MD Start:22-May-2022 Status:Discontinued Comments:[id number] atorvastatin 40 MG Oral Tabl et [Lipitor];40 MILLIGRAM ORAL BEDTIME Quantity:1 Simone Tavera MD Start:22-May-2022 Status:Discontinued Comments:[id number] 1 ML Sodium Chloride 9 MG/ML Prefilled Syringe;10 MILLILITER INTRAVEN. Q12HR Quantity:1 GRACH99 Start:22-May-2022 Status:Discontinued Comments:[id number] Administration Instructions:flush every shift and before after each IVmedication is administered prednisolone 10 MG/ML Ophtha lmic Suspension;1 DROP RIGHT EYE QID Quantity:1 Simone Tavera MD Start:22-May-2022 Status:Discontinued Comments:[id number] insulin glargine-yfgn 100 UN T/ML Injectable Solution;35 UNITS SUBCUTANEOUS BEDTIME Quantity:2 Simone Tavera MD Start:22-May-2022 Status:Discontinued Comments:[id number] glucagon (rDNA) 1 MG Injecti on [GlucaGen];1 MILLIGRAM INTRAMUSC ASDIR Quantity:1 Simone Tavera MD Start:22-May-2022 Status:Discontinued Comments:[id number] Administration Instructions:If paitent unable to swallow and NO IV access; giveglucagon injection 1mg IM as needed for blood glucose <60 orsymptomatic hypoglycemia. 50 ML glucose 500 MG/ML Pref illed Syringe;[id number] Administration Instructions:* blood sugar 60-69 mg/dl- hold insulinand administer 15 mL (7.5 grams);* Blood sugar 50-59 mg/dl- hold insulinand administer 20 mL (10 grams);* Blood sugar 30-49 mg/dl- hold insulin andadminister 25 mL (12.5 grams);* Blood sugar < 30 mg/dl- hold insulin andadminister 30 mL (15 grams) recheck in 15minutes and notify physician for furtherinstructionIf patient unable to swallow and has IV access* blood sugar 60-69 mg/dl- hold insulin Quantity:0 Simone Tavera MD Start:22-May-2022 Status:Discontinued Comments:[id number] Administration Instructions:* blood sugar 60-69 mg/dl- hold insulinand administer 15 mL (7.5 grams);* Blood sugar 50-59 mg/dl- hold insulinand administer 20 mL (10 grams);* Blood sugar 30-49 mg/dl- hold insulin andadminister 25 mL (12.5 grams);* Blood sugar < 30 mg/dl- hold insulin andadminister 30 mL (15 grams) recheck in 15minutes and notify physician for furtherinstructionIf patient unable to swallow and has IV access* blood sugar 60-69 mg/dl- hold insulin glucose 4000 MG Chewable Tablet;16 GRAM ORAL ASDIR Quantity:4 Simone Tavera MD Start:22-May-2022 Status:Discontinued Comments:[id number] Administration Instructions:* If patient asymptomatic, give juice and crackers and callthe physician* If patient able to swallow, give Glucose chewable zuveudu97 gram orally as needed for blood glucose <60 orsymptomatic hypoglycemiaCHEW TABLETS THOROUGHLY BEFORE SWALLOWING albuterol 0.83 MG/ML Inhalat ion Solution;2.5 MILLIGRAM INHALATION RTQ6H PRN Quantity:1 Simone Tavera MD Start:22-May-2022 Status:Discontinued Comments:[id number] acetaminophen 325 MG Oral Tablet;650 MILLIGRAM ORAL Q6H PRN Quantity:2 Simone Tavera MD Start:22-May-2022 Status:Discontinued Comments:[id number] Administration Instructions:MAXIMUM DAILY DOSE OF ACETAMINOPHEN = 4000 MG ondansetron 2 MG/ML Injectab le Solution [Zofran];4 MILLIGRAM INTRAVEN. Q6H PRN Quantity:1 Simone Tavera MD Start:22-May-2022 Status:Discontinued Comments:[id number] Administration Instructions:4 MG dose may be given IV push over 2 MINUTESDoses > 4 mg: Use 50 mL D5W or 0.9% NaCl infuse over 15 minutes nitroglycerin 0.4 MG Subling ual Tablet;0.4 MILLIGRAM SUBLINGUAL Q5M PRN Quantity:1 Simone Tavera MD Start:22-May-2022 Status:Discontinued Comments:[id number] Administration Instructions:x 3 doses hold for SBP less than 90 mm Hg 1 ML morphine sulfate 4 MG/M L Prefilled Syringe;4 MILLIGRAM INTRAVEN. Q15M PRN Quantity:1 Simone Tavera MD Start:22-May-2022 Status:Discontinued Comments:[id number] Administration Instructions:4 mg IV x 3, 15 minutes apart for chest pain (pain scale4-7). Total dose NOT to exceed 12 mg in 1 hour (ProvidingSBP > 100, HR > 50, Resp > 14). If pain reoccurs or isunrelieved notify physician afer 2 doses.IF PATIENT IS TAKING ORAL, PLEASE CALL PHARMACY. Morphine Sulfate 2 MG/ML Injectable Solution;2 MILLIGRAM INTRAVEN. Q15M PRN Quantity:1 Simone Tavera MD Start:22-May-2022 Status:Discontinued Comments:[id number] Administration Instructions:IF PATIENT IS TAKING ORAL, PLEASE CALL PHARMACY.2 mg IV x 4, 15 minutes apart for chest pain (pain scale1-3). Total dose NOT to exceed 8 mg in 1 hour (ProvidingSBP > 100, HR > 50, Resp > 14) 1 ML Sodium Chloride 9 MG/ML Prefilled Syringe;10 MILLILITER INTRAVEN. ASDIR Quantity:1 GRACH99 Start:22-May-2022 Status:Discontinued Comments:[id number] Administration Instructions:flush every shift and before after each IVmedication is administered sildenafil 100 MG Oral Table t;100 MILLIGRAM PO DAILY PRN Start:22-May-2022 Status:Discontinued Comments:100 MG PO DAILY PRN As Needed for ED GREEN LIP MUSSEL;1 CAPSULE P O BID Start:22-May-2022 Status:Discontinued Comments:1 CAP PO BID ASHWAGANDA;1 CAPSULE PO BID Start:22-May-2022 Status:Discontinued Comments:1 CAP PO BID MULTIVITAMIN;1 TABLET PO KYRIE LY Start:22-May-2022 Comments:1 TAB PO DAILY indomethacin 50 MG Oral Capsule;50 MILLIGRAM PO TID Start:22-May-2022 Status:Discontinued Comments:50 MG PO TID As Needed for CINNAMON;500 MILLIGRAM PO BI D Start:22-May-2022 Status:Discontinued Comments:500 MG PO BID magnesium chloride 535 MG De layed Release Oral Tablet;64 MILLIGRAM PO BID Start:22-May-2022 Comments:64 MG PO BID telmisartan 20 MG Oral Table t [Micardis];20 MILLIGRAM PO DAILY Start:22-May-2022 Status:Discontinued Comments:20 MG PO DAILY loratadine 10 MG Oral Tablet ;10 MILLIGRAM PO DAILY Start:22-May-2022 Status:Discontinued Comments:10 MG PO DAILY Ozempic;1 MILLIGRAM SUBCUTAN EOUS Welsh Start:22-May-2022 Comments:1 MG SUBQ Welsh 3 ML insulin glargine 100 UN T/ML Pen Injector [Lantus];35 UNIT SUBCUTANEOUS BEDTIME Start:22-May-2022 Comments:35 UNIT SUBQ BEDTIME prednisolone 10 MG/ML Ophtha lmic Suspension [Omnipred];1 DROP RIGHT EYE QID Start:22-May-2022 Status:Discontinued Comments:1 DROP RIGHT EYE QID *Med List Information;1 EACH MISC .CANCEL AT DISCHARGE Start:22-May-2022 Status:Discontinued Comments:1 EA MISC .CANCEL AT DISCHARGE Insulin Glargine 100 UNT/ML Injectable Solution [Lantus];100 UNIT/ML Subcutaneous , as directed LISA Man Start:31-Mar-2022 Status:Inactive Comments:100 UNIT/ML Subcutaneous , as directed predniSONE 50 MG Oral Tablet ;50 MG Orally Once a day, 1 tablet Quantity:5 LISA Man Start:15-Nov-2021 Status:Inactive Comments:50 MG Orally Once a day, 1 tablet Paxlovid;20 x 150 MG & 10 x 100MG Orally BID, as directed Quantity:30 LISA Man Start:02-Nov-2021 Status:Inactive Comments:20 x 150 MG & 10 x 100MG Orally BID, as directed buPROPion hydrochloride XL 1 50 MG 24 HR Extended Release Oral Tablet;150 MG Orally Once a day, 1 tablet in the morning Quantity:30 LISA Man Start:13-Sep-2021 Status:Inactive Comments:150 MG Orally Once a day, 1 tablet in the morning PARoxetine 10 MG (as PARoxet ine hydrochloride 11.38 MG) Oral Tablet;10 MG Orally Once a day, 1 tablet before bed time LISA Man Start:18-Aug-2021 Status:Inactive Comments:10 MG Orally Once a day, 1 tablet before bed time 5 ML phenylephrine hydrochlo ride 0.1 MG/ML Injection [Biorphen] Quantity:1 Simone Tavera MD Start:22-Jul-2021 Status:Discontinued 200 ML ciprofloxacin 2 MG/ML Injection Quantity:1 Satinder Dianna Russo Start:22-Jul-2021 Status:Discontinued 2 ML fentaNYL 0.05 MG/ML Injection Quantity:1 Simone Tavera MD Start:22-Jul-2021 Status:Discontinued Propofol 10 MG/ML Injectable Suspension [Diprivan] Quantity:1 Simone Tavera MD Start:22-Jul-2021 lidocaine hydrochloride 20 M G/ML Injectable Solution Quantity:1 Simone Tavera MD Start:22-Jul-2021 Status:Discontinued THERAPEUTIC VIT/MIN_THEROT10 34;1 TABLET ORAL DAILY Quantity:1 Alpesh Mercado MD Start:22-Jul-2021 Status:Discontinued Comments:[id number] amLODIPine 5 MG Oral Tablet [Norvasc];5 MILLIGRAM ORAL DAILY Quantity:1 Alpesh Mercado MD Start:22-Jul-2021 Status:Discontinued Comments:[id number] tamsulosin hydrochloride 0.4 MG Oral Capsule [Flomax];0.4 MILLIGRAM ORAL PC BK Quantity:1 Alpesh Mercado MD Start:22-Jul-2021 Status:Discontinued Comments:[id number] Administration Instructions:DO NOT CRUSH, CUT OR CHEW cefdinir 300 MG Oral Capsule ;300 MILLIGRAM PO Q12HR Start:22-Jul-2021 Status:Discontinued Comments:300 MG PO Q12HR HumaLOG;[id number] Administration Instructions:REGULAR SLIDING SCALE MCMHDANQ59-225 MG/DL, 0 QBNWJ151-158 MG/DL, 1 AKSNF091-831 MG/DL, 2 QGRQL610-340 MG/DL, 3 OCDUM881-123 MG/DL, 4 CYGTW940-099 MG/DL, 5 UNITS>= 400, 5 UNITS ANDOBTAIN STAT BS AND CALLRESULTS TO PHYSICIANGlucose level <= 60* If patient asymptomatic, give juice and crackers and callthe physician* If patient symptomatic, call physician and give either ofthe followin) If patient able to swallow, give Glucose chewable tablet Quantity:0 Alpesh Mercado MD Start:21-Jul-2021 Status:Discontinued Comments:[id number] Administration Instructions:REGULAR SLIDING SCALE FQEATHUJ55-288 MG/DL, 0 FZDYP377-086 MG/DL, 1 VIXEC119-547 MG/DL, 2 MHNDX350-356 MG/DL, 3 KZPJS225-811 MG/DL, 4 IBESQ155-802 MG/DL, 5 UNITS>= 400, 5 UNITS ANDOBTAIN STAT BS AND CALLRESULTS TO PHYSICIANGlucose level <= 60* If patient asymptomatic, give juice and crackers and callthe physician* If patient symptomatic, call physician and give either ofthe followin) If patient able to swallow, give Glucose chewable tablet insulin glargine-yfgn 100 UN T/ML Injectable Solution;20 UNITS SUBCUTANEOUS BEDTIME Quantity:1 Alpesh Mercado MD Start:21-Jul-2021 Status:Discontinued Comments:[id number] Sotalol Hydrochloride 80 MG Oral Tablet;80 MILLIGRAM ORAL BID Quantity:1 Alpesh Mercado MD Start:21-Jul-2021 Status:Discontinued Comments:[id number] gabapentin 300 MG Oral Capsu le [Neurontin];300 MILLIGRAM ORAL BID Quantity:1 Alpesh Mercado MD Start:21-Jul-2021 Status:Discontinued Comments:[id number] aspirin 81 MG Chewable Table t;81 MILLIGRAM ORAL BEDTIME Quantity:1 Alpesh Mercado MD Start:21-Jul-2021 Status:Discontinued Comments:[id number] atorvastatin 40 MG Oral Tabl et [Lipitor];40 MILLIGRAM ORAL BEDTIME Quantity:1 Alpesh Mercado MD Start:21-Jul-2021 Status:Discontinued Comments:[id number] albuterol 0.83 MG/ML Inhalat ion Solution;2.5 MILLIGRAM INHALATION RTQ6H PRN Quantity:1 Alpesh Mercado MD Start:21-Jul-2021 Status:Discontinued Comments:[id number] Administration Instructions:Patient Specific InhalerDO NOT return the MDI canister to a shared space,such as a patient-specific bin in a medication room.The MDI should remain in the immediate patientvicinity to limit the spread of potential infection*ADMINISTERED BY RESPIRATORY THERAPY OR NURSESEE RESPIRATORY TREATMENT RECORD OR MAR*AEROSOL WASTE* PLEASE DISPOSE OF PRESSURIZEDCANS IN APPROPRIATE CONTAINERS(Including Empty Containers) nitroglycerin 0.4 MG Subling ual Tablet;0.4 MILLIGRAM SUBLINGUAL Q1H PRN Quantity:1 Alpesh Mercado MD Start:21-Jul-2021 Status:Discontinued Comments:[id number] Administration Instructions:MAY GIVE Q5 MIN X 3 PRN CHEST PAIN zolpidem tartrate 5 MG Oral Tablet;5 MILLIGRAM ORAL BEDTIME PRN Quantity:1 Alpesh Mercado MD Start:21-Jul-2021 Status:Discontinued Comments:[id number] Administration Instructions:Formulary Interchange for:AMBIEN CR 6.25 ondansetron 4 MG Disintegrat ing Oral Tablet;4 MILLIGRAM SUBLINGUAL Q4H PRN Quantity:1 Alpesh Mercado MD Start:21-Jul-2021 Status:Discontinued Comments:[id number] Administration Instructions:* Place tablet on the tongue; it will dissolve in seconds.* Once dissolved, the patient may swallow with saliva.* DO NOT attempt to push ODT tablets through foil backing.* With dry hands, peel back the foil of 1 blister andremove the tablet.* Wash hands after administration.MAX: ADULT 24 MG/DAY, ADOLESCENTS 16 MG/DAY 1 ML HYDROmorphone hydrochlo ride 1 MG/ML Prefilled Syringe;1 MILLIGRAM INTRAVEN. Q4H PRN Quantity:1 Alpesh Mercado MD Start:21-Jul-2021 Status:Discontinued Comments:[id number] Administration Instructions:IF PATIENT IS TAKING ORAL, PLEASE CALL PHARMACY. acetaminophen 325 MG / oxyCO DONE hydrochloride 10 MG Oral Tablet;1 TABLET ORAL Q6H PRN Quantity:1 Alpesh Mercado MD Start:21-Jul-2021 Status:Discontinued Comments:[id number] acetaminophen 325 MG Oral Tablet;650 MILLIGRAM ORAL Q4H PRN Quantity:2 Alpesh Mercado MD Start:21-Jul-2021 Status:Discontinued Comments:[id number] Administration Instructions:MAXIMUM DAILY DOSE OF ACETAMINOPHEN = 4000 MG traMADol hydrochloride 50 MG Oral Tablet;50 MILLIGRAM ORAL Q4H PRN Quantity:1 Alpesh Mercado MD Start:21-Jul-2021 Status:Discontinued Comments:[id number] glucagon (rDNA) 1 MG Injecti on [GlucaGen];1 MILLIGRAM INTRAMUSC ASDIR Quantity:1 Alpesh Mercado MD Start:21-Jul-2021 Status:Discontinued Comments:[id number] Administration Instructions:If paitent unable to swallow and NO IV access; giveglucagon injection 1mg IM as needed for blood glucose <60 orsymptomatic hypoglycemia. 50 ML glucose 500 MG/ML Pref illed Syringe;[id number] Administration Instructions:If patient unable to swallow and has IVaccess, give Dextrose 50% injection; for bloodsugar 60-69 mg/dl- hold insulin products andadminister 15 mL (7.5 grams); for blood erejt09-28 mg/dl- hold insulin products andadminister 20 mL (10 grams); for blood untbh58-97 mg/dl- hold insulin products andadminister 25 mL (12.5 grams); for blood sugar< 30 mg/dl- hold insulin products andadminister 30 mL (15 grams) recheck in 15 Quantity:0 Alpesh Mercado MD Start:21-Jul-2021 Status:Discontinued Comments:[id number] Administration Instructions:If patient unable to swallow and has IVaccess, give Dextrose 50% injection; for bloodsugar 60-69 mg/dl- hold insulin products andadminister 15 mL (7.5 grams); for blood ddhba01-36 mg/dl- hold insulin products andadminister 20 mL (10 grams); for blood -71 mg/dl- hold insulin products andadminister 25 mL (12.5 grams); for blood sugar< 30 mg/dl- hold insulin products andadminister 30 mL (15 grams) recheck in 15 glucose 4000 MG Chewable Tablet;16 GRAM ORAL ASDIR Quantity:4 Alpesh Mercado MD Start:21-Jul-2021 Status:Discontinued Comments:[id number] Administration Instructions:* If patient asymptomatic, give juice and crackers and callthe physician* If patient able to swallow, give Glucose chewable hnwifef73 gram orally as needed for blood glucose <60 orsymptomatic hypoglycemiaCHEW TABLETS THOROUGHLY BEFORE SWALLOWING SPECIAL INSTRUCTION_SP;[id number] Administration Instructions:NEED ALLERGIES TO PROCESS ORDERS Quantity:0 Laurie Patton MD Start:21-Jul-2021 Status:Discontinued Comments:[id number] Administration Instructions:NEED ALLERGIES TO PROCESS ORDERS calcium chloride 0.2 MG/ML / potassium chloride 0.3 MG/ML / sodium chloride 6 MG/ML / sodium lactate 3.1 MG/ML Injectable Solution;Provider Administration Instructions:* PACU order, D/C after transfer * Coplin Blaze T DO Start:21-Jul-2021 Status:Discontinued Comments:Provider Administration Instructions:* PACU order, D/C after transfer * sodium chloride 9 MG/ML Injectable Solution Jojo Paven F1 DO Start:21-Jul-2021 Status:Discontinued Zolpidem tartrate 6.25 MG Extended Release Oral Tablet;6.25 MG , TAKE ONE TABLET BY MOUTH ONE TIME DAILY AT BEDTIME NEEDED Quantity:30 LISA HOLDEN N Start:13-Jul-2021 Status:Inactive Comments:6.25 MG , TAKE ONE TABLET BY MOUTH ONE TIME DAILY AT BEDTIME NEEDED 0.4 ML enoxaparin sodium 100 MG/ML Prefilled Syringe [Lovenox];40 MILLIGRAM SUBCUTANEOUS DAILY@0600 Quantity:1 Jonathan Mercado MD Start:24-Jun-2021 Status:Discontinued Comments:[id number] Administration Instructions:DO NOT EXPEL AIR OUT OF SYRINGEGIVE SQ WHEN PT IS LYING DOWN. amLODIPine 5 MG Oral Tablet; 5 MILLIGRAM PO DAILY Start:24-Jun-2021 Status:Discontinued Comments:5 MG PO DAILY ciprofloxacin 500 MG Oral Tablet;500 MILLIGRAM PO BID Start:24-Jun-2021 Status:Discontinued Comments:500 MG PO BID melatonin 3 MG Oral Tablet;6 MILLIGRAM ORAL BEDTIME PRN Quantity:2 Yocasta Sunshine R3 DO Start:23-Jun-2021 Status:Discontinued Comments:[id number] acetaminophen 325 MG Oral Tablet;650 MILLIGRAM ORAL Q6H PRN Quantity:2 Rust Jong R3 DO Start:23-Jun-2021 Status:Discontinued Comments:[id number] Administration Instructions:MAXIMUM DAILY DOSE OF ACETAMINOPHEN = 4000 MG atorvastatin 40 MG Oral Tabl et [Lipitor];40 MILLIGRAM ORAL BEDTIME Quantity:1 Jonathan Mercado MD Start:23-Jun-2021 Status:Discontinued Comments:[id number] calcium chloride 0.2 MG/ML / potassium chloride 0.3 MG/ML / sodium chloride 6 MG/ML / sodium lactate 3.1 MG/ML Injectable Solution;Provider Administration Instructions:* PACU order, D/C after transfer * Madison Yi MD Start:23-Jun-2021 Status:Discontinued Comments:Provider Administration Instructions:* PACU order, D/C after transfer * 5 ML phenylephrine hydrochlo ride 0.1 MG/ML Injection [Biorphen] Quantity:1 Yumiko Vinson MD Start:23-Jun-2021 HumaLOG;[id number] Administration Instructions:REGULAR SLIDING SCALE THNLMSFF96-524 MG/DL, 0 AGURH932-854 MG/DL, 1 VEQIY213-979 MG/DL, 2 ZOAZY195-829 MG/DL, 3 QYMRQ959-445 MG/DL, 4 TOGJI595-110 MG/DL, 5 UNITS>= 400, 5 UNITS ANDOBTAIN STAT BS AND CALLRESULTS TO PHYSICIANGlucose level <= 60* If patient asymptomatic, give juice and crackers and callthe physician* If patient symptomatic, call physician and give either ofthe followin) If patient able to swallow, give Glucose chewable tablet Quantity:0 Kim Mercado MD Start:23-Jun-2021 Status:Discontinued Comments:[id number] Administration Instructions:REGULAR SLIDING SCALE BVMBTYQL81-005 MG/DL, 0 JBKOL769-387 MG/DL, 1 PTOAV006-007 MG/DL, 2 PPPFP330-930 MG/DL, 3 XUWXH416-483 MG/DL, 4 BFFMM073-201 MG/DL, 5 UNITS>= 400, 5 UNITS ANDOBTAIN STAT BS AND CALLRESULTS TO PHYSICIANGlucose level <= 60* If patient asymptomatic, give juice and crackers and callthe physician* If patient symptomatic, call physician and give either ofthe followin) If patient able to swallow, give Glucose chewable tablet Propofol 10 MG/ML Injectable Suspension [Diprivan] Quantity:1 Yumiko Vinson MD Start:23-Jun-2021 Status:Discontinued lidocaine hydrochloride 20 M G/ML Injectable Solution Quantity:1 Yumiko Vinson MD Start:23-Jun-2021 Status:Discontinued midazolam 1 MG/ML Injectable Solution Quantity:1 Yumiko Vinson MD Start:23-Jun-2021 ondansetron 2 MG/ML Injectab le Solution [Zofran];Provider Administration Instructions:4 MG dose may be given IV push over 2 MINUTESDoses > 4 mg: Use 50 mL D5W or 0.9% NaCl infuse over 15 minutes Quantity:1 Yumiko Vinson MD Start:23-Jun-2021 Comments:Provider Administration Instructions:4 MG dose may be given IV push over 2 MINUTESDoses > 4 mg: Use 50 mL D5W or 0.9% NaCl infuse over 15 minutes 2 ML fentaNYL 0.05 MG/ML Injection Quantity:1 Yumiko Vinson MD Start:23-Jun-2021 50 ML glucose 500 MG/ML Pref illed Syringe;[id number] Administration Instructions:If patient unable to swallow and has IVaccess, give Dextrose 50% injection; for bloodsugar 60-69 mg/dl- hold insulin products andadminister 15 mL (7.5 grams); for blood uqnhw89-41 mg/dl- hold insulin products andadminister 20 mL (10 grams); for blood fzpew42-10 mg/dl- hold insulin products andadminister 25 mL (12.5 grams); for blood sugar< 30 mg/dl- hold insulin products andadminister 30 mL (15 grams) recheck in 15 Quantity:0 Kim Mercado MD Start:23-Jun-2021 Status:Discontinued Comments:[id number] Administration Instructions:If patient unable to swallow and has IVaccess, give Dextrose 50% injection; for bloodsugar 60-69 mg/dl- hold insulin products andadminister 15 mL (7.5 grams); for blood rcppo47-13 mg/dl- hold insulin products andadminister 20 mL (10 grams); for blood yizjz95-16 mg/dl- hold insulin products andadminister 25 mL (12.5 grams); for blood sugar< 30 mg/dl- hold insulin products andadminister 30 mL (15 grams) recheck in 15 glucose 4000 MG Chewable Tablet;16 GRAM ORAL ASDIR Quantity:4 Kim Mercado MD Start:23-Jun-2021 Status:Discontinued Comments:[id number] Administration Instructions:* If patient asymptomatic, give juice and crackers and callthe physician* If patient able to swallow, give Glucose chewable zhusuce01 gram orally as needed for blood glucose <60 orsymptomatic hypoglycemiaCHEW TABLETS THOROUGHLY BEFORE SWALLOWING [id number] ACTUAT albutero l 0.09 MG/ACTUAT Metered Dose Inhaler [Ventolin];2 PUFF INHALATION RTQ4H PRN Quantity:1 Jonathan Mercado MD Start:23-Jun-2021 Status:Discontinued Comments:[id number] Administration Instructions:Patient Specific InhalerDO NOT return the MDI canister to a shared space, suchas a patient-specific bin in a medication room. The MDIshould remain in the immediate patient vicinity tolimit the spread of potential infection*ADMINISTERED BY RESPIRATORY THERAPY OR NURSESEE RESPIRATORY TREATMENT RECORD OR MAR*AEROSOL WASTE* PLEASE DISPOSE OF PRESSURIZEDCANS IN APPROPRIATE CONTAINERS(Including Empty Containers) Sotalol Hydrochloride 80 MG Oral Tablet;80 MILLIGRAM ORAL DAILY Quantity:1 Jonathan Mercado MD Start:23-Jun-2021 Status:Discontinued Comments:[id number] Administration Instructions:Home dose = Sotalol 80 mg BIDOkay to dose once daily per Dr. Alvarez for INESSA 06/23 gabapentin 300 MG Oral Capsu le [Neurontin];300 MILLIGRAM ORAL BID Quantity:1 Jonathan Mercado MD Start:23-Jun-2021 Status:Discontinued Comments:[id number] LOSARTAN POTASSIUM 50 MG TABLET_LOSA50TA;50 MILLIGRAM ORAL DAILY Quantity:1 Jonathan Mercado MD Start:23-Jun-2021 Status:Discontinued Comments:[id number] Administration Instructions:AUTO SUB FOR TELMISARTAN 20 MG tamsulosin hydrochloride 0.4 MG Oral Capsule [Flomax];0.4 MILLIGRAM ORAL PC BK Quantity:1 Jonathan Mercado MD Start:23-Jun-2021 Status:Discontinued Comments:[id number] Administration Instructions:DO NOT CRUSH, CUT OR CHEW 1 ML Sodium Chloride 9 MG/ML Prefilled Syringe;10 MILLILITER INTRAVEN. Q12HR Quantity:1 Farzaneh Daniel DO Start:23-Jun-2021 Status:Discontinued Comments:[id number] Administration Instructions:flush every shift and before after each IVmedication is administered 1 ML hydrALAZINE hydrochlori de 20 MG/ML Injection;10 MILLIGRAM INTRAVEN. Q6H PRN Quantity:1 Kim Mercado MD Start:23-Jun-2021 Status:Discontinued Comments:[id number] Administration Instructions: antihypertensive equiv. to Apresoline < >< >< >Caution, Look Alike Sound Alike< >< >< > Morphine Sulfate 2 MG/ML Injectable Solution;2 MILLIGRAM INTRAVEN. Q4H PRN Quantity:1 Kim Mercado MD Start:23-Jun-2021 Status:Discontinued Comments:[id number] Administration Instructions:IF PATIENT IS TAKING ORAL, PLEASE CALL PHARMACY. albuterol 0.83 MG/ML Inhalat ion Solution;2.5 MILLIGRAM INHALATION RTQ6H PRN Quantity:1 Jonathan Mercado MD Start:23-Jun-2021 Status:Discontinued Comments:[id number] 1 ML Sodium Chloride 9 MG/ML Prefilled Syringe;10 MILLILITER INTRAVEN. ASDIR Quantity:1 Farzaneh Daniel DO Start:23-Jun-2021 Status:Discontinued Comments:[id number] Administration Instructions:flush every shift and before after each IVmedication is administered ondansetron 2 MG/ML Injectab le Solution [Zofran];4 MILLIGRAM INTRAVEN. Q8H PRN Quantity:1 Jonathan Mercado MD Start:23-Jun-2021 Status:Discontinued Comments:[id number] Administration Instructions:4 MG dose may be given IV push over 2 MINUTESDoses > 4 mg: Use 50 mL D5W or 0.9% NaCl infuse over 15 minutes ondansetron 4 MG Disintegrat ing Oral Tablet;4 MILLIGRAM ORAL Q8H PRN Quantity:1 Jonathan Mercado MD Start:23-Jun-2021 Status:Discontinued Comments:[id number] Administration Instructions:* Place tablet on the tongue; it will dissolve in seconds.* Once dissolved, the patient may swallow with saliva.* DO NOT attempt to push ODT tablets through foil backing.* With dry hands, peel back the foil of 1 blister andremove the tablet.* Wash hands after administration.MAX: ADULT 24 MG/DAY, ADOLESCENTS 16 MG/DAY sodium chloride 9 MG/ML Injectable Solution Jonathan Mercado MD Start:23-Jun-2021 Status:Discontinued zolpidem tartrate 6.25 MG Extended Release Oral Tablet;6.25 MILLIGRAM PO BEDTIME PRN Start:23-Jun-2021 Status:Discontinued Comments:6.25 MG PO BEDTIME PRN As Needed for SLEEP metFORMIN hydrochloride 1000 MG Oral Tablet;1000 MILLIGRAM PO BID MEALS Start:23-Jun-2021 Status:Discontinued Comments:1000 MG PO BID MEALS tamsulosin hydrochloride 0.4 MG Oral Capsule [Flomax];0.4 MILLIGRAM PO PC BK Start:23-Jun-2021 Status:Discontinued Comments:0.4 MG PO PC BK traMADol hydrochloride 50 MG Oral Tablet [Ultram];50 MILLIGRAM PO DAILY Start:23-Jun-2021 Status:Discontinued Comments:50 MG PO DAILY As Needed for PAIN 7-10 Ozempic;1 MILLIGRAM SUBCUTAN EOUS Mo Start:23-Jun-2021 Status:Discontinued Comments:1 MG SUBQ Mo *Med List Information;1 EACH MISC .CANCEL AT DISCHARGE Start:23-Jun-2021 Status:Discontinued Comments:1 EA MISC .CANCEL AT DISCHARGE OneTouch Maris Danielson Fine ;- In Vitro three times a day Dx E11.9, Use to test glucose Quantity:300 LISA JOSUEY N Start:21-Jun-2021 Status:Inactive Comments:- In Vitro three times a day Dx E11.9, Use to test glucose OneTouch Verio;- In Vitro Th ree times a day. Dx E11.9, Use to test blood sugar Quantity:300 LISA PACHECOFANY N Start:21-Jun-2021 Status:Inactive Comments:- In Vitro Three times a day. Dx E11.9, Use to test blood sugar traMADol hydrochloride 50 MG Oral Tablet;50 MG Orally Once a day, 1 tablet as needed Quantity:7 LISA NAVIN N Start:09-Jun-2021 Status:Inactive Comments:50 MG Orally Once a day, 1 tablet as needed labetalol hydrochloride 5 MG /ML Injectable Solution;5 MILLIGRAM INTRAVEN. Q5M PRN Quantity:1 Ria Dawson DO Start:21-Jun-2020 Status:Discontinued Comments:[id number] Administration Instructions:(use if pulse greater than 60) for SBP greater than 180 orDBP greater than 100 for 2 doses and notify provider [id number] dose* PACU order, D/C after transfer * 1 ML hydrALAZINE hydrochlori de 20 MG/ML Injection;5 MILLIGRAM INTRAVEN. Q10M PRN Quantity:1 Ria Dawson DO Start:21-Jun-2020 Status:Discontinued Comments:[id number] Administration Instructions:* PACU * for SBP greater than 180 or DBP greaterthan 100 for 2 doses and notify providerafter 2nd dose Metoclopramide 5 MG/ML Injec table Solution [Reglan] Quantity:1 Ria Dawson DO Start:21-Jun-2020 Status:Discontinued Dexamethasone 4 MG/ML Inject able Solution Quantity:1 Ria Dawson DO Start:21-Jun-2020 Status:Discontinued ondansetron 2 MG/ML Injectab le Solution [Zofran];Provider Administration Instructions:4 MG dose may be given IV push over 2 MINUTESDoses > 4 mg: Use 50 mL D5W or 0.9% NaCl infuse over 15 minutes Quantity:1 Ria Dawson DO Start:21-Jun-2020 Status:Discontinued Comments:Provider Administration Instructions:4 MG dose may be given IV push over 2 MINUTESDoses > 4 mg: Use 50 mL D5W or 0.9% NaCl infuse over 15 minutes midazolam 1 MG/ML Injectable Solution Quantity:1 Ria Dawson DO Start:21-Jun-2020 Status:Discontinued lidocaine hydrochloride 20 M G/ML Injectable Solution Quantity:1 Ria Dawson DO Start:21-Jun-2020 Status:Discontinued Propofol 10 MG/ML Injectable Suspension [Diprivan] Quantity:1 Ria Dawson DO Start:21-Jun-2020 Status:Discontinued 2 ML fentaNYL 0.05 MG/ML Injection Quantity:1 Ria Dawson DO Start:21-Jun-2020 Status:Discontinued 72 HR scopolamine 0.0139 MG/ HR Transdermal System [Transderm Scop];Provider Administration Instructions:APPLY TO HAIRLESS AREA BEHIND THE EAR Quantity:1 Ria Chong R4 DO Start:21-Jun-2020 Status:Discontinued Comments:Provider Administration Instructions:APPLY TO HAIRLESS AREA BEHIND THE EAR ondansetron 2 MG/ML Injectab le Solution [Zofran];4 MILLIGRAM INTRAVEN. PACU Quantity:1 Rai Chong R4 DO Start:21-Jun-2020 Status:Discontinued Comments:[id number] Administration Instructions:* PACU * may repeat x 1, for maximum of 8 mg calcium chloride 0.2 MG/ML / potassium chloride 0.3 MG/ML / sodium chloride 6 MG/ML / sodium lactate 3.1 MG/ML Injectable Solution;Provider Administration Instructions:* PACU order, D/C after transfer * Ria Chong R4 DO Start:21-Jun-2020 Status:Discontinued Comments:Provider Administration Instructions:* PACU order, D/C after transfer * mupirocin 0.02 MG/MG Topical Ointment Quantity:1 Valarie Crandall DO Start:21-Jun-2020 Status:Discontinued BUPivacaine hydrochloride 2. 5 MG/ML Injectable Solution [Sensorcaine] Quantity:1 Valarie Crandall DO Start:21-Jun-2020 Status:Discontinued EPINEPHrine 1 MG/ML Injectab le Solution;Provider Administration Instructions:< >< >< >Caution, Look Alike Sound Alike< >< >< > Quantity:1 Valarie Crandall DO Start:21-Jun-2020 Status:Discontinued Comments:Provider Administration Instructions:< >< >< >Caution, Look Alike Sound Alike< >< >< > lidocaine hydrochloride 10 M G/ML Injectable Solution Quantity:1 Valarie Crandall DO Start:21-Jun-2020 Status:Discontinued triamcinolone acetonide 40 M G/ML Injectable Suspension [Kenalog] Quantity:1 Valarie Crandall DO Start:21-Jun-2020 Status:Discontinued Methylprednisolone 80 MG/ML Injectable Suspension [Depo-Medrol] Quantity:1 Valarie Crandall DO Start:21-Jun-2020 Status:Discontinued ceFAZolin 2000 MG Injection;[id number] Valarie Crandall DO Start:21-Jun-2020 Status:Discontinued Comments:[id number] acetaminophen 325 MG Oral Tablet;975 MILLIGRAM ORAL ONCALL Quantity:3 Valarie Crandall DO Start:21-Jun-2020 Status:Discontinued Comments:[id number] Administration Instructions:MAXIMUM DAILY DOSE OF ACETAMINOPHEN = 4000 MG celecoxib 200 MG Oral Capsul e [CeleBREX];200 MILLIGRAM ORAL PREOP Quantity:1 Valarie Crandall DO Start:21-Jun-2020 Status:Discontinued Comments:[id number] Administration Instructions:ARRIAGA-2 INHIBITOR< >< >< >Caution, Look Alike Sound Alike< >< >< > gabapentin 300 MG Oral Capsu le [Neurontin];300 MILLIGRAM ORAL PREOP Quantity:1 Valarie Crandall DO Start:21-Jun-2020 Status:Discontinued Comments:[id number] sodium chloride 9 MG/ML Injectable Solution;[id number] Valarie Crandall DO Start:21-Jun-2020 Status:Discontinued Comments:[id number] MAGNESIUM/CA Start:18-Jun-2020 Status:Discontinued sildenafil 100 MG Oral Table t;100 MILLIGRAM PO DAILY PRN Start:18-Jun-2020 Status:Discontinued Comments:100 MG PO DAILY PRN As Needed for PRESCRIBED Sotalol Hydrochloride 80 MG Oral Tablet;80 MILLIGRAM PO BID Start:18-Jun-2020 Status:Discontinued Comments:80 MG PO BID telmisartan 20 MG Oral Table t [Micardis];20 MILLIGRAM PO DAILY Start:18-Jun-2020 Status:Discontinued Comments:20 MG PO DAILY [id number] ACTUAT albutero l 0.09 MG/ACTUAT Metered Dose Inhaler;1 PUFF INH Q4H PRN Start:18-Jun-2020 Comments:1 PUFF INH Q4H PRN As Needed for SOB/WHEEZING nitroglycerin 0.4 MG Subling ual Tablet [Nitrostat];0.4 MILLIGRAM SUBLINGUAL Q5M PRN Start:18-Jun-2020 Comments:0.4 MG SL Q5M PRN As Needed for PRESCRIBED Belsomra;10 MG Orally Once a day, 1 tablet at bedtime as needed Quantity:30 LISA Man Start:05-Sep-2019 Status:Inactive Comments:10 MG Orally Once a day, 1 tablet at bedtime as needed glucose 4000 MG Chewable Tablet;16 GRAM ORAL ASDIR Quantity:4 Annemarie Leach DO Start:31-Jul-2019 Status:Discontinued Comments:[id number] Administration Instructions:CHEW TABLETS THOROUGHLY BEFORE SWALLOWING PATIENT'S OWN MEDICATION_PTOWN;Provider Administration Instructions:OZEMPIC 0.5MGPatient's own medication:OZEMPICREVIEWED IN RX Quantity:0 Annemarie Leach DO Start:31-Jul-2019 Status:Discontinued Comments:Provider Administration Instructions:OZEMPIC 0.5MGPatient's own medication:OZEMPICREVIEWED IN RX 24 HR metoprolol succinate 2 5 MG Extended Release Oral Tablet [Toprol];25 MILLIGRAM ORAL DAILY Quantity:1 Annemarie Leach DO Start:31-Jul-2019 Status:Discontinued Comments:[id number] Administration Instructions:< >< >< >Caution, Look Alike Sound Alike< >< >< >DO NOT CRUSH, CUT OR CHEW clopidogrel 75 MG Oral Table t [Plavix];75 MILLIGRAM ORAL DAILY Quantity:1 Annemarie Leach DO Start:31-Jul-2019 Status:Discontinued Comments:[id number] amLODIPine 5 MG Oral Tablet [Norvasc];5 MILLIGRAM ORAL DAILY Quantity:1 Annemarie Leach DO Start:31-Jul-2019 Status:Discontinued Comments:[id number] atorvastatin 40 MG Oral Tabl et [Lipitor];40 MILLIGRAM ORAL BEDTIME Quantity:1 Annemarie Leach DO Start:30-Jul-2019 Status:Discontinued Comments:[id number] aspirin 81 MG Chewable Table t;81 MILLIGRAM ORAL BEDTIME Quantity:1 Annemarie Leach DO Start:30-Jul-2019 Status:Discontinued Comments:[id number] HumaLOG;[id number] Administration Instructions:AGGRESSIVE SLIDING [id number] MG/DL, 0 ZHIXM896-759 MG/DL, 2 [id number] MG/DL, 4 JLEXC634-475 MG/DL, 6 CBRJX655-400 MG/DL, 8 BMDFA120-372 MG/DL, 10 UNITS>= 400 MG/DL, 12 UNITS ANDCALL RESULTS TO PHYSICIAN Quantity:0 Annemarie Leach DO Start:30-Jul-2019 Status:Discontinued Comments:[id number] Administration Instructions:AGGRESSIVE SLIDING [id number] MG/DL, 0 IJDHP086-542 MG/DL, 2 [id number] MG/DL, 4 SLIJI092-465 MG/DL, 6 SRKCL948-041 MG/DL, 8 WMLEO555-973 MG/DL, 10 UNITS>= 400 MG/DL, 12 UNITS ANDCALL RESULTS TO PHYSICIAN acetaminophen 325 MG Oral Tablet;650 MILLIGRAM ORAL Q6H PRN Quantity:2 Annemarie Leach DO Start:30-Jul-2019 Status:Discontinued Comments:[id number] Administration Instructions:MAXIMUM DAILY DOSE OF ACETAMINOPHEN = 4000 MG zolpidem tartrate 5 MG Oral Tablet;5 MILLIGRAM ORAL BEDTIME PRN Quantity:1 Annemarie Leach DO Start:30-Jul-2019 Status:Discontinued Comments:[id number] zolpidem tartrate 5 MG Oral Tablet;5 MILLIGRAM PO BEDTIME PRN Start:30-Jul-2019 Status:Discontinued Comments:5 MG PO BEDTIME PRN As Needed for INSOMNIA 24 HR metoprolol succinate 2 5 MG Extended Release Oral Tablet [Toprol];25 MILLIGRAM PO DAILY Start:30-Jul-2019 Status:Discontinued Comments:25 MG PO DAILY OZEMPIC;0.5 MILLIGRAM SUBCUTANEOUS Q7 DAYS AC BK Start:30-Jul-2019 Status:Discontinued Comments:0.5 MG SUBQ Q7 DAYS BK metoprolol tartrate 25 MG Or al Tablet;25 MILLIGRAM PO BID Start:29-Jan-2019 Status:Discontinued Comments:25 MG PO BID atorvastatin 40 MG Oral Tabl et;40 MILLIGRAM PO BEDTIME Start:29-Jan-2019 Comments:40 MG PO BEDTIME aspirin 81 MG Chewable Table t;81 MILLIGRAM PO BEDTIME Start:27-Jan-2019 Status:Discontinued Comments:81 MG PO BEDTIME MULTIVITAMIN;1 TABLET PO KYRIE LY Start:27-Jan-2019 Status:Discontinued Comments:1 TAB PO DAILY cholecalciferol 0.125 MG Ora l Capsule;5000 UNITS PO DAILY Start:27-Jan-2019 Status:Discontinued Comments:5000 UNITS PO DAILY meloxicam 15 MG Oral Tablet [Mobic];15 MILLIGRAM PO DAILY Start:27-Jan-2019 Status:Discontinued Comments:15 MG PO DAILY clopidogrel 75 MG Oral Table t;75 MILLIGRAM PO DAILY Start:27-Jan-2019 Status:Discontinued Comments:75 MG PO DAILY ascorbic acid 500 MG Oral Tablet;500 MILLIGRAM PO DAILY Start:27-Jan-2019 Status:Discontinued Comments:500 MG PO DAILY POTASSIUM;99 MILLIGRAM PO DA TEENA Start:27-Jan-2019 Status:Discontinued Comments:99 MG PO DAILY omega-3 acid ethyl esters (U SP) 1000 MG Oral Capsule;1000 MILLIGRAM PO DAILY Start:27-Jan-2019 Status:Discontinued Comments:1000 MG PO DAILY vitamin B12 1 MG Oral Tablet ;1000 MICROGRAM PO DAILY Start:27-Jan-2019 Comments:1000 MCG PO DAILY [id number] ACTUAT albutero l 0.09 MG/ACTUAT Metered Dose Inhaler;1 PUFF INH Q4H PRN Start:27-Jan-2019 Status:Discontinued Comments:1 PUFF INH Q4H PRN As Needed for ALLERGIES Eszopiclone 2 MG Oral Tablet ;2 MG Orally Once a day, 1 tablet immediately before bedtime LISA Man Start:12-Dec-2018 Status:Inactive Comments:2 MG Orally Once a day, 1 tablet immediately before bedtime BD Eclipse Syringe;25G X 1 Intramuscularly once a week, Inject 1mL of B-12 LISA Mna Start:25-Aug-2018 Status:Inactive Comments:25G X 1 Intramuscularly once a week, Inject 1mL of B-12 Blood Glucose Test Strip;N/A N/A-E11.65 Daily, as directed Quantity:100 LISA Man Start:14-May-2018 Status:Inactive Comments:N/A N/A-E11.65 Daily, as directed Advocate Lancets;DME As dire cted Daily, as directed E11.65 Quantity:100 LISA Man Start:14-May-2018 Status:Inactive Comments:DME As directed Daily, as directed E11.65 Glucometer;DME Daily, as dir ected Quantity:1 LISA Man Start:14-May-2018 Status:Inactive Comments:DME Daily, as directed lisinopril 10 MG Oral Tablet ;10 MILLIGRAM PO DAILY Start:01-Mar-2018 Status:Discontinued Comments:10 MG PO DAILY amLODIPine 5 MG Oral Tablet; 5 MILLIGRAM PO DAILY Start:01-Mar-2018 Status:Discontinued Comments:5 MG PO DAILY sildenafil 100 MG Oral Table t [Viagra];100 MG Orally Once a day, 1 tablet as needed Quantity:30 LISA Man Start:08-Feb-2018 Comments:100 MG Orally Once a day, 1 tablet as needed Diclofenac Sodium;1 % Transd ermal BID PRN, 1 gm Apply to affected area LISA Man Start:31-Oct-2017 Status:Inactive Comments:1 % Transdermal BID PRN, 1 gm Apply to affected area Omeprazole;20 MG Orally Once a day, 1 capsule Quantity:14 LISA Man Start:01-Aug-2017 Status:Inactive Comments:20 MG Orally Once a day, 1 capsule Dicyclomine Hydrochloride 20 MG Oral Tablet;20 MG Orally TID, 1 tablet Quantity:45 LISA Man Start:01-Aug-2017 Status:Inactive Comments:20 MG Orally TID, 1 tablet Ketoprofen;50 MG Orally twic e daily, 1 capsule as needed Quantity:180 LISA Man Start:05-Jan-2017 Status:Inactive Comments:50 MG Orally twice daily, 1 capsule as needed ketoprofen 75 MG Oral Capsul e;75 MILLIGRAM PO BID Start:22-Dec-2016 Status:Discontinued Comments:75 MG PO BID methotrexate 2.5 MG Oral Tablet;10 MILLIGRAM PO Q7D Start:06-Apr-2014 Status:Discontinued Comments:10 MG PO Q7D [id number] MG/;1000 MILLIG MIHIR PO BID Start:06-Apr-2014 Status:Discontinued Comments:1000 MG PO BID gabapentin 300 MG Oral Capsu le [Neurontin];300 MILLIGRAM PO BID Start:06-Apr-2014 Status:Discontinued Comments:300 MG PO BID glipiZIDE 10 MG Oral Tablet; 10 MILLIGRAM PO BID Start:06-Apr-2014 Status:Discontinued Comments:10 MG PO BID folic acid 1 MG Oral Tablet; 1 MILLIGRAM PO DAILY Start:06-Apr-2014 Status:Discontinued Comments:1 MG PO DAILY meloxicam 15 MG Oral Tablet [Mobic];15 MILLIGRAM PO DAILY Start:06-Apr-2014 Status:Discontinued Comments:15 MG PO DAILY Osmotic 24 HR NIFEdipine 60 MG Extended Release Oral Tablet [Nifedical];60 MILLIGRAM PO DAILY Start:06-Apr-2014 Status:Discontinued Comments:60 MG PO DAILY Albuterol 0.09 MG/ACTUAT Met ered Dose Inhaler [Ventolin];108 (90 Base) MCG/ACT , INHALE ONE PUFF BY MOUTH EVERY 4 HOURS NEEDED Quantity:18 LISA aMn Status:Inactive Comments:108 (90 Base) MCG/ACT , INHALE ONE PUFF BY MOUTH EVERY 4 HOURS NEEDED Ventolin HFA;108 (90 Base) MCG/ACT , INHALE ONE PUFF BY MOUTH EVERY 4 HOURS NEEDED Quantity:18 LISA Man Comments:108 (90 Base) MCG/A CT , INHALE ONE PUFF BY MOUTH EVERY 4 HOURS NEEDED meloxicam 15 MG Oral Tablet; 15 MG , TAKE ONE TABLET BY MOUTH ONE TIME DAILY Quantity:30 LISA Man Status:Inactive Comments:15 MG , TAKE ONE TABLET BY MOUTH ONE TIME DAILY Amlodipine Besylate;5 MG , T ROULA ONE TABLET BY MOUTH ONE TIME DAILY Quantity:90 LISA Man Comments:5 MG , TAKE ONE TAB LET BY MOUTH ONE TIME DAILY Micardis;20 MG , TAKE ONE TA BLET BY MOUTH ONE TIME DAILY Quantity:90 LISA Man Status:Inactive Comments:20 MG , TAKE ONE TABLET BY MOUTH ONE TIME DAILY Gabapentin;300 MG , TAKE ONE CAPSULE BY MOUTH TWICE A DAY Quantity:180 LISA Man Status:Inactive Comments:300 MG , TAKE ONE CAPSULE BY MOUTH TWICE A DAY 3 ML Insulin Glargine 100 UN T/ML Pen Injector [Lantus];100 UNIT/ML , INJECT 35 UNITS UNDER THE SKIN AT BEDTIME Quantity:45 LISA Man Status:Inactive Comments:100 UNIT/ML , INJECT 35 UNITS UNDER THE SKIN AT BEDTIME BD Pen Needle Ariella 2nd Gen;3 2G X 4 MM , USE DIRECTED ONE TIME DAILY Quantity:100 LISA Man Comments:32G X 4 MM , USE DIRECTED ONE TIME DAILY Vitamin C-Liane Hips ER;1000 MG Orally Once a day, 1 tablet LISA Man Status:Inactive Comments:1000 MG Orally Once a day, 1 tablet Indomethacin 75 MG Extended Release Oral Capsule;75 MG Orally Once a day PRN, 1 capsule with food LISA Man Status:Inactive Comments:75 MG Orally Once a day PRN, 1 capsule with food Magnesium Chloride-Calcium;6 4-106 MG Orally , as directed LISA Man Comments:64-106 MG Orally , as directed Aspir-Low;81 MG Orally Once a day, 1 tablet LISA Man Comments:81 MG Orally Once a day, 1 tablet pantoprazole 40 MG Delayed Release Oral Tablet;40 MG Orally Once a day, 1 tablet LISA Man Status:Inactive Comments:40 MG Orally Once a day, 1 tablet Vitamin D3;250 MCG (75845 UT ) Orally Once a day, 1 capsule LISA Man Status:Inactive Comments:250 MCG (86161 UT) Orally Once a day, 1 capsule Indomethacin 50 MG Oral Capsule;50 MG Orally Three times a day, 1 capsule with food or milk as needed LISA Man Status:Inactive Comments:50 MG Orally Three times a day, 1 capsule with food or milk as needed zaleplon 5 MG Oral Capsule;5 MG Orally Once a day, 1 capsule at bedtime as needed LISA Man Status:Inactive Comments:5 MG Orally Once a day, 1 capsule at bedtime as needed Colchicine;0.6 MG Orally Poncho e 1 capsule three times a day for 1 days, then take 1 capsule twice a day until flare is resolved, as directed LISA Man Status:Inactive Comments:0.6 MG Orally Take 1 capsule three times a day for 1 days, then take 1 capsule twice a day until flare is resolved, as directed Turmeric Curcumin;500 MG Ora lly , as directed LISA Man Status:Inactive Comments:500 MG Orally , as directed Tamsulosin hydrochloride 0.4 MG Oral Capsule;0.4 MG Orally twice a day, 1 capsule LISA Man Status:Inactive Comments:0.4 MG Orally twice a day, 1 capsule Zolpidem tartrate 5 MG Oral Tablet [Ambien];5 MG Orally Once a day, 1 tablet at bedtime LISA Man Status:Inactive Comments:5 MG Orally Once a day, 1 tablet at bedtime Metoprolol Tartrate;25 MG Or ally Twice a day, 1 tablet with food Quantity:60 LISA Man Status:Inactive Comments:25 MG Orally Twice a day, 1 tablet with food Loratadine;10 MG Orally Once a day, 1 tablet LISA Man Status:Inactive Comments:10 MG Orally Once a day, 1 tablet Multivitamin Adults 50+;- Or ally , as directed LISA NAVIN N Comments:- Orally , as direc james Sotalol Hydrochloride 120 MG Oral Tablet;120 MG Orally twice a day, 1 tablet LISA Man Comments:120 MG Orally twice a day, 1 tablet Metformin HCl;1000 MG , TAKE ONE TABLET BY MOUTH TWICE A DAY WITH A MEAL Quantity:180 LISA Man Status:Inactive Comments:1000 MG , TAKE ONE TABLET BY MOUTH TWICE A DAY WITH A MEAL Insulin Glargine-yfgn;100 UN IT/ML , INJECT 35 UNITS UNDER THE SKIN AT BEDTIME Quantity:45 LISA HOLDEN N Comments:100 UNIT/ML , INJEC T 35 UNITS UNDER THE SKIN AT BEDTIME tadalafil 20 MG Oral Tablet [Cialis];20 MG Orally Once a day, 1 tablet as needed Quantity:90 LISA Man Comments:20 MG Orally Once a day, 1 tablet as needed Atorvastatin Calcium;40 MG O rally Once a day, 1 tablet LISA Man Comments:40 MG Orally Once a day, 1 tablet Methotrexate 2.5 MG Oral Tablet;2.5 MG Orally once a week, 4 tablets Quantity:60 LISA Man Status:Inactive Comments:2.5 MG Orally once a week, 4 tablets Finasteride 5 MG Oral Tablet ;5 MG Orally Once a day, 1 tablet LISA Man Status:Inactive Comments:5 MG Orally Once a day, 1 tablet Plavix;75 MG Orally Once a d ay, 1 tablet LISA Man Comments:75 MG Orally Once a day, 1 tablet clopidogrel 75 MG Oral Table t;75 MG Orally Once a day, 1 tablet LISA Man Comments:75 MG Orally Once a day, 1 tablet Zolpidem tartrate 5 MG Oral Tablet;5 MG Orally Once a day, 1 tablet at bedtime LISA Man Status:Inactive Comments:5 MG Orally Once a day, 1 tablet at bedtime Lisinopril 5 MG Oral Tablet; 5 MG Orally Once a day, 1 tablet LISA Man Status:Inactive Comments:5 MG Orally Once a day, 1 tablet B Complex;- Orally , as dire cted LISA Man Status:Inactive Comments:- Orally , as directed Sildenafil Citrate;100 MG Or ally Once a day, 1 tablet as needed Quantity:90 LISA Man Status:Inactive Comments:100 MG Orally Once a day, 1 tablet as needed glipiZIDE 10 MG Oral Tablet; 10 MG Orally Once a day, 1 tablet 30 minutes before breakfast Quantity:30 LISA NAVIN N Status:Inactive Comments:10 MG Orally Once a day, 1 tablet 30 minutes before breakfast telmisartan 20 MG Oral Table t [Micardis];20 MG Orally Once a day, 2 tablets Quantity:60 LISA HOLDEN N Status:Inactive Comments:20 MG Orally Once a day, 2 tablets Ranolazine ER;500 MG Orally Twice a day, 1 tablet LISA HOLDEN N Comments:500 MG Orally Twice a day, 1 tablet Folic Acid;1 MG Orally Once a day, 1 tablet Quantity:90 LISA NAVIN N Status:Inactive Comments:1 MG Orally Once a day, 1 tablet Cyclobenzaprine HCl;5 MG Ora lly Three times a day, 1 tablet as needed Quantity:90 LISA NAVIN N Status:Inactive Comments:5 MG Orally Three times a day, 1 tablet as needed 24 HR Isosorbide Mononitrate 30 MG Extended Release Oral Tablet;30 MG Orally Once a day, 1 tablet in the morning LISA HOLDEN N Status:Inactive Comments:30 MG Orally Once a day, 1 tablet in the morning 24 HR NIFEdipine 60 MG Exten ded Release Oral Tablet [Nifedical];60 MG Orally Once a day, 1 tablet LISA Man Status:Inactive Comments:60 MG Orally Once a day, 1 tablet 24 HR metoprolol succinate 2 5 MG Extended Release Oral Tablet;25 MG Orally Once a day, 1 tablet LISA Man Status:Inactive Comments:25 MG Orally Once a day, 1 tablet 120 ACTUAT Budesonide 0.16 MG/ACTUAT / formoterol fumarate 0.0045 MG/ACTUAT Metered Dose Inhaler [Symbicort];160-4.5 MCG/ACT Inhalation twice a day, 2 puffs LISA Man Status:Inactive Comments:160-4.5 MCG/ACT Inhalation twice a day, 2 puffs *OZEMPIC 0.25 MG OR 0.5 MG D OSE PRE-FILLED PEN INJECTOR - (No interaction check);2 MG/1.5ML Subcutaneous Once a Week, 0.5mg LISA Man Status:Inactive Comments:2 MG/1.5ML Subcutaneous Once a Week, 0.5mg Ozempic (1 MG/DOSE);4 MG/3ML Subcutaneous weekly, INJECT 2MG UNDER THE SKIN EVERY WEEK Quantity:6 LISA Man Comments:4 MG/3ML Subcutaneo us weekly, INJECT 2MG UNDER THE SKIN EVERY WEEK Cyanocobalamin;1000 MCG/ML Injection Once a Week, 1 ml Quantity:4 LISA Man Status:Inactive Comments:1000 MCG/ML Injection Once a Week, 1 ml Nitrostat;0.4 MG Sublingual as needed, as directed LISA Man Comments:0.4 MG Sublingual a s needed, as directed Ofloxacin;0.3 % Otic twice a day, 5 drops as needed LISA Man Status:Inactive Comments:0.3 % Otic twice a day, 5 drops as needed BD Pen Needle Ariella U/F;4 mm x 32 G use as directed use as directed, use as directed Quantity:90 LISA Man Status:Inactive Comments:4 mm x 32 G use as directed use as directed, use as directed Potassium Citrate LISA Man Misc Natural Product LISA Man Status:Inactive Immunizations FLU 3V (FLUAD TRI), 65yrs+, NO PRES - ALL PAYORS Lot #:[id number], Seq[employer] COVID-19 (Comirnaty ) 12+yrs, NO PRES Lot #:[id number], [employer] Social History Smoking Status Never smoked tobacco Recorded: 19-Aug-2023 Ex-smoker Recorded: 08-Mar-2023 Never smoked tobacco Recorded: 03-Mar-2023 Never smoked tobacco Recorded: 20-Feb-2023 Never smoked tobacco Recorded: 22-May-2022 Never smoked tobacco Recorded: 21-Jul-2021 Never smoked tobacco Recorded: 23-Jun-2021 Never smoked tobacco Recorded: 30-Jul-2019 Never smoked tobacco Recorded: 27-Jan-2019 Never smoked tobacco Recorded: 01-Mar-2018 Never smoked tobacco Recorded: 22-Dec-2016 Tobacco non-user Results CMP14 + eGFR ([id number]) Ordered On:23-Apr-19 Comments:NHI MENDOZA 04/25/2024 12:10:03 PM EST >Patient aware of results.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: [facility], [address] [place] [address], [place], [place] [id number], Phone - [phone], Director - Rosie Albumin [Mass/Vol]3.8g/dL(Low) Range:3.9g/dL-4.9g/dL ALP [Catalytic activity/Vol]85[IU]/L Range:44[IU]/L-121[IU]/L Potassium [Moles/Vol]4.6mmol/L Range:3.5mmol/L-5.2mmol/L Glucose [Mass/Vol]91mg/dL Range: 70mg/dL-99mg/dL Creatinine [Mass/Vol]1.69mg/dL(High) Range:0.76mg/dL-1.27mg/dL Sodium [Moles/Vol]139mmol/L Rang e:134mmol/L-144mmol/L Chloride [Moles/Vol]105mmol/L Range:96mmol/L-106mmol/L Calcium [Mass/Vol]9.0mg/dL Range :8.6mg/dL-10.2mg/dL CO2 [Moles/Vol]22mmol/L Range:20 mmol/L-29mmol/L Urea nitrogen/Creati nine [Mass ratio]9(Low) Range:10-24 Urea nitrogen [Mass/Vol]15mg/dL Range:8mg/dL-27mg/dL Bilirubin [Mass/Vol]0.3mg/dL Range:0mg/dL-1.2mg/dL Protein [Mass/Vol]6.0g/dL Range: 6g/dL-8.5g/dL GFR/1.73 sq M.predic james Creatinine-based formula (CKD-EPI 2020) (S/P/Bld) [Vol rate/Area]44mL/min/{1.73_m2 }(Low) Range:59mL/min/{1.73_m2}-0 ALT [Catalytic activity/Vol]13[IU]/L Range:0[IU]/L-44[IU]/L Globulin Calc (S) [Mass/Vol]2.2g/dL Range:1.5g/dL-4.5g/dL AST [Catalytic activity/Vol]23[IU]/L Range:0[IU]/L-40[IU]/L CBC With Differential/Platelet ([id number]) Ordered On:23-Apr-2024 Comments:NHI MENDOZA 04/25/2024 12:10:03 PM EST >Patient aware of results.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: [facility], [address] [place] [address] [id number], Phone - [phone], Director - Rosie MCV Auto (RBC) [Enti tic vol]91fL Range:79fL-97fL Hemoglobin (Bld) [Mass/Vol]11.8g/dL(Low) Range:13g/dL-17.7g/dL Immature granulocyte s/100 WBC Auto (Bld)0% Range:Not Estab. % Lymphocytes Auto (Bl d) [#/Vol]1.010*3/uL Range:0.710*3/uL-3.110*3/uL Morphology [place] (Bld) [Interp]INVENTORY COORDINATOR Lymphocytes/100 WBC Auto (Bld)18% Range:Not Estab. % Monocytes Auto (Bld) [#/Vol]0.410*3/uL Range:0.110*3/uL-0.910*3/uL Nucleated RBC/100 WB C Auto (Bld) [Ratio]INVENTORY COORDINATOR MCH Auto (RBC) [Enti tic mass]28.4pg Range:26.6pg-33pg Basophils/100 WBC Au to (Bld)0% Range:Not Estab. % Eosinophils Auto (Bl d) [#/Vol]0.110*3/uL Range:010*3/uL-0.410*3/uL Neutrophils/100 WBC Auto (Bld)72% Range:Not Estab. % WBC Auto (Bld) [#/Vol]5.910*3/uL Range:3.410*3/uL-10.810*3/uL Erythrocyte distribu tion width Auto (RBC) [Ratio]16.2%(High) Range:11.6%-15.4% Neutrophils Auto (Bl d) [#/Vol]4.310*3/uL Range:1.410*3/uL-710*3/uL RBC Auto (Bld) [#/Vol]4.1510*6/uL Range:4.1410*6/uL-5.810*6/uL Immature CellsNP Platelets Auto (Bld) [#/Vol]64938*3/uL Range:17608*3/uL-86720*3/uL Hematocrit Auto (Bld ) [Volume fraction]37.8% Range:37.5%-51% MCHC Auto (RBC) [Mass/Vol]31.2g/dL(Low) Range:31.5g/dL-35.7g/dL Monocytes/100 WBC Au to (Bld)8% Range:Not Estab. % Eosinophils/100 WBC Auto (Bld)2% Range:Not Estab. % Immature granulocyte s Auto (Bld) [#/Vol]0.010*3/uL Range:010*3/uL-0.110*3/uL Basophils Auto (Bld) [#/Vol]0.010*3/uL Range:010*3/uL-0.210*3/uL Urinalysis, Routine ([id number]) Ordered On:23-Apr-2024 Comments:NHI MENDOZA 04/25/2024 12:10:03 PM EST >Patient aware of results.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: [facility], [address] [place] [address] [id number], Phone - [phone], Director - [facility] Nitrite Test strip Q l (U)Negative Range:Negative Ketones Test strip Q l (U)Negative Range:Negative pH Test strip (U)6.0 Range:5-7.5 Bilirubin Test strip Ql (U)Negative Range:Negative Specific gravity Yris t strip (U) [Rel density]1.019 Range:1.005-1.[address] rip (U) [Mass/Vol]0.2mg/dL Range:0.2mg/dL-1mg/dL Hemoglobin Test stri p Ql (U)Negative Range:Negative Glucose Test strip Q l (U)Negative Range:Negative Leukocyte esterase T est strip Ql (U)Negative Range:Negative Microscopic observat ion LM Nom (Urine sed) Comments:Microscopic not indicated and not performed. Protein Test strip Q l (U)Trace Range:Negative/Trace Color (U)Yellow Range:Yellow Appearance (U)Clear Range:Clear Lipid Panel ([id number]) Ordered On:23-Apr-2024 Co mments:NHI MENDOZA 04/25/2024 12:10:03 PM EST >Patient aware of results.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: [facility] [id number], Phone - [phone], Director - Rosie Triglyceride [Mass/Vol]135mg/dL Range:0mg/dL-149mg/dL Laboratory comment N ar (Report)INVENTORY COORDINATOR Cholesterol in VLDL Calc [Mass/Vol]24mg/dL Range:5mg/dL-40mg/dL Cholesterol in LDL C alc [Mass/Vol]32mg/dL Range:0mg/dL-99mg/dL Cholesterol in HDL [Mass/Vol]38mg/dL(Low) Range:39mg/dL-0 Cholesterol [Mass/Vol]94mg/dL(Low) Range:100mg/dL-199mg/dL Iron and TIBC ([id number]) Ordered On:23-Apr-2024 Comments:NHI MENDOZA 04/25/2024 12:10:03 PM EST >Patient aware of results.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: [facility] [address] [id number], Phone - [phone], Director - Rosie Iron saturation [Mas s fraction]17% Range:15%-55% Iron [Mass/Vol]53ug/dL Range:38u g/dL-169ug/dL Iron binding capacity.unsaturated [Mass/Vol]253ug/dL Range:111ug/dL-343ug/dL Iron binding capacit y [Mass/Vol]306ug/dL Range:250ug/dL-450ug/dL Hemoglobin A1c ([id number]) Ordered On:23-Apr-2024 Comments:NHI MENDOZA 04/25/2024 12:10:03 PM EST >Patient aware of results.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: [facility], [address] [place] [address] [id number], Phone - [phone], Director - Rosie HbA1c (Bld) [Mass fraction]7.4%(High) Range:4.8%-5.6% Comments:. Prediabetes: 5.7 - 6.4 Diabetes: >6.4 Glycemic control for adults with diabetes: <7.0 Ferritin ([id number]) Ordered On:23-Apr-2024 Comme nts:NHI MENDOZA 04/25/2024 12:10:03 PM EST >Patient aware of results.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: [facility], [address] [place] [address] [id number], Phone - [phone], Director - Rosie Ferritin [Mass/Vol]31ng/mL Range :30ng/mL-400ng/mL Urine Culture, Routine ([id number]) Ordered On:23-Apr-2024 Comments:NHI MENDOZA 04/25/2024 12:10:03 PM EST >Patient aware of results.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: [facility], [address] [place] [address] [id number], Phone - [phone], Director - Rosie Bacteria identified Cx Nom (U) Comments:Culture shows less than 10,000 colony forming units of bacteria permilliliter of urine. This colony count is not generally consideredto be clinically significant. Bacteria identified Cx Nom (U)Final report Comments:PATIENT IS FASTING Encounters pre-admission 22-Jul-2021 07:40 [facility]
--- OUTSIDE RECORDS SUMMARY | 2025-02-20 06:49 | XMS_ITS | Patient Health Record ---
Author Organization [facility] are Address [address] [address] [place] [address] Care Team Providers Care Roof Promenade Tile Setter Name Role Phone NAVIN GONZALEZ Primary Care Provider Molina MEÑO Gill Unavailable [phone] Allergies No Known Allergies Reason For Referral No Information Medications Medication SIG (Take, Route, Frequency, Duration) Notes Start Date End Date Status Cialis 20 MG 1 tablet as needed Orally Once a day; Duration: 30 day(s) 02/12/2024 Active Loratadine Unknown Atorvastatin Calcium Unknown Bactrim DS 800-160 MG 1 tablet Orally Twice a day; Duration: 3 day(s) 07/07/2021 Unknown Clopidogrel Bisulfate Unknown Cipro 500 MG 1 tablet Orally every 12 hrs; Duration: 3 days Unknown Gabapentin Unknown glipiZIDE Unknown Cipro 500 MG 1 tablet Orally every 12 hrs; Duration: 5 days 10/03/2023 Not-Taking Meloxicam Unknown Ketorolac Tromethamine 10 MG 1 tablet with food or milk as needed Orally every 6 hrs; Duration: 5 days 10/03/2023 Not-Taking metFORMIN HCl Unknow n Pyridium 200 MG 1 tablet after meals Orally Three times a day; Duration: 5 days As needed for burning 10/03/2023 Not-Taking Metoprolol Succinate Unknown oxyBUTYnin Chloride 5 MG 1 tablet Orally twice per day; Duration: 30 days As needed for bladder spasms 10/03/2023 Not-Taking Nitroglycerin Unknow n Tamsulosin HCl 0.4 MG TAKE ONE CAPSULE BY MOUTH TWICE A DAY; Duration: 30 Not-Taking Ozempic Unknown Finasteride 5 MG 1 tablet Orally Once a day; Duration: 60 days Surgery on - Aquablation Not-Taking Sildenafil Citrate U nknown amLODIPine Besylate Unknown Immunizations Vaccine Route Administration Date Status Comme nts Influenza Unknown 01/07/2019 Administered Influenza Unknown 08/25/2019 Administered Social History Tobacco Use: Social History Observation Description Date Details (start date - stop date) Former Smoker NA - NA Smoking: Question Answer Notes Are you a: former smoker How long has it been since you last smoked? > 10 years Additional Findings: Tobacco Non-User Current no n-smoker Alcohol Screening Question Answer Notes Did you have a drink contain ing alcohol in the past year? Yes How often did you have a dri nk containing alcohol in the past year? Two to three times per week (3 points) How many drinks did you have on a typical day when you were drinking in the past year? 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) Active confirmed Problem Hydronephrosis (79509663) Hydronephrosis (N13.30) Active confirmed Problem Lower urinary tract symptoms due to benign prostatic hypertrophy (70528091256747) Benign localized hyperplasia of prostate with urinary obstruction and other lower urinary tract symptoms (LUTS) (N40.1) Active confirmed Problem Kidney stone (64602099) Calcium kidney stone (N20.0) Active confirmed Problem Benign enlargement of prostate (964879183) Benign enlargement of prostate (N40.0) Active confirmed Problem Androgen deficiency (81160226) Androgen deficiency (E29.1) Active confirmed Problem Frequency (462034944) Frequency (R35.0) Active confirmed Problem Elevated PSA (055687616) Elevated PSA (R97.20) Active confirmed Problem Gross hematuria (657985413) Gross hematuria (R31.0) Active confirmed Plan Of Treatment Pending Test Test Name Order Date Testosterone, Serum 10/28/2019 PSA, total 10/28/2019 UROFLOW 08/03/2023 RETROGRADE PYELOGRAM 06/23/2021 RETROGRADE PYELOGRAM 03/04/2023 SURGICAL 06/24/2021 SURGICAL 07/25/2021 CT ABD AND PELVIS NON CONTRAST 2 *PSA TOTAL DX: R97.20 and *TESTOSTERONE SERUM DX: E29.1- Lab Order 06/05/2023 Insurance Providers Payer Name Payer Address Payer Phone Subscriber Number Group Number Insured Name Patient Relationship to Insured Coverage Start Date Coverage End Date MEDICARE PART-B [address] [place] [address] [id number] BECKY WATTS Self - patient is the insured 4 [employer] (2NDARY TO MEDICARE) [address] [place] [address] [id number] STEFANIENEFTALI MANNBECKY Self - patient is the insured Medical (General) History Medical History History ICD Code kidney stone diabetes gout hernia high cholesterol heart disease Surgical History Surgery Date(Month/Year) heart stent lap band 2009 hernia 2010 bilateral URS, left stent placement 02/08 08/29 Hospitalization History Reason Date(Month/Year) heart stent 2019 kidney stones 2020
--- OUTSIDE RECORDS SUMMARY | 2025-02-20 06:50 | XMS_ITS | Patient Health Record ---
Author Organization [facility] [place] Address [address] [place], [place] [address] Care Team Providers Care Analytics Associate Name Role Phone NAVIN GONZALEZ DO Primary Care Provider Unavaila REX Alicea Unavailable [phone] LEONILA POE Unavailable [phone] RUI JOCELYNE Unavailable [phone] Migration, Provider Unavailable Unavailable Allergies No Known Allergies Reason For Referral No Information Medications Medication SIG (Take, Route, Frequency, Duration) Notes Start Date End Date Status amLODIPine Besylate 5 MG Tablet 1 tab(s) orally once a day Active SLO MAG 64 MG TABLET 1 TAB ORAL QD *Please rev iew for potential replacement for e-prescription and drug interaction check* Active Nitroglycerin 0.4 MG Tablet Sublingual 1 tab(s) sublingually every 5 minutes Active Ozempic (1 MG/DOSE) 2 MG/1.5 ML SOLUTION 0.5MG SUBCUTANEOUSLY ONCE A WEEK *Please review and pick correct strength-formulat ion from [employer] options. If intended option is not shown, discontinue and re-order from Quick Search* Active Viagra 100 MG Tablet 1 tab(s) orally onc e a day Active Ranolazine ER 500 MG TABLET, EXTENDED RELEASE 1 TAB(S) ORALLY 2 TIMES A DAY; Duration: 90 DAYS *Please review and pick correct strength-formulat ion from [employer] options. If intended option is not shown, discontinue and re-order from Quick Search* 02/08/2024 04/17/2025 Active Plavix 75 MG Tablet 1 tab(s) orally once a day; Duration: 90 days Active Telmisartan 20 MG Tablet 1 tab(s) orally once a day IN THE EVENING 02/23/2020 Active Aspirin 81 MG Tablet Delayed Release 1 tab(s) orally once a day 02/23/2020 Active Sotalol HCl 120 MG Tablet 1 tab(s) orally 2 times a day Active POTASSIUM CITRATE, 454 G *Please review for potential replacement for e-prescription and drug interaction check* Active Atorvastatin Calcium 40 MG Tablet 1 tab(s) orally once a day; Duration: 90 days Active Multivitamin QD *Please review and pick correct strength-formulat ion from [employer] options. If intended option is not shown, discontinue and re-order from Quick Search* Active Lantus 100 UNIT/ML Solution 0 subcutaneously Active Ventolin HFA 108 (90 Base) MCG/ACT Aerosol Solution 2 puff(s) inhaled every 6 hours PRN Active Social History Tobacco Use: Social History Observation Description Date Details (start date - stop date) Never Smoker NA - NA Social History Social History Social Info Question Answer Notes Sexually active: Had sex in the past 12 months (vagina l, oral, or anal) No Alcohol: Did you have a drink containing alcohol in the past year? Yes How often did you have a drink containing alcohol in the past year? Two to three times per week (3 points) How many drinks did you have on a typical day when you were drinking in the past year? 1 or 2 (0 points) Points 3 Interpretation Negative Smoking Are you a: never smoker Additional Details Category Social Info Options Details Social History Occupation: EMPLOYED Exercise: NONE Caffeine: 1 COFFEE, 1-2 SO WEINER DAILY Marital Status: Children: 2 CHILDREN Have you been exposed to a p erson confirmed to have COVID-19? NO In the past 3 weeks have you had close contact with someone who has traveled either within the [place] or Internationally NO Do you have fever and respir atory symptoms such as cough or shortness of breath NO Section Notes: NEVER SMOKER, ALCOHOL 1 BEER FEW TIMES A WEEK NEVER SMOKER, ALCOHOL 1 BEER FEW TIMES A WEEK NEVER SMOKER, ALCOHOL 1 BEER FEW TIMES A WEEK NEVER SMOKER, ALCOHOL 1 BEER FEW TIMES A WEEK NEVER SMOKER, ALCOHOL 1 BEER FEW TIMES A WEEK NEVER SMOKER, ALCOHOL 1 BEER FEW TIMES A WEEK NEVER SMOKER, ALCOHOL 1 BEER FEW TIMES A WEEK NEVER SMOKER, ALCOHOL 1 BEER FEW TIMES A WEEK NEVER SMOKER, ALCOHOL 1 BEER FEW TIMES A WEEK NEVER SMOKER, ALCOHOL 1 BEER FEW TIMES A WEEK NEVER SMOKER, ALCOHOL 1 BEER FEW TIMES A WEEK NEVER SMOKER, ALCOHOL 1 BEER FEW TIMES A WEEK NEVER SMOKER, ALCOHOL 1 BEER FEW TIMES A WEEK NEVER SMOKER, ALCOHOL 1 BEER FEW TIMES A WEEK NEVER SMOKER, ALCOHOL 1 BEER FEW TIMES A WEEK NEVER SMOKER, ALCOHOL 1 BEER FEW TIMES A WEEK NEVER SMOKER, ALCOHOL 1 BEER FEW TIMES A WEEK NEVER SMOKER, ALCOHOL 1 BEER FEW TIMES A WEEK NEVER SMOKER, ALCOHOL 1 BEER FEW TIMES A WEEK NEVER SMOKER, ALCOHOL 1 BEER FEW TIMES A WEEK NEVER SMOKER, ALCOHOL 1 BEER FEW TIMES A WEEK NEVER SMOKER, ALCOHOL 1 BEER FEW TIMES A WEEK NEVER SMOKER, ALCOHOL 1 BEER FEW TIMES A WEEK Problems Problem Type SNOMED Code ICD Code Onset Dates Problem Status W/U Status Risk Notes Problem Essential hypertension (31552614) Essential (primary) hypertension (I10) Active confirmed Problem Type II diabetes mellitus without complication (108202631) Type 2 diabetes mellitus without complications (E11.9) Active confirmed Problem Chest pain (53083601) Chest pain, unspecified (R07.9) Active confirmed Problem Vitamin D deficiency (31475049) Vitamin D deficiency, unspecified (E55.9) Active confirmed Problem Angina pectoris (038769123) Angina pectoris, unspecified (I20.9) Active confirmed Problem Atherosclerotic heart disease of [place] coronary artery without angina pectoris (342047792810020) Atherosclerotic heart disease of [place] coronary artery without angina pectoris (I25.10) Active confirmed Problem Unstable angina co-occurrent and due to coronary arteriosclerosis (23808260773508324) Atherosclerotic heart disease of [place] coronary artery with unstable angina pectoris (I25.110) Active confirmed Problem Ischemic heart disease (595891723) Ischemic Heart Disease (I25.89) Active confirmed Problem Heart failure (78901097) Heart failure, unspecified (I50.9) Active confirmed Problem Body mass index 30.00 to 34.99 (207155182374358) Body mass index (BMI) 34.0-34.9, adult (Z68.34) Active confirmed Problem Obese class II (534431758320665) Body mass index (BMI) 35.0-35.9, adult (Z68.35) Active confirmed Problem Hyperlipidemia (19237644) Hyperlipidemia (E78.49) Active confirmed Problem Body mass index 30.00 to 34.99 (887298905453915) Body mass index [BMI] 32.0-32.9, adult (Z68.32) Active confirmed Problem Body mass index 30.00 to 34.99 (802771753351179) Body mass index [BMI] 33.0-33.9, adult (Z68.33) Active confirmed Problem Body mass index 30.00 to 34.99 (037616676683671) Body mass index [BMI] 34.0-34.9, adult (Z68.34) Active confirmed Problem Obese class II (003507144701688) Body mass index [BMI] 35.0-35.9, adult (Z68.35) Active confirmed Problem Body mass index 35.00 to 39.99 (020544155611067) Body mass index [BMI] 36.0-36.9, adult (Z68.36) Active confirmed Problem Body mass index 35.00 to 39.99 (697064817269453) Body mass index [BMI] 37.0-37.9, adult (Z68.37) Active confirmed Encounters Encounter Location Date Provider Diagnosis DEANNA HOFFMAN [address] [place], [place] [id number] 01/18/2025 Provider Migration Hyperlipidemia E78.49 ; Essential (primary) hypertension I10 and Ischemic Heart Disease I25.89 DEANNA HOFFMAN [address] [place], [place] [id number] 02/21/2024 LEONILA POE Hyperlipidemia E78.4 9 DEANNA HOFFMAN [address] [place], [place] [id number] 04/16/2024 LEONILA POE Ischemic Heart Disea se I25.89 DEANNA HOFFMAN [address] [place], [place] [id number] 04/22/2024 LEONILA POE Hyperlipidemia E78.4 9 and Ischemic Heart Disease I25.89 Assessments Encounter Date Diagnosis (ICD Code) Assessment Notes Treatment Notes Treatment Clinical Notes Section Notes 01/18/2025 Hyperlipidemia (ICD-10 - E78.49) 02/21/2024 Hyperlipidemia (ICD-10 - E78.49) 04/16/2024 Ischemic Heart Disease (ICD-10 - I25.89) 04/22/2024 Hyperlipidemia (ICD-10 - E78.49) 04/22/2024 Ischemic Heart Disease (ICD-10 - I25.89) 01/18/2025 Essential (primary) hypertension (ICD-10 - I10) 01/18/2025 Ischemic Heart Disease (ICD-10 - I25.89) Plan Of Treatment Pending Test Test Name Order Date CPK (Creatinine Phosphokinase) Carotid Duplex 03/12/2023 HOLTER MONITOR 03/27/2023 CMP 03/27/2023 EKG 01/19/2023 EKG 12/24/2019 EKG 12/26/2019 EKG 10/20/2020 EKG 02/19/2024 EKG 01/20/2022 STRESS TEST : ADENOSINE 01/17/2019 STRESS TEST : ADENOSINE 10/20/2020 EKG X 2 12/24/2019 SED RATE BY MODIFIED VIVEK 01/07/20 LYME DISEASE ANTIBODIES (IGG, IGM) ELANA RN BLOT 01/07/2020 VITAMIN B12/FOLATE, SERUM PANEL 01/07/20 THYROID PANEL WITH TSH 01/07/2020 HEPATITIS PANEL 12/09/2020 ECHOCARDIOGRAM 03/12/2023 ECHOCARDIOGRAM 10/20/2020 ECHOCARDIOGRAM 01/17/2019 CTA CORONARY 09/15/2022 FATIGUE PANEL MALE INCLUDES TSH, FREE T4, IRON, FERRITIN, TIBC, VIT B12, FOLATE, VIT D, TESTO, SED RATE 12/09/2020 CBC WIITH DIFF 03/27/2023 BMP 03/28/2023 TSH, IF ABNORMAL DO FREE T4 03/27/2023 MAGNESIUM 03/27/2023 Insurance Providers Payer Name Payer Address Payer Phone Subscriber Number Group Number Insured Name Patient Relationship to Insured Coverage Start Date Coverage End Date MEDICARE [address] [place], [place] [id number] BECKY WATTS Self - patient is the insured [facility] 2[address] OR 3[address] PA[address]OR [address] [place], [place] [id number] BECKY WATTS Self - patient is the insured 0 Medical (General) History Medical History History ICD Code HYPERTENSION, CC LIGHTHEADED ON GETTING UP Type 2 diabetes mellitus without complic ations E11.9 Chest pain, unspecified R07.9 NO RH SCARET FEVER CATH 05/24/2022 HAD CHEST PAINS PRIOR TO STENT ECHO 03/21/2023 EF 45-50%, STRESS 11/08/2020 ABNORMAL Surgical History Surgery Date(Month/Year) KNEE SX LATERAL RELEASE HERNIA SX CARPEL TUNNEL LAP BAND CATH PCI DI/ LAD, IN [facility] DR SHANKS 01/26 19 [facility] 05/2022 CATH WITH PCI TO RCA, 85% IS R OF D1 TO BE TREATED MEDICALLY, DR SHANKS 05/2022 [facility] 07/2022 Hospitalization History Reason Date(Month/Year) [facility] 09/2023 [facility] CATH 05/2022
--- OUTSIDE RECORDS SUMMARY | 2025-02-20 06:50 | XMS_ITS | Encounter Summary ---
Author Organization Healthcare Address [address] [id number] Care Team Providers Care Bowling Alley Mechanic Name Role Phone Cristela Marmolejo APRN Primary Care Provider [phone] Reason for Visit * Reason Onset Date Comments [facility] requesting PA on Renal CT 01/07 Encounter Details Date Type Department Care Team ([facility] st Contact Info) Description 01/23/2025 Telephone [facility] [address], [address] [place] [address] Deni Lyman MD [address] [place] [phone] [facility] Social History Tobacco Use Types Packs/Day Years Used Date Smoking Tobacco: Never Smokeless Tobacco: Never Alcohol Use Standard Drinks/Week Comments Not Currently [...] on file documented as of this encounter Miscellaneous Notes * Telephone Encounter - Daniela Burks Ayse - 01/23/2025 1:44 PM EDT Patient Phone Message Reason for Call: [facility] is requesting a prior auth for Renal CT. Best contact number and optimal time of day to reach caller: [phone] Note: Please do not reply to this message. Follow-up communication and further actions as a result of this message need to be communicated with the patient directly, if the patient is not active onMyChart. If the patient is active on MyChart, they will receive notification of the communication/outcome via MyChart. documented in this encounter Plan of Treatment Upcoming Encounters Date Type Department Care Team (Late st Contact Info) Description 07/10/2025 12:40 PM EDT Office Visit [facility] [address] [place] [address] Deni Lyman MD [address] [place] [phone] documented as of this encounter Visit Diagnoses Not on filedocumented in this encounter Additional Health Concerns Assessment Noted Time PHQ-9 Depression Total Score: 0 12/25/19 1:16 PM EDT A fall risk assessment has been complete d for the patient 12/24/2024 1:16 PM EDT A Body Mass Index follow-up plan has been documented for the patient 12/25/2024 2:16 PM EDT documented as of this encounter Care Teams Bowling Alley Mechanic Relationship Specialty Start Date End Date Cristela Marmolejo APRN [address] [place] [address] PCP - General 10/01/24 documented as of this encounter
--- OUTSIDE RECORDS SUMMARY | 2025-02-20 06:51 | XMS_ITS | Continuity of Care Document ---
Author Organization NICOLE Vijaya Abreu [facility] Address [address] [place] [address] Care Team Providers Care Mental Health Unit Lead Psychologist Name Role Phone MARGARETTE ARROYO Referring Provider [phone] Assessment No assessment recorded. Plan of Treatment Reminders Order Date Submit Date Provider Last Modified By Organization Details Last Modified Time Details Appointments None recorded. Lab renal function panel, serum 2024 025 [facility], [address], [place] [address], [place], [address], 10:07:57 CBC w/ auto diff 2024 025 [facility], [address], [place] [address], [place], [address], 10:07:56 protein + creatinine panel, urine 2024 025 [facility], [address], [address], [place], [address], 5 10:07:57 urinalysis complete, reflex culture 2024 025 [facility], [address], [place] [address], [place], [address], 5 10:07:56 PTH (parathyroi d hormone), intact, serum or plasma 2024 025 [facility], [address], [place] [address], [place], [address], 10:07:58 vitamin D, 25-hydroxy, total, serum 2024 025 [facility], [address], [place], [place], [address], 10:07:58 TSH + free T4, serum 2024 025 [facility], [address], [place], [place], [address], 10:07:55 Referral None recorded. Procedures None recorded. Surgeries None recorded. Imaging None recorded. Medication Orders None recorded. Patient TargetsNo targets recorded. Patient Instructions Encounter Date Encounter Id Patient Instructions Last Modified By Organization Details Last Modified Time 12/02/2024 [id number] learning about healthy weight efryman Not available 12/02/2024 08:52:22 body mass index: care instructions [email or web address] Not available 12/02/2024 08:52:21 Reason for Referral None Reported. Results Created Date Observation Date Name Description Value Unit Range Abnormal Flag Note LastModifiedBy Organization Detail LastModifiedTime 12/03/1912/03/2024 TSH+F REE T4 TSH 2.810 uIU/m L 0.450- 4.500 normal Not Available [facility] ([facility]) [address] [place], [address], 12/04/2024 10:07:55 12/03/1912/03/2024 TSH+F REE T4 T4,free(dire ct) 1.29 NG/dL 0.82-1 .77 normal Not Available [facility] ([facility]) [address] [place], [address], 12/04/2024 10:07:55 12/03/19 25 12/03/2024 CBC WITH DIFFE PARTHTI AL/PL ATELE T WBC 6.1 x10e3 /uL 3.4-10 .8 normal Not Available [facility] ([facility]) [address] [place], [address], 12/04/2024 10:07:56 12/03/19 25 12/03/2024 CBC WITH DIFFE RENTI AL/PL ATELE T RBC 4.87 x10e6 /uL 4.14-5 .80 normal Not Available [facility] ([facility]) [address] [place], [address], 12/04/2024 10:07:56 12/03/19 25 12/03/2024 CBC WITH DIFFE RENTI AL/PL ATELE T hemoglobin 15.6 g/dL 13.0-1 7.7 normal Not Available [facility] ([facility]) [address] [place], [address], 12/04/2024 10:07:56 12/03/19 25 12/03/2024 CBC WITH DIFFE RENTI AL/PL ATELE T hematocrit 46.6 % 37.5-5 1.0 normal Not Available [facility] ([facility]) [address] [place], [address], 12/04/2024 10:07:56 12/03/19 25 12/03/2024 CBC WITH DIFFE RENTI AL/PL ATELE T MCV 96 fL 79-97 normal Not Available [facility] ([facility]) [address] [place], [address], 12/04/2024 10:07:56 12/03/19 25 12/03/2024 CBC WITH DIFFE RENTI AL/PL ATELE T MCH 32.0 pg 26.6-3 3.0 normal Not Available [facility] ([facility]) [address] [place], [address], 12/04/2024 10:07:56 12/03/19 25 12/03/2024 CBC WITH DIFFE RENTI AL/PL ATELE T MCHC 33.5 g/dL 31.5-3 5.7 normal Not Available [facility] ([facility]) [address] [place], [address], 12/04/2024 10:07:56 12/03/19 25 12/03/2024 CBC WITH DIFFE RENTI AL/PL ATELE T RDW 13.6 % 11.6-1 5.4 Not Available [facility] ([facility]) [address] [facility], [place], [address], 12/04/2024 10:07:56 12/03/19 25 12/03/2024 CBC WITH DIFFE RENTI AL/PL ATELE T platelets 254 x10e3 /uL 150-45 0 normal Not Available [facility] ([facility]) [address] [facility], [place], [address], 12/04/2024 10:07:56 12/03/19 25 12/03/2024 CBC WITH DIFFE RENTI AL/PL ATELE T neutrophils 65 % not estab. normal Not Available [facility] ([facility]) [address] [facility], [place], [address], 12/04/2024 10:07:56 12/03/19 25 12/03/2024 CBC WITH DIFFE RENTI AL/PL ATELE T lymphs 23 % not estab. normal Not Available [facility] ([facility]) [address] [facility], [place], [address], 12/04/2024 10:07:56 12/03/19 25 12/03/2024 CBC WITH DIFFE RENTI AL/PL ATELE T monocytes 8 % not estab. normal Not Available [facility] ([facility]) [address] [facility], [place], [address], 12/04/2024 10:07:56 12/03/19 25 12/03/2024 CBC WITH DIFFE RENTI AL/PL ATELE T eos 3 % not estab. normal Not Available [facility] ([facility]) [address] [facility], [place], [address], 12/04/2024 10:07:56 12/03/19 25 12/03/2024 CBC WITH DIFFE RENTI AL/PL ATELE T basos 1 % not estab. normal Not Available [facility] ([facility]) [address] [place], [address], 12/04/2024 10:07:56 12/03/19 25 12/03/2024 CBC WITH DIFFE RENTI AL/PL ATELE T immature cells RECRUITING COORDINATOR Not Available [facility] ([facility]) [address] [place], [address], 12/04/2024 10:07:56 12/03/19 25 12/03/2024 CBC WITH DIFFE RENTI AL/PL ATELE T neutrophils (absolute) 4.1 x10e3 /uL 1.4-7. 0 normal Not Available [facility] ([facility]) [address] [place], [address], 12/04/2024 10:07:56 12/03/19 25 12/03/2024 CBC WITH DIFFE RENTI AL/PL ATELE T lymphs (absolute) 1.4 x10e3 /uL 0.7-3. 1 normal Not Available [facility] ([facility]) [address] [place], [address], 12/04/2024 10:07:56 12/03/19 25 12/03/2024 CBC WITH DIFFE RENTI AL/PL ATELE T monocytes(ab solute) 0.5 x10e3 /uL 0.1-0. 9 normal Not Available [facility] ([facility]) [address] [place], [address], 12/04/2024 10:07:56 12/03/19 25 12/03/2024 CBC WITH DIFFE RENTI AL/PL ATELE T eos (absolute) 0.2 x10e3 /uL 0.0-0. 4 normal Not Available [facility] ([facility]) [address] [place], [address], 12/04/2024 10:07:56 12/03/19 25 12/03/2024 CBC WITH DIFFE RENTI AL/PL ATELE T baso (absolute) 0.0 x10e3 /uL 0.0-0. 2 normal Not Available [facility] ([facility]) [address] [facility], [place], [address], 12/04/2024 10:07:56 12/03/19 25 12/03/2024 CBC WITH DIFFE RENTI AL/PL ATELE T immature granulocytes 0 % not estab. Not Available [facility] ([facility]) [address] [facility], [place], [address], 12/04/2024 10:07:56 12/03/19 25 12/03/2024 CBC WITH DIFFE RENTI AL/PL ATELE T immature grans (abs) 0.0 x10e3 /uL 0.0-0. 1 Not Available [facility] ([facility]) [address] [facility], [place], [address], 12/04/2024 10:07:56 12/03/19 25 12/03/2024 CBC WITH DIFFE RENTI AL/PL ATELE T NRBC RECRUITING COORDINATOR Not Available [facility] ([facility]) [address] [facility], [place], [address], 12/04/2024 10:07:56 12/03/19 25 12/03/2024 CBC WITH DIFFE RENTI AL/PL ATELE T hematology comments: RECRUITING COORDINATOR Not Available [facility] ([facility]) [address] [facility], [place], [address], 12/04/2024 10:07:56 12/03/19 25 12/03/2024 UA/M W/RFL X CULTU RE, ROUTI NE specific gravity >=1.03 0 1.005- 1.030 abnormal Not Available [facility] ([facility]) [address] [place], [address], 12/04/2024 10:07:56 12/03/19 25 12/03/2024 UA/M W/RFL X CULTCM MELO NE pH 5.5 5.0-7. 5 normal Not Available [facility] ([facility]) [address] [place], [address], 12/04/2024 10:07:56 12/03/19 25 12/03/2024 UA/M W/RFL X CULTHector RECM NE urine-color Yellow yellow Not Available [facility] ([facility]) [address] [place], [address], 12/04/2024 10:07:56 12/03/19 25 12/03/2024 UA/M W/RFL X CHRISTIAN RECM NE appearance Cloudy clear abnormal Not Available [facility] ([facility]) [address] [place], [address], 12/04/2024 10:07:56 12/03/19 25 12/03/2024 UA/M W/RFL X CHRISTIAN RECM WBC esterase Negati ve negati ve Not Available [facility] ([facility]) [address] [place], [address], 12/04/2024 10:07:56 12/03/19 25 12/03/2024 UA/M W/RFL X CM BECKER protein Trace negati ve/tra ce Not Available [facility] ([facility]) [address] [place], [address], 12/04/2024 10:07:56 12/03/19 25 12/03/2024 UA/M W/RFL X CHRISTIAN RECM glucose 3+ negati ve abnormal Not Available [facility] ([facility]) [address] [place], [address], 12/04/2024 10:07:56 12/03/19 25 12/03/2024 UA/M W/RFL X CULTU RE, ROUTI NE ketones Negati ve negati ve Not Available [facility] ([facility]) [address] [place], [address], 12/04/2024 10:07:56 12/03/19 25 12/03/2024 UA/M W/RFL X CULTU RE, ROUTI NE occult blood Negati ve negati ve Not Available [facility] ([facility]) [address] [place], [address], 12/04/2024 10:07:56 12/03/19 25 12/03/2024 UA/M W/RFL X CULTU RE, ROUTI NE bilirubin Negati ve negati ve Not Available [facility] ([facility]) [address] [place], [address], 12/04/2024 10:07:56 12/03/19 25 12/03/2024 UA/M W/RFL X CULTU RE, ROUTI NE urobilinogen ,semi-qn 0.2 mg/dL 0.2-1. 0 normal Not Available [facility] ([facility]) [address] [place], [address], 12/04/2024 10:07:56 12/03/19 25 12/03/2024 UA/M W/RFL X CULTU RE, ROUTI NE nitrite, urine Negati ve negati ve Not Available [facility] ([facility]) [address] [place], [address], 12/04/2024 10:07:56 12/03/19 25 12/03/2024 UA/M W/RFL X CULTU RE, ROUTI NE microscopic examination Commen t Tho dee ws if indic ated. Not Available [facility] ([facility]) [address] [place], [address], 12/04/2024 10:07:56 12/03/19 25 12/03/2024 UA/M W/RFL X CULTU RE, ROUTI NE microscopic examination See below: Micro scopi c was indic ated and was perfo rmed. Not Available [facility] ([facility]) [address] [facility], [place], [address], 12/04/2024 10:07:56 12/03/19 25 12/03/2024 UA/M W/RFL X CULTU RE, ROUTI NE WBC None seen /hpf 0 - 5 Not Available [facility] ([facility]) [address] [facility], [place], [address], 12/04/2024 10:07:56 12/03/19 25 12/03/2024 UA/M W/RFL X CULTU RE, ROUTI NE RBC None seen /hpf 0 - 2 Not Available [facility] ([facility]) [address] [facility], [place], [address], 12/04/2024 10:07:56 12/03/19 25 12/03/2024 UA/M W/RFL X CULTU RE, ROUTI NE epithelial cells (non renal) None seen /hpf 0 - 10 Not Available [facility] ([facility]) [address] [facility], [place], [address], 12/04/2024 10:07:56 12/03/19 25 12/03/2024 UA/M W/RFL X CULTU RE, ROUTI NE epithelial cells (renal) RECRUITING COORDINATOR Not Available [facility] ([facility]) [address] [facility], [place], [address], 12/04/2024 10:07:56 12/03/19 25 12/03/2024 UA/M W/RFL X CULTU RE, ROUTI NE casts None seen /lpf none seen Not Available [facility] ([facility]) [address] [facility], [place], [address], 12/04/2024 10:07:56 12/03/19 25 12/03/2024 UA/M W/RFL X CULTU RE, ROUTI NE cast type RECRUITING COORDINATOR Not Available [facility] ([facility]) [address] [facility], [place], [address], 12/04/2024 10:07:56 12/03/19 25 12/03/2024 UA/M W/RFL X CULTU RE, ROUTI NE crystals RECRUITING COORDINATOR Not Available [facility] ([facility]) [address] [facility], [place], [address], 12/04/2024 10:07:56 12/03/19 25 12/03/2024 UA/M W/RFL X CULTU RE, ROUTI NE crystal type RECRUITING COORDINATOR Not Available [facility] ([facility]) [address] [facility], [place], [address], 12/04/2024 10:07:56 12/03/19 25 12/03/2024 UA/M W/RFL X CULTU RE, ROUTI NE mucus threads RECRUITING COORDINATOR Not Available [facility] ([facility]) [address] [facility], [place], [address], 12/04/2024 10:07:56 12/03/19 25 12/03/2024 UA/M W/RFL X CULTU RE, ROUTI NE bacteria None seen none seen/f ew Not Available [facility] ([facility]) [address] [facility], [place], [address], 12/04/2024 10:07:56 12/03/19 25 12/03/2024 UA/M W/RFL X CULTU RE, ROUTI NE yeast RECRUITING COORDINATOR Not Available [facility] ([facility]) [address] [facility], [place], [address], 12/04/2024 10:07:56 12/03/19 25 12/03/2024 UA/M W/RFL X CULTU RE, ROUTI NE trichomonas RECRUITING COORDINATOR Not Available [facility] ([facility]) [address] [facility], [place], [address], 12/04/2024 10:07:56 12/03/19 25 12/03/2024 UA/M W/RFL X CULTU RE, ROUTI NE comment RECRUITING COORDINATOR Not Available [facility] ([facility]) [address] [facility] [place], [address], 12/04/2024 10:07:56 12/03/19 25 12/03/2024 UA/M W/RFL X CULTU RE, ROUTI NE urinalysis reflex Commen t This speci men will not refle x to a Urine Cultu re. Not Available [facility] ([facility]) [address] [facility] [place], [address], 12/04/2024 10:07:56 12/03/19 25 12/03/2024 RENAL PANEL (10) glucose 128 mg/dL 70-99 above high normal Not Available [facility] ([facility]) [address] [facility] [place], [address], 12/04/2024 10:07:57 12/03/19 25 12/03/2024 RENAL PANEL (10) BUN 19 mg/dL 8-27 normal Not Available [facility] ([facility]) [address] [place], [address], 12/04/2024 10:07:57 12/03/19 25 12/03/2024 RENAL PANEL (10) creatinine 1.80 mg/dL 0.76-1 .27 above high normal Not Available [facility] ([facility]) [address] [facility] [place], [address], 12/04/2024 10:07:57 12/03/19 25 12/03/2024 RENAL PANEL (10) eGFR 41 mL/mi n/1.7 3 >59 below low normal Not Available [facility] ([facility]) [address] [place], [address], 12/04/2024 10:07:57 12/03/19 25 12/03/2024 RENAL PANEL (10) BUN/creatini ne ratio 11 10-24 normal Not Available [facility] ([facility]) [address] [facility] [place], [address], 12/04/2024 10:07:57 12/03/19 25 12/03/2024 RENAL PANEL (10) sodium 138 mmol/ L 134-14 4 normal Not Available [facility] ([facility]) [address] [facility] [place], [address], 12/04/2024 10:07:57 12/03/19 25 12/03/2024 RENAL PANEL (10) potassium 4.2 mmol/ L 3.5-5. 2 normal Not Available [facility] ([facility]) [address] [facility] [place], [address], 12/04/2024 10:07:57 12/03/19 25 12/03/2024 RENAL PANEL (10) chloride 102 mmol/ L 96-106 normal Not Available [facility] ([facility]) [address] [facility] [place], [address], 12/04/2024 10:07:57 12/03/19 25 12/03/2024 RENAL PANEL (10) carbon dioxide, total 19 mmol/ L 20-29 below low normal Not Available [facility] ([facility]) [address] [facility] [place], [address], 12/04/2024 10:07:57 12/03/19 25 12/03/2024 RENAL PANEL (10) calcium 9.4 mg/dL 8.6-10 .2 normal Not Available [facility] ([facility]) [address] [facility] [place], [address], 12/04/2024 10:07:57 12/03/19 25 12/03/2024 RENAL PANEL (10) phosphorus 3.8 mg/dL 2.8-4. 1 normal Not Available [facility] ([facility]) [address] [facility], [place], [address], 12/04/2024 10:07:57 12/03/19 25 12/03/2024 RENAL PANEL (10) albumin 4.3 g/dL 3.9-4. 9 normal Not Available [facility] ([facility]) [address] [facility], [place], [address], 12/04/2024 10:07:57 12/03/19 25 12/03/2024 PROT+ CREAT U (RAND OM) creatinine, urine 142.3 mg/dL not estab. normal Not Available [facility] ([facility]) [address] [facility] [place], [address], 12/04/2024 10:07:57 12/03/19 25 12/03/2024 PROT+ CREAT U (RAND OM) protein,tota l,urine 11.6 mg/dL not estab. normal Not Available [facility] ([facility]) [address] [facility], [place], [address], 12/04/2024 10:07:57 12/03/19 25 12/03/2024 PROT+ CREAT U (RAND OM) protein/crea t ratio 82 mg/g_ creat 0-200 Not Available [facility] ([facility]) [address] [facility], [place], [address], 12/04/2024 10:07:57 12/03/1912/03/2024 VITAM IN D, 25-HY DROXY vitamin D, 25-hydroxy 37.9 NG/mL 30.0-1 00.0 Vitam in D defic iency has been defin ed by the Insti tute of Medic ine and an Endoc rine Socie ty pract ice guide line as a level of serum 25-OH vitam in D less than 20 ng/mL (1,2) . The Endoc rine Socie ty went on to [facility] er defin e vitam in D insuf ficie ncy as a level betwe en 21 and 29 ng/mL (2). 1. IOM (Inst itute of Medic ine). 2010. Dieta ry refer ence intak es for calci um and D. Dionicio hernandez [place]: [facility] . 2. Marshall sunshine [place], Elena knight [place], [place] off-F rukhsana i WIGGINS, et al. Evalu ation , treat ment, and preve ntion of vitam in D defic iency : an Endoc rine Socie ty clini logan pract ice guide line. JCEM. 2010; 96(7) :1911 -30. Not Available [facility] ([facility]) [address] [place], [address], 12/04/2024 10:07:58 12/03/19 25 12/04/2024 PTH, INTAC T PTH, intact 58 pg/mL 15-65 normal Not Available [facility] ([facility]) [address] [place], [address], 12/04/2024 10:07:58 Result Notes None recorded. Problems Name Problem SNOMED Code Status Onset Date Resolution Date Notes Provider Name and Address Organization Details Recorded Time Type 2 diabetes mellitus 96421858 Active Ivy hair, - [facility] 11:29:28 Kidney stone 73675898 Active Ivy hair, - [facility] 11:29:39 Hyperlipidemi a 59135741 Active Ivy hair, - [facility] 11:29:55 Essential hypertension 15389003 Active Ivy hair, [place] - [facility] 11:30:12 History of placement of stent for coronary artery disease 613489618 Active Ivy hair, [place] - [facility] 11:30:58 Problem Notes None recorded. Procedures Surgical History Date Name Laterality Status Provider Name and Address Organization Details Recorded Time Arthroscopic Surgery completed Risa Del Valle - [facility] 08/08/2024 11:19:59 dental surgery completed Ivy Del Valle - [facility] 11:19:59 Stress test completed Ivy Del Valle - [facility] 08/08/2024 11:19:59 [facility] 11:19:59 [facility]/08/2024 11:19:59 Knee [facility] 11:19:59 Gastrointestinal [facility] 11:19:59 Cardiac Surgery completed Ivy RIVERA [facility] 08/08/2024 11:20:00 Imaging Results None recorded. Procedure Notes None recorded. Medical Equipment None Reported. Allergies No known drug allergies Medications Name Sig Start Date Stop Date Status Note LastModified by Organization Details LastModified Time atorvastatin 40 mg tablet Take 1 tablet every day by oral route. active Not Available Not Available No t Available clopidogrel 75 mg tablet Take 1 tablet every day by oral route. active Not Available Not Available No t Available amlodipine 5 mg tablet Take 1 tablet(s) every day by oral route. 2024 active Not Available Not Available Not Avai lable sotalol 120 mg tablet Take 1 tablet twice a day by oral route. active Not Available Not Available No t Available potassium citrate ER 10 mEq (1,080 mg) tablet,exten ded release Take 1 tablet twice a day by oral route. active Not Available Not Available No t Available nitroglyceri n 0.[address] 1 tablet as needed by sublingual route. active Not Available Not Available No t Available aspirin 81 mg tablet Take 1 tablet every day by oral route. active Not Available Not Available No t Available albuterol sulfate HFA 90 mcg/actuatio n aerosol inhaler Inhale 2 puffs every 4 hours by inhalation route. active Not Available Not Available No t Available Glucosamine Chondroitin Maximum Strength 500 mg-400 mg capsule Take 4 capsules every day by oral route. active Not Available Not Available No t Available Cialis 20 mg tablet Take 1 tablet every day by oral route. active Not Available Not Available No t Available iron one daily active Not Available Not Taya ilable Not Available multivitamin 1 daily active Not Available Not Available Not Available Scott Cranear U-100 Insulin 100 unit/mL (3 mL) subcutaneous pen Inject 35 units every day by subcutaneou s route at bedtime. active Not Available Not Available No t Available Jardiance 10 mg tablet Take 1 tablet every day by oral route. active Not Available Not Available No t Available Accu-Chek Guide test strips Take 1 strip twice a day by miscell. route. 2024 active Not Available Not Available Not Avai lable cyanocobalam in (vitamin B-12) 1,000 mcg capsule Take 1 capsule every day by oral route. active Not Available Not Available No t Available Ozempic 2 mg/dose (8 mg/3 mL) subcutaneous pen injector Inject 2 mg every week by subcutaneou s route. 2024 active Not Available Not Available Not Avai lable Vitals Date Recorded Body height Body mass index (BMI) Body weight Respiratory rate Body temperature Heart rate Oxygen saturation Oxygen saturation in Arterial blood by Pulse oximetry Pain severity - 0-10 verbal numeric rating [Score] - Reported Systolic And Diastolic Provider Name and Address Organization Details Last Updated DateTime 5 180.34 cm 34.4 kg/m2 717698. 32 g 20 /min 98.1 [degF] 50 /min 99 % 99 % 0 124/78 mm[Hg] Ivy Del Valle [place] - [facility] 5 08:37:46 Social History Question Answer Notes LastModified by Organizat ion Details LastModified Time Tobacco Smoking Status Never Smoker Ivy Del Valle null, [place] - [facility] 08/08/2024 11:19:59 Do You Have An Advance Directive? Yes Information not available 08/08/2024 How Many Years Have You Consumed Alcohol? 50 Information not available 08/08/2024 Is Blood Transfusion Acceptable In An Emergency? Yes Information not available 08/08/2024 What Is Your Level Of Caffeine Consumption? Occasional Information not available 08/08/2024 How Much Tobacco Do You Chew? None Information not available 08/08/2024 Are You Deaf Or Do You Have Serious Difficulty Hearing? No Information not available 08/08/2024 Which Illicit Or Recreational Drugs Have You Used? Decline To Answer Information not available 08/08/2024 What Is The Highest Grade Or Level Of School You Have Completed Or The Highest Degree You Have Received? [id number] Information not available 08/08/2024 How Many Years Have You Used Illicit Or Recreational Drugs? 0 Information not available 08/08/2024 What Was The Date Of Your Most Recent Tobacco Screening? 08/08/2024 Information not available 08/08/2024 Do You Use Protection Against STDs? No Information not available 08/08/2024 What Is Your Relationship Status? Information not available 08/08/2024 Do You Use Your Seat Belt Or Car Seat Routinely? Yes Information not available 08/08/2024 Are You Sexually Active? Yes Information not available 08/08/2024 Do You Have Smoke And Carbon Monoxide Detectors In Your Home? Yes Information not available 08/08/2024 Are You Passively Exposed To Smoke? No Information no t available 08/08/2024 Do You Use Sunscreen Routinely? No Information not available 08/08/2024 Has Tobacco Cessation Counseling Been Provided? No Information not available 08/08/2024 Sex: Male Functional Status Question Answer Note LastModified by Organizat ion Details LastModified Time Do you use any illicit or recreational drugs? No Information not available 08/08/2024 What is your level of alcohol consumption? Occasional Information not available 08/08/2024 Do you or have you ever used smokeless tobacco? Former smokeless tobacco user Information not available 08/08/2024 Are you currently employed? Yes Information not available 08/08/2024 Are you able to care for yourself independently? Yes Information not available 08/08/2024 What is your occupation? [employer] Information not available 08/08/2024 Do you or have you ever used e-cigarettes or vape? Never used electronic cigarettes Information not available 08/08/2024 What is your exercise level? Occasional Information not available 08/08/2024 Mental Status Question Answer Note LastModified by Organization D etails LastModified Time Do you feel stressed (tense, restless, nervous, or anxious, or unable to sleep at night)? [id number] Information not available 08/08/2024 Family History Relationship Description Onset Age of this Age Resolved Age Notes LastModified by Organization Details LastModified Time Mother Depressive disorder [email or web address] Not available 2024 11:19:59 Father Depressive disorder [email or web address] Not available 2024 11:19:59 Medical History Condition Response Diabetes Y Heart Problems Y Muscle, Joint, or Bone Problems Y Gout Y Obesity Y Degenerative Disc Disease Y Arthritis Y Kidney Stones Y Insomnia Y Kidney or Bladder Problems Y Asthma Y Fracture Y Neuropathy Y Heart Disease Y Hypertension Y Past Encounters Encounter ID Performer Location Encounter Start Date Encounter Closed Date Diagnosis/Indication Diagnosis SNOMED-CT Code Diagnosis ICD10 Code Diagnosis IMO Codes Diagnosis Note [id number] Cristela Marmolejo APRN [address] [address] 12/02/2024 07:48:10 12/02/2024 09:22:23 Chronic kidney disease stage 3 501592504 N18.30 [id number] Obese class I 7014538726 78866 E66.811 Z68.34 5531281 Body mass index 30+ - obesity 791656564 Z68.34 [id number] [facility] 51695877 R00 .1 94946 informed pt if he has any symptoms to go to [facility]- follow up with cardiology to see if holding med or decreasing dose. monitor close Health Concerns Section Related Observation LastModified by Organization Detai ls LastModified Time None Recorded Concern Status LastModified by Organization Details LastModified Time None Recorded Payers Encounter Date Sequence Insurance Name Policy Number Policy Marquez Covered Member ID Marquez Member ID Guarantor Name 12/02/2024 1 MEDICARE-[place] (MEDICARE[place] Quincy Joyce [id number] Quincy Joyce 12/02/2024 2 AARP (MEDICARE SUPPLEMENT) [facility] [id number] [facility] Notes Date Note Type Note Provider Name and Address Organization Details Recorded Time 12/02/2024 text/html ROS as noted in the HPI 64 yr old male presents for labs for nephrology. pt states he is feeling fine. hr low but pt states this is normal for him. Cristela Marmolejo, TAY [address], [place], [address], [place] [facility] 12/02/2024 09:07:22
--- NOTE | 2025-02-20 06:52 | CT_ITS ---
FINAL REPORT TECHNIQUE: Axial images through the abdomen and pelvis were performed without contrast.This study was performed with techniques to keep radiation doses as low as reasonably achievable, (ALARA). Individualized dose reduction techniques using automated exposure control or adjustment of mA and/or kV according to the patient's size were employed. CLINICAL HISTORY: ABDOMEN PAIN. HISTORY KIDNEY STONES FINDINGS: ABDOMEN: The lung bases are clear. The heart size is normal. Limited images of the liver are unremarkable. Gallbladder is present. The spleen is normal. No adrenal mass is identified. The aorta is normal in caliber. There is no significant free fluid or adenopathy. There is bilateral nephrolithiasis with multiple calcified stones measuring up to 4 mm in the lower pole of the left kidney. There is no hydronephrosis. There are postoperative changes of gastric banding. PELVIS: The appendix is enlarged, likely a normal variant. No surrounding inflammatory changes seen. The urinary bladder is unremarkable. There is no significant free fluid or adenopathy. Pelvic bowel loops are unremarkable. There is a small right inguinal hernia containing fat. IMPRESSION: Bilateral nephrolithiasis without hydronephrosis. Reviewed, Interpreted and Dictated by Paolo Santillan MD Transcribed by Bre Santos Authenticated and [facility]
--- OUTSIDE RECORDS SUMMARY | 2025-02-20 06:52 | XMS_ITS | Encounter Summary ---
Author Organization Healthcare Address [address] [place] [address] Care Team Providers Care Chief Counsel Name Role Phone Cristela Marmolejo APRN Primary Care Provider [phone] Encounter Details Date Type Department Care Team (Latest Contact Info) Description 12/24/2024 Travel Social History Tobacco Use Types Packs/Day Years [...] on file documented as of this encounter Functional Status * Over the [...] much Not at all 12/24/2024 1:16 PM RADHAT Apolonia Eller Feeling tired or having morelia [...] television Not at all 12/24/2024 1:16 PM EDT Apolonia Eller Moving or speaking so slowly [...] difficult at all 12/24/2024 1:16 PM EDT Will Apolonia brenner documented as of this encounter Plan of Treatment Upcoming Encounters Date Type Department Care Team (Late st Contact Info) Description 07/10/2025 12:40 PM EDT Office Visit [facility] [address] [place] [address] Deni Lyman MD [address] [place] [id number] documented as of this encounter Visit Diagnoses Not on filedocumented in this encounter Additional Health Concerns Assessment Noted Time PHQ-9 Depression Total Score: 0 12/25/19 25 1:16 PM EDT A fall risk assessment has been complete d for the patient 12/24/2024 1:16 PM EDT A Body Mass Index follow-up plan has been documented for the patient 12/25/2024 2:16 PM EDT documented as of this encounter Care Teams Chief Counsel Relationship Specialty Start Date End Date Cristela Marmolejo APRN [address] [place] [address] [place] [address] PCP - General 10/01/24 documented as of this encounter
--- OUTSIDE RECORDS SUMMARY | 2025-02-20 06:52 | XMS_ITS | Patient Health Record ---
Author Organization [facility] Boris calzada Billing Info Address [address] [place] [address] Care Team Providers Care Curtain Roller Assembler Name Role Phone NAVIN GONZALEZ [phone] Allergies No Known Allergies Results Component Value Reference Range Notes Iron and TIBC ([id number]) Reviewed date:04/25/2024 12:10:33 PM Interpretation: Performing Lab:[facility], [address] [place] [id number], Phone - [phone], Director - PhDAfiai Notes/Report: PATIENT IS FASTING Iron Bind.Cap.(TIBC) 306 250-450 ug/dL UIBC 253 111-343 ug/dL Iron 53 38-169 ug/dL Iron Saturation 17 15-55 % Hemoglobin A1c ([id number]) Reviewed date:04/25/2024 12:10:33 PM Interpretation: Performing Lab:[facility], [address], [place] [id number], Phone - [phone], Director - PhDR[facility] Notes/Report: PATIENT IS FASTING Hemoglobin A1c 7.4 4.8-5.6 % . Prediabetes: 5.7 - 6.4 Diabetes: >6.4 Glycemic control for adults with diabetes: <7.0 Urinalysis, Routine ([id number]) Reviewed date:04/25/2024 12:10:33 PM Interpretation: Performing Lab:[facility], [address], [place] [id number], Phone - [phone], Director - [facility] Notes/Report: PATIENT IS FASTING Specific [place] 1.019 1.005-1.030 pH 6.0 5.0-7.5 Urine-Color Yellow Yellow Appearance Clear Clear WBC Esterase Negative Negative Protein Trace Negative/Trace Glucose Negative Negative Ketones Negative Negative Occult Blood Negative Negative Bilirubin Negative Negative Urobilinogen,Semi-Qn 0.2 0.2-1.0 mg/dL Nitrite, Urine Negative Negative Microscopic Examination Micr oscopic not indicated and not performed. Ferritin ([id number]) Reviewed date:04/25/2024 12:10:33 PM Interpretation: Performing Lab:[facility] [id number], Phone - [phone], Director - [facility] Notes/Report: PATIENT IS FASTING Ferritin 31 30-400 ng/mL CBC With Differential/Platel et ([id number]) Reviewed date:04/25/2024 12:10:33 PM Interpretation: Performing Lab:[facility] [id number], Phone - [phone], Director - [facility] Notes/Report: PATIENT IS FASTING WBC 5.9 3.4-10.8 x10E3/uL RBC 4.15 4.14-5.80 x10E6/uL Hemoglobin 11.8 13.0-17.7 g/dL Hematocrit 37.8 37.5-51.0 % MCV 91 79-97 fL MCH 28.4 26.6-33.0 pg MCHC 31.2 31.5-35.7 g/dL RDW 16.2 11.6-15.4 % Platelets 282 150-450 x10E3/uL Neutrophils 72 Not Estab. % Lymphs 18 Not Estab. % Monocytes 8 Not Estab. % Eos 2 Not Estab. % Basos 0 Not Estab. % Immature Cells COLLECTIONS OFFICER Neutrophils (Absolute) 4.3 1.4-7.0 x10E3/uL Lymphs (Absolute) 1.0 0.7-3.1 x10E3/uL Monocytes(Absolute) 0.4 0.1-0.9 x10E3/uL Eos (Absolute) 0.1 0.0-0.4 x10E3/uL Baso (Absolute) 0.0 0.0-0.2 x10E3/uL Immature Granulocytes 0 Not Estab. % Immature Grans (Abs) 0.0 0.0-0.1 x10E3/uL NRBC COLLECTIONS OFFICER Hematology Comments: COLLECTIONS OFFICER Urine Culture, Routine ([id number]) Reviewed date:04/25/2024 12:10:33 PM Interpretation: Performing Lab:[address] [id number], Phone - [phone], Director - Rosie Notes/Report: PATIENT IS FASTING PATIENT IS FASTING Urine Culture, Routine Final report PATIE NT IS FASTING Result 1 Culture shows less than 10,000 colony forming units of bacteria per milliliter of urine. This colony count is not generally considered to be clinically significant. Lipid Panel ([id number]) Reviewed date:04/25/2024 12:10:33 PM Interpretation: Performing Lab:[address] [id number], Phone - [phone], Director - Rosie Notes/Report: PATIENT IS FASTING Cholesterol, Total 94 100-199 mg/dL Triglycerides 135 0-149 mg/dL HDL Cholesterol 38 >39 mg/dL VLDL Cholesterol Marcelino 24 5-40 mg/dL LDL Chol Calc ([facility]) 32 0-99 mg/dL LDL Calc Comment: COLLECTIONS OFFICER CMP14 + eGFR ([id number]) Reviewed date:04/25/2024 12:10:33 PM Interpretation: Performing Lab:[address] [id number], Phone - [phone], Director - [facility] Notes/Report: PATIENT IS FASTING Glucose 91 70-99 mg/dL BUN 15 8-27 mg/dL Creatinine 1.69 0.76-1.27 mg/dL eGFR 44 >59 mL/min/1.73 BUN/Creatinine Ratio 9 10-24 Sodium 139 134-144 mmol/L Potassium 4.6 3.5-5.2 mmol/L Chloride 105 96-106 mmol/L Carbon Dioxide, Total 22 20-29 mmol/L Calcium 9.0 8.6-10.2 mg/dL Protein, Total 6.0 6.0-8.5 g/dL Albumin 3.8 3.9-4.9 g/dL Globulin, Total 2.2 1.5-4.5 g/dL Bilirubin, Total 0.3 0.0-1.2 mg/dL Alkaline Phosphatase 85 44-121 IU/L AST (SGOT) 23 0-40 IU/L ALT (SGPT) 13 0-44 IU/L Reason For Referral No Information Medications Medication SIG (Take, Route, Frequency, Duration) Notes Start Date End Date Status Droplet Pen [place] 32G X 4 MM USE DIRECTED ONE TIME DAILY for 90 Active Amlodipine Besylate 5 MG TAKE ONE TABLET BY MOUTH ONE TIME DAILY for 90 days Active FreeStyle Lite Test - Use as directed to check blood glucose In Vitro three times a day. Dx: E11.9 for 90 days 06/23/2024 Active Nitroglycerin 0.4 MG as directed Subling ual as needed Active Accu-Chek Guide w/Device as directed for 30 days 0 07/03/2024 Active Magnesium Chloride-Calcium 64-106 MG as directed Orally Active Insulin Glargine-yfgn 100 UNIT/ML INJECT 35 UNITS UNDER THE SKIN AT BEDTIME for Active Cialis 20 MG 1 tablet as needed O rally Once a day for 90 days Active FreeStyle Lite w/Device Use as directed to check blood glucose three times a day. Dx: E11.9 for 30 days 06/23/2024 Active Accu-Chek Georgina Plus w/Device Use as directed to check blood glucose in vitro three times a day. Dx: E11.9 for 30 days 07/01/2024 Active Atorvastatin Calcium 40 MG 1 tablet Oral ly Once a day Active FreeStyle Lancets - Use as directed to c heck blood glucose in vitro three times a day. Dx: E11.9 for 90 days 06/23/2024 Active Sotalol HCl 120 MG 1 tablet Orally twic e a day Active Accu-Chek Multiclix Lancets Use to check blood glucose three times a day. Dx: E11.9 for 90 days 07/01/2024 Active Multivitamin Adults 50+ - as directed Orally Active Accu-Chek Georgina Plus - Use to check bloo d glucose In Vitro three times a day. Dx: E11.9 for 90 days 07/01/2024 Active Aspir-Low 81 MG 1 tablet Orally Once a day Active Clopidogrel Bisulfate 75 MG 1 tablet Ora lly Once a day Active Ranolazine ER 500 MG 1 tablet Orally Twi ce a day Active Ozempic (2 MG/DOSE) 8 MG/3ML Inject 2mg Subcutaneous once a week for 84 days 04/14/2024 Active Albuterol Sulfate HFA 108 (90 Base) MCG/ACT INHALE ONE PUFF BY MOUTH EVERY 4 HOURS NEEDED for 33 Active Ozempic (1 MG/DOSE) 4 MG/3ML INJECT 2MG UNDER THE SKIN EVERY WEEK Subcutaneous weekly for 30 days Active Potassium Citrate Ac tive Immunizations Vaccine Route Administration Date Status Comme nts PNEUMOCOCCAL - 23 POLY (PNEUMOVAX 23) Unknown 03/01/2018 Administered PNEUMOCOCCAL - 23 POLY (PNEUMOVAX 23) Unknown 05/05/2020 Administered PNEUMOCOCCAL 13 CONJ ([id number]) Unknown 09/27/2014 Administered per pt recall FLU (Past vaccine of unknown type) Unknown 09/27/2016 Refused FLU (Past vaccine of unknown type) Unknown 01/31/2017 Administered FLU (Past vaccine of unknown type) Unknown 01/12/2021 Administered PNEUMOCOCCAL (Past vaccine o f unknown type) Unknown 01/25/2013 Administered zFLU 3V (AFLURIA), 5 YRS+, N O PRES - ALL PAYORS Unknown 01/17/2018 Administered zFLU 4V (FLUZONE QUAD), 6MO+ (0.5 ML), NO PRES - ALL PAYORS Unknown 11/27/2019 Administered zFLU 4V (FLUZONE QUAD), 6MO+ (0.5 ML), WITH PRES - ALL PAYORS Unknown 11/23/2018 Administered zCOVID-19 (Moderna) 12+yrs, NO PRES Unknown 06/05/2020 Administered zCOVID-19 (Moderna) 12+yrs, NO PRES Unknown 07/02/2020 Administered zCOVID-19 (Comirnaty ) 12+yrs, NO PRES Unknown 12/22/2023 Administered FLU 3V (FLUAD TRI), 65yrs+, NO PRES - ALL PAYORS Unknown 12/22/2023 Administered Social History Tobacco Status: Question Answer Notes Patient is a non tobacco user Problems Problem Type SNOMED Code ICD Code Onset Dates Problem Status W/U Status Risk Notes Problem 778988846 Morbid (severe) obesity due to excess calories (E66.01) Active confirmed Problem 69867281 Coronary atherosclerosis due to calcified coronary lesion (I25.84) Active confirmed Problem 309345959 Low back pain (M54.5) Active confirme d Problem 8350034 Benign essential hypertension (I10) Active confirmed Problem Essential hypertension (98297360) Essential hypertension (I10) Active confirmed Problem 74995447 Bradycardia (R00.1) Active confirmed Problem 676116959785341 Obesity (BMI 30.0-34.9) (E66.9) Active confirmed Problem 517617561 CKD (chronic kid inderjit disease) stage 3, GFR 30-59 ml/min (N18.3) Active confirmed Problem 013498076 Stented coronary artery (Z95.5) Active confirmed Problem 14728861 Hiatal hernia (K44.9) Active confirmed Problem 888437089 History of coron fernandez artery disease (Z86.79) Active confirmed Problem 079832393 BMI 35.0-35.9,ad ult (Z68.35) Active confirmed Problem 474325037 Cervical radicul ar pain (M54.12) Active confirmed Problem 7530600803544946 Recurrent nephrolithiasis (N20.0) Active confirmed Problem 134743864 Non-cardiac ches t pain (R07.89) Active confirmed Problem 593597281 Insomnia, unspec ified type (G47.00) Active confirmed Problem 300110193 Erectile dysfunc tion, unspecified erectile dysfunction type (N52.9) Active confirmed Problem 634861292 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) Active confirmed Problem 058770615 Uncomplicated as thma, unspecified asthma severity (J45.909) Active confirmed Problem 371129707 Other urinary incontinence (N39.498) Active confirmed Problem 792022313 Type 2 diabetes mellitus without complication, without long-term current use of insulin (E11.9) Active confirmed Problem 04277529 Hypercholesterol emia (E78.00) Active confirmed Problem 96716285 Gastric band malfunction (K95.09) Active confirmed Problem 470743538 Stage 3a chronic kidney disease (N18.31) Active confirmed Encounters Encounter Location Date Provider [id number] [address] [place] [address] 03/19/2024 NAVIN GONZALEZ Primary erectile dysfunction N52.[id number] [address] 04/14/2024 NAVIN GONZALEZ Type 2 diabetes dell itus without complication, without long-term current use of insulin E11.9 [facility] [address] [place], [place] [id number] 06/16/2024 NAVIN GONZALEZ [id number] [address] 06/30/2024 NAVIN GONZALEZ [id number] [address] 07/02/2024 NAVIN GONZALEZ Type II or unspecifi ed type diabetes mellitus without mention of complication, not stated as uncontrolled E11.9 [facility] [address] [place], [place] [address] 08/11/2024 NAVIN GONZALEZ [id number] [address] 10/07/2024 NAVIN GONZALEZ [id number] [address] 05/13/2024 NAVIN GONZALEZ Insomnia, unspecifie d type G47.00 ; Bradycardia R00.1 ; Erectile dysfunction, unspecified erectile dysfunction type N52.9 ; Hypercholesterolemia E78.00 ; Type 2 diabetes mellitus without complication, without long-term current use of insulin E11.9 and Essential hypertension I10 [id number] [place] [address] 08/12/2024 NAVIN GONZALEZ Type 2 diabetes dell itus without complication, without long-term current use of insulin E11.9 ; Benign essential hypertension I10 ; Coronary atherosclerosis due to calcified coronary lesion I25.84 ; Bradycardia R00.1 ; Insomnia, unspecified type G47.00 and Hypercholesterolemia E78.00 Assessments Encounter Date Diagnosis (ICD Code) Assessment Notes Treatment Notes Treatment Clinical Notes Section Notes 05/13/2024 Insomnia, unspecifie d type (ICD-10 - G47.00) 08/12/2024 Type 2 diabetes mellitus without complication, without long-term current use of insulin (ICD-10 - E11.9) 03/19/2024 Primary erectile dysfunction (ICD-10 - N52.9) 04/14/2024 Type 2 diabetes mellitus without complication, without long-term current use of insulin (ICD-10 - E11.9) 07/02/2024 Type II or unspecifi ed type diabetes mellitus without mention of complication, not stated as uncontrolled (ICD-10 - E11.9) 08/12/2024 Benign essential hypertension (ICD-10 - I10) 05/13/2024 Bradycardia (ICD-10 - R00.1) 05/13/2024 Erectile dysfunction , unspecified erectile dysfunction type (ICD-10 - N52.9) 08/12/2024 Coronary atherosclerosis due to calcified coronary lesion (ICD-10 - I25.84) 08/12/2024 Bradycardia (ICD-10 - R00.1) 05/13/2024 Hypercholesterolemia (ICD-10 - E78.00) 05/13/2024 Type 2 diabetes mellitus without complication, without long-term current use of insulin (ICD-10 - E11.9) 08/12/2024 Insomnia, unspecifie d type (ICD-10 - G47.00) 08/12/2024 Hypercholesterolemia (ICD-10 - E78.00) 05/13/2024 Essential hypertensi on (ICD-10 - I10) 05/13/2024 Other This report wa s dictated using [employer] software. There may be some inadvertently misspelled words or grammatical errors. 08/12/2024 Other This report wa s dictated using [employer] software. There may be some inadvertently misspelled words or grammatical errors. Plan Of Treatment Pending Test Test Name Order Date EKG-COMPLETE (10267) 01/16/2019 Future Test Test Name Order Date Basic Metabolic Panel(Q-39672) 2 LIPID PANEL W VLDL ([id number]) 02/07/2022 COMPREHENSIVE METABOLIC PANEL(Q-40355) 1 04/17/2022 CT-ABD/PELVIC, W-W/O CONTRAST (18120) COMPREHENSIVE METABOLIC PANEL(Q-24357) 0 11/20/2023 CBC (H/H, RBC, INDICES, WBC, PLT) (Q-175 9) 11/20/2023 HEMOGLOBIN A1c (Q-496) 11/20/2023 IRON, TIBC AND FERRITIN PANEL (Q-5616) 0 11/20/2023 LIPID PANEL, STANDARD (Q-7600) IRON, TIBC AND FERRITIN PANEL (Q-5616) 1 04/20/2023 Hemoglobin A1c (L-460544) 02/19/2024 CBC With Differential/Platelet (L-508226 ) 02/19/2024 Lipid Panel (L-[id number]) 02/19/2024 CMP14 + eGFR ([id number]) 02/19/2024 Hemoglobin A1c (L-799425) 05/13/2024 Insurance Providers Payer Name Payer Address Payer Phone Subscriber Number Group Number Insured Name Patient Relationship to Insured Coverage Start Date Coverage End Date [place]ICARE [place] PART B [address] [facility] YASMIN CEBALLOS [id number] Quincy Joyce Self - patient is the insured [facility] MEDICARE SUPP/1878 [address] [facility] [id number] Quincy Joyce Self - patient is the insured Medical (General) History Medical History History ICD Code Arthritis Asthma GERD Diabetes type 2 Hypertension Quadriceps muscle strain, unspecified la terality, initial encounter S76.119A Morbid Obesity Kidney Stones CKD Surgical History Surgery Date(Month/Year) Ureter Stents x 2 02/2023 Cataract Removal - Bilateral 06/2022 Arthoscopic Right Knee Surgery 06/2020 CTS left and right hand arthroscopic surgery both knees 2003 umbilical hernia repair Lap Band 2008 Hospitalization History Reason Date(Month/Year) Kidney Stones - [facility] 02/2023 1 Cardiac Stent - [place] 05/2022 [place] 06/2021 Heart concerns/ Chest pain 03/01/2018 [facility] ED-stung by bees 12/22/16
--- OUTSIDE RECORDS SUMMARY | 2025-02-20 06:54 | XMS_ITS | Clinical Summary ---
Author Organization Healthcare Address [address] [id number] Care Team Providers Care Usability Specialist Name Role Phone Cristela Marmolejo APRN Primary Care Provider [phone] Allergies No known active allergies Medications glucose blood (Accu-Chek Guide Test) test strip Take 1 strip twice a day by miscell. route. 08/09/19 25 Active ASPIRIN 81 MG chewable tablet Chew 1 tablet. Active Iron 18 MG/15ML liquid daily. Active Pediatric Multivitamins-Fl (MultiVitamin + Fluoride) 0.25 MG chewable tablet daily. Acti ve Lancet Devices (Autolet) lancing device Use to check blood glucose three times a day. Dx: E11.9 for 90 days 07/02/19 25 Active amLODIPine (Norvasc) 2.5 MG tablet amLODIPine Besylate Active semaglutide (Ozempic, 0.25 or 0.5 MG/DOSE,) 2 MG/1.5ML solution pen-injector inj. pen Ozempic Active ranolazine (Ranexa) 500 MG 12 hr tablet Take 1 tablet by mouth 2 times a day. Active aspirin (Aspir-Low) 81 MG EC tablet Take 1 tablet by mouth. Active atorvastatin (Lipitor) 10 MG tablet Atorvastatin Calcium Active clopidogrel (Plavix) 75 MG tablet Clopidogrel Bisulfate Active Magnesium Chloride-Calcium 64-106 MG tablet delayed-release Take by mouth. DIRECTED Active dextrose 5 % solution 1 mL with nitroglycerin 5 mcg/mL 0.25 mcg Nitroglycerin Active sotalol (Betapace) 120 MG tablet Take 1 tablet by mouth 2 times a day. Active nitroglycerin (Nitrostat) 0.[address] 1 tablet as needed by sublingual route. Active Multiple Vitamins-Minerals (Multivitamin Adults 50+) tablet Take by mouth. DIRECTED Active Lantus SoloStar 100 UNIT/ML injection pen Inject 35 units every day by subcutaneous route at bedtime. Active FREESTYLE LITE test strip Use as directed to check blood glucose In Vitro three times a day. Dx: E11.9 for 90 days 06/24/19 Active glucose blood (Accu-Chek Georgina Plus) test strip Use to check blood glucose In Vitro three times a day. Dx: E11.9 for 90 days 07/02/19 25 Active Jardiance 10 MG Take 1 tablet by mouth. Active Glucosamine-Chondro itin 500-400 MG capsule Take 4 capsules every day by oral route. Active Ozempic, 2 MG/DOSE, 8 MG/3ML solution pen-injector Inject 2 mg every week by subcutaneous route. 04/14/19 Active potassium citrate CR (Urocit-K-10) 10 mEq ER tabletIndications:C alcium nephrolithiasis Take 1 tablet by mouth 2 times a day. 90 tablet 3 12/25/19 Active Active Problems Problem Noted Date Diagnosed Date Calcium nephrolithiasis 12/25/2024 Stage 3b chronic kidney disease 12/25/2024 Type 2 diabetes mellitus wit h chronic kidney disease, without long-term current use of insulin 12/25/2024 Hypertensive chronic kidney disease with stage 1 through stage 4 chronic kidney disease, or unspecified chronic kidney disease 12/25/2024 Chronic kidney disease-mineral and bone disorder (CKD-MBD) 12/25/2024 Severe obesity (BMI 35.0-39.9) with comorbidity 12/24/2024 Encounters Date Type Department Care Team Description 01/23/2025 Telephone [facility] Nephrology, Bone & Mineral Metabolism [address] , [address] [place] [address] Deni Lyman MD [facility] requesting PA on Renal CT 12/24/2024 1:00 PM EDT Office Visit [facility] Nephrology, Bone & Mineral Metabolism [address], [address] [place] [address] Deni Lyman MD Calcium nephrolithiasis (Primary Dx); Stage 3b chronic kidney disease (CMS/HCC); Type 2 diabetes mellitus with chronic kidney disease, without long-term current use of insulin, unspecified CKD stage (CMS/HCC); Hypertensive chronic kidney disease with stage 1 through stage 4 chronic kidney disease, or unspecified chronic kidney disease; Chronic kidney disease-mineral and bone disorder (CKD-MBD) 12/24/2024 Travel from Last 3 Months Social History Tobacco [...] PM EDT Sexual Orientation Not on file Last Filed Vital Signs Vital Sign Reading [...] Mass Index 35.08 12/24/2024 1:16 PM EDT Plan of Treatment Upcoming Encounters Date Type Department Care Team (Late st Contact Info) Description 07/10/2025 12:40 PM EDT Office Visit [facility] [address] [place], [place] [address] Deni Lyman MD [address] [place] [phone] Health Maintenance Due Date Last Done Comments [facility]-Diabetes: Hemoglobin A1C 1958 [facility]-Hepatitis C Screening 1958 [facility]-Medicare Annual Wellness (AWV) 1958 [facility]-/Child/Adol SDOH Screenings 1958 Diabetes: Dental Exam 1968 [facility]- SDOH Screenings 1976 [facility]-Adult SDOH Screenings 1976 [facility]-DTaP,Tdap,and Td Vaccines (1 - Tdap) 1977 CT Colonography 08/25/2003 Colonoscopy 08/25/2003 FIT-DNA 08/25/2003 FIT 08/25/2003 FOBT 08/25/2003 Sigmoidoscopy 08/25/2003 [facility]-Colorectal Cancer Screening 08/25/2003 [facility]-Zoster Vaccines (1 of 2) 2008 [facility]-RSV Vaccine: 60+ Years or (1 - Risk 60-74 years 1-dose series) 2018 [id number] Vaccine (3 - 2024- season) 2024 07/02/2020, 06/05/2020 [facility]-Influenza Vaccine (#1) 12/08/202401/12, 08/25/2019, 01/07/2019, Additional history exists [facility]-Pneumococcal Vaccine: 50+ Years (3 of 3 - PCV20 or PCV21) 05/05/2025 05/05/2020, 03/01/2018, 09/27/2014, Additional history exists [facility]-Depression Screening 12/24/2025 12/24/2024, 12/08 [facility]-Obesity Intervention Completed 12/24/2024 HPV Vaccines Aged Out No longer eligi [...] age to complete this topic Insurance MEDICARE [place] [address] [id number] Care Teams Usability Specialist Relationship Specialty Start Date End Date Cristela Marmolejo APRN [address] [place] [address] PCP - General 10/01/24
--- OUTSIDE RECORDS SUMMARY | 2025-02-20 06:55 | XMS_ITS | Data Portability ---
Author Organization [facility] Address [address] [place] [address] Care Team Providers Care Account Support Associate Name Role Phone MARGARETTE ARROYO Referring Provider Assessment No assessment recorded. Plan of Treatment Reminders Order Date Submit Date Provider Last Modified By Organization Details Last Modified Time Details Appointments None recorded. Lab renal function panel, serum 2024 025 [facility], [address], [place] [address], [place], [address], 10:07:57 CBC w/ auto diff 2024 025 [facility], [address], [place] [address], [place], [address], 10:07:56 protein + creatinine panel, urine 2024 025 [facility], [address], [place] [address], [place], [address], 5 10:07:57 urinalysis complete, reflex culture 2024 025 [facility], [address], [place] [address], [place], [address], 5 10:07:56 PTH (parathyroi d hormone), intact, serum or plasma 2024 025 [facility], [address], [address] [address], [place], [address], 10:07:58 vitamin D, 25-hydroxy, total, serum 2024 025 [facility], [address], [place] [address], [place], [address], 10:07:58 TSH + free T4, serum 2024 025 [facility], [address], [place] [address], [place], [address], 10:07:55 HbA1c (hemoglobin A1c), blood 2024 025 [facility], [address], [place] [address], [place], [address], 13:09:45 CMP, serum or plasma 2024 025 [facility], [address], [place], [place], [address], 13:09:44 CBC w/ auto diff 2024 025 [facility], [address], [place] [address], [place], [address], 13:09:43 microalbumi n/creatinin e, mass ratio, urine 2024 025 [facility], [address], [place] [address], [place], [address], 13:09:45 lipid panel, serum 2024 025 [facility], [address], [place] [address], [place], [address], 13:09:44 Referral orthopedic surgeon referral - left middle finger 2024 025 [facility], [address], [place], [address], 11:57:18 Procedures venipunctur e routine (PROC) 2024 025 [email or web address] Not available 11:17:04 Surgeries None recorded. Imaging None recorded. Medication Orders Accu-Chek Guide test strips 2024 025 [facility] [id number], [address] [place] [address] , [place], [address], 11:59:30 Patient TargetsNo targets recorded. Patient Instructions Encounter Date Encounter Id Patient Instructions Last Modified By Organization Details Last Modified Time 12/02/2024 [id number] learning about healthy weight efryman Not available 12/02/2024 08:52:22 body mass index: care instructions efryman Not available 12/02/2024 08:52:21 Reason for Referral Orthopedic Surgeon Referral for Acquired trigger finger left middle finger Referring Physician: Cristela Marmolejo, Family Medicine, Encounter Date: 08/08/2024 Results Created Date Observation Date Name Description Value Unit Range Abnormal Flag Note LastModifiedBy Organization Detail LastModifiedTime 08/13/1908/13/2024 CBC WITH DIFFE RENTI AL/PL ATELE T WBC 6.3 x10e3 /uL 3.4-10 .8 normal Not Available [facility] ([facility]) [address] [place], [address], 08/13/2024 13:09:43 08/13/1908/13/2024 CBC WITH DIFFE RENTI AL/PL ATELE T RBC 4.61 x10e6 /uL 4.14-5 .80 normal Not Available [facility] ([facility]) [address] [place], [address], 08/13/2024 13:09:43 08/13/19 25 08/13/2024 CBC WITH DIFFE RENTI AL/PL ATELE T hemoglobin 14.2 g/dL 13.0-1 7.7 normal Not Available [facility] ([facility]) [address] [facility], [place], [address], 08/13/2024 13:09:43 08/13/19 25 08/13/2024 CBC WITH DIFFE RENTI AL/PL ATELE T hematocrit 43.3 % 37.5-5 1.0 normal Not Available [facility] ([facility]) [address] [place], [address], 08/13/2024 13:09:43 08/13/19 25 08/13/2024 CBC WITH DIFFE RENTI AL/PL ATELE T MCV 94 fL 79-97 normal Not Available [facility] ([facility]) [address] [place], [address], 08/13/2024 13:09:43 08/13/19 25 08/13/2024 CBC WITH DIFFE RENTI AL/PL ATELE T MCH 30.8 pg 26.6-3 3.0 normal Not Available [facility] ([facility]) [address] [place], [address], 08/13/2024 13:09:43 08/13/19 25 08/13/2024 CBC WITH DIFFE RENTI AL/PL ATELE T MCHC 32.8 g/dL 31.5-3 5.7 normal Not Available [facility] ([facility]) [address] [place], [address], 08/13/2024 13:09:43 08/13/19 25 08/13/2024 CBC WITH DIFFE RENTI AL/PL ATELE T RDW 14.5 % 11.6-1 5.4 Not Available [facility] ([facility]) [address] [place], [address], 08/13/2024 13:09:43 08/13/19 25 08/13/2024 CBC WITH DIFFE RENTI AL/PL ATELE T platelets 253 x10e3 /uL 150-45 0 normal Not Available [facility] ([facility]) [address], [place], [address], 08/13/2024 13:09:43 08/13/19 25 08/13/2024 CBC WITH DIFFE RENTI AL/PL ATELE T neutrophils 66 % not estab. normal Not Available [facility] ([facility]) [address] [facility], [place], [address], 08/13/2024 13:09:43 08/13/19 25 08/13/2024 CBC WITH DIFFE RENTI AL/PL ATELE T lymphs 22 % not estab. normal Not Available [facility] ([facility]) [address] [facility], [place], [address], 08/13/2024 13:09:43 08/13/19 25 08/13/2024 CBC WITH DIFFE RENTI AL/PL ATELE T monocytes 9 % not estab. normal Not Available [facility] ([facility]) [address] [facility], [place], [address], 08/13/2024 13:09:43 08/13/19 25 08/13/2024 CBC WITH DIFFE RENTI AL/PL ATELE T eos 2 % not estab. normal Not Available [facility] ([facility]) [address] [facility], [place], [address], 08/13/2024 13:09:43 08/13/19 25 08/13/2024 CBC WITH DIFFE RENTI AL/PL ATELE T basos 1 % not estab. normal Not Available [facility] ([facility]) [address] [facility], [place], [address], 08/13/2024 13:09:43 08/13/19 25 08/13/2024 CBC WITH DIFFE RENTI AL/PL ATELE T immature cells AIRPORT MANAGER Not Available [facility] ([facility]) [address] [facility], [place], [address], 08/13/2024 13:09:43 08/13/19 25 08/13/2024 CBC WITH DIFFE RENTI AL/PL ATELE T neutrophils (absolute) 4.2 x10e3 /uL 1.4-7. 0 normal Not Available [facility] ([facility]) [address] [place], [address], 08/13/2024 13:09:43 08/13/19 25 08/13/2024 CBC WITH DIFFE RENTI AL/PL ATELE T lymphs (absolute) 1.4 x10e3 /uL 0.7-3. 1 normal Not Available [facility] ([facility]) [address] [place], [address], 08/13/2024 13:09:43 08/13/19 25 08/13/2024 CBC WITH DIFFE RENTI AL/PL ATELE T monocytes(ab solute) 0.5 x10e3 /uL 0.1-0. 9 normal Not Available [facility] ([facility]) [address] [facility], [place], [address], 08/13/2024 13:09:43 08/13/19 25 08/13/2024 CBC WITH DIFFE RENTI AL/PL ATELE T eos (absolute) 0.1 x10e3 /uL 0.0-0. 4 normal Not Available [facility] ([facility]) [address] [place], [address], 08/13/2024 13:09:43 08/13/19 25 08/13/2024 CBC WITH DIFFE RENTI AL/PL ATELE T baso (absolute) 0.0 x10e3 /uL 0.0-0. 2 normal Not Available [facility] ([facility]) [address] [place], [address], 08/13/2024 13:09:43 08/13/19 25 08/13/2024 CBC WITH DIFFE RENTI AL/PL ATELE T immature granulocytes 0 % not estab. Not Available [facility] ([facility]) [address] [place], [address], 08/13/2024 13:09:43 08/13/19 25 08/13/2024 CBC WITH DIFFE RENTI AL/PL ATELE T immature grans (abs) 0.0 x10e3 /uL 0.0-0. 1 Not Available [facility] ([facility]) [address] [facility], [place], [address], 08/13/2024 13:09:43 08/13/19 25 08/13/2024 CBC WITH DIFFE RENTI AL/PL ATELE T NRBC AIRPORT MANAGER Not Available [facility] ([facility]) [address] [facility], [place], [address], 08/13/2024 13:09:43 08/13/19 25 08/13/2024 CBC WITH DIFFE RENTI AL/PL ATELE T hematology comments: AIRPORT MANAGER Not Available [facility] ([facility]) [address] [facility], [place], [address], 08/13/2024 13:09:43 08/13/19 25 08/13/2024 COMP. METAB OLIC PANEL (14) glucose 114 mg/dL 70-99 above high normal Not Available [facility] ([facility]) [address] [facility], [place], [address], 08/13/2024 13:09:44 08/13/19 25 08/13/2024 COMP. METAB OLIC PANEL (14) BUN 18 mg/dL 8-27 normal Not Available [facility] ([facility]) [address] [facility], [place], [address], 08/13/2024 13:09:44 08/13/19 25 08/13/2024 COMP. METAB OLIC PANEL (14) creatinine 1.83 mg/dL 0.76-1 .27 above high normal Not Available [facility] ([facility]) [address] [facility], [place], [address], 08/13/2024 13:09:44 08/13/19 25 08/13/2024 COMP. METAB OLIC PANEL (14) eGFR 40 mL/mi n/1.7 3 >59 below low normal Not Available [facility] ([facility]) [address] [place], [address], 08/13/2024 13:09:44 08/13/19 25 08/13/2024 COMP. METAB OLIC PANEL (14) BUN/creatini ne ratio 10 10-24 normal Not Available [facility] ([facility]) [address] [place], [address], 08/13/2024 13:09:44 08/13/19 25 08/13/2024 COMP. METAB OLIC PANEL (14) sodium 140 mmol/ L 134-14 4 normal Not Available [facility] ([facility]) [address] [facility], [place], [address], 08/13/2024 13:09:44 08/13/19 25 08/13/2024 COMP. METAB OLIC PANEL (14) potassium 4.6 mmol/ L 3.5-5. 2 normal Not Available [facility] ([facility]) [address] [place], [address], 08/13/2024 13:09:44 08/13/19 25 08/13/2024 COMP. METAB OLIC PANEL (14) chloride 106 mmol/ L 96-106 normal Not Available [facility] ([facility]) [address] [place], [address], 08/13/2024 13:09:44 08/13/19 25 08/13/2024 COMP. METAB OLIC PANEL (14) carbon dioxide, total 20 mmol/ L 20-29 normal Not Available [facility] ([facility]) [address] [place], [address], 08/13/2024 13:09:44 08/13/19 25 08/13/2024 COMP. METAB OLIC PANEL (14) calcium 9.5 mg/dL 8.6-10 .2 normal Not Available [facility] ([facility]) [address] [place], [address], 08/13/2024 13:09:44 08/13/19 25 08/13/2024 COMP. METAB OLIC PANEL (14) protein, total 6.4 g/dL 6.0-8. 5 normal Not Available [facility] ([facility]) [address] [facility] [place], [address], 08/13/2024 13:09:44 08/13/19 25 08/13/2024 COMP. METAB OLIC PANEL (14) albumin 4.1 g/dL 3.9-4. 9 normal Not Available [facility] ([facility]) [address] [place], [address], 08/13/2024 13:09:44 08/13/19 25 08/13/2024 COMP. METAB OLIC PANEL (14) globulin, total 2.3 g/dL 1.5-4. 5 Not Available [facility] ([facility]) [address] [place], [address], 08/13/2024 13:09:44 08/13/19 25 08/13/2024 COMP. METAB OLIC PANEL (14) bilirubin, total 0.4 mg/dL 0.0-1. 2 normal Not Available [facility] ([facility]) [address] [facility] [place], [address], 08/13/2024 13:09:44 08/13/19 25 08/13/2024 COMP. METAB OLIC PANEL (14) alkaline phosphatase 120 IU/L 44-121 normal Not Available [facility] ([facility]) [address] [place], [address], 08/13/2024 13:09:44 08/13/19 25 08/13/2024 COMP. METAB OLIC PANEL (14) AST (SGOT) 18 IU/L 0-40 normal Not Available [facility] ([facility]) [address] [place], [address], 08/13/2024 13:09:44 08/13/19 25 08/13/2024 COMP. METAB OLIC PANEL (14) ALT (SGPT) 14 IU/L 0-44 normal Not Available [facility] ([facility]) [address] [place], [address], 08/13/2024 13:09:44 08/13/19 25 08/13/2024 LIPID PANEL cholesterol, total 115 mg/dL 100-19 9 normal Not Available [facility] ([facility]) [address] [place], [address], 08/13/2024 13:09:44 08/13/19 25 08/13/2024 LIPID PANEL triglyceride s 152 mg/dL 0-149 above high normal Not Available [facility] ([facility]) [address] [place], [address], 08/13/2024 13:09:44 08/13/19 25 08/13/2024 LIPID PANEL HDL cholesterol 39 mg/dL >39 below low normal Not Available [facility] ([facility]) [address] [place], [address], 08/13/2024 13:09:44 08/13/19 25 08/13/2024 LIPID PANEL VLDL cholesterol logan 26 mg/dL 5-40 Not Available [facility] ([facility]) [address] [place], [address], 08/13/2024 13:09:44 08/13/19 25 08/13/2024 LIPID PANEL LDL chol calc ([facility]) 50 mg/dL 0-99 Not Available [facility] ([facility]) [address] [place], [address], 08/13/2024 13:09:44 08/13/19 25 08/13/2024 LIPID PANEL LDL calc comment: AIRPORT MANAGER Not Available [facility] ([facility]) [address] [place], [address], 08/13/2024 13:09:44 08/13/19 25 08/13/2024 ALBUM IN/CR EAT RATIO , RANDO M UR creatinine, urine 151.7 mg/dL not estab. normal Not Available [facility] ([facility]) [address] [place], [address], 08/13/2024 13:09:45 08/13/19 25 08/13/2024 ALBUM IN/CR EAT RATIO , RANDO M UR albumin, urine <3.0 ug/mL not estab. Not Available [facility] ([facility]) [address] [place], [address], 08/13/2024 13:09:45 08/13/19 25 08/13/2024 ALBUM IN/CR EAT RATIO , RANDO M UR alb/creat ratio <2 mg/g_ creat 0-29 Payton l: 0 - 29 Moder ately incre ased: 30 - 300 Sever tyrell incre ased: >300 Not Available [facility] ([facility]) [address] [place], [address], 08/13/2024 13:09:45 08/13/19 25 08/13/2024 HEMOG LOBIN A1C hemoglobin A1C 7.5 % 4.8-5. 6 above high normal Predi abete s: 5.7 - 6.4 Diabe kayli: >6.4 Glyce aric contr ol for adult s with diabe kayli: <7.0 Not Available [facility] ([facility]) [address] [place], [address], 08/13/2024 13:09:45 12/03/19 25 12/03/2024 TSH+F REE T4 TSH 2.810 uIU/m L 0.450- 4.500 normal Not Available [facility] ([facility]) [address] [facility] [place], [address], 12/04/2024 10:07:55 12/03/1912/03/2024 TSH+F REE T4 T4,free(dire ct) 1.29 NG/dL 0.82-1 .77 normal Not Available [facility] ([facility]) [address] [place], [address], 12/04/2024 10:07:55 12/03/19 25 12/03/2024 CBC WITH DIFFE RENTI AL/PL ATELE T WBC 6.1 x10e3 /uL 3.4-10 .8 normal Not Available [facility] ([facility]) [address] [place], [address], 12/04/2024 10:07:56 12/03/19 25 12/03/2024 CBC WITH DIFFE RENTI AL/PL ATELE T RBC 4.87 x10e6 /uL 4.14-5 .80 normal Not Available [facility] ([facility]) [address] [place], [address], 12/04/2024 10:07:56 12/03/19 25 12/03/2024 CBC WITH DIFFE RENTI AL/PL ATELE T hemoglobin 15.6 g/dL 13.0-1 7.7 normal Not Available [facility] ([facility]) [address] [place], [address], 12/04/2024 10:07:56 12/03/1912/03/2024 CBC WITH DIFFE RENTI AL/PL ATELE T hematocrit 46.6 % 37.5-5 1.0 normal Not Available [facility] ([facility]) [address] [place], [address], 12/04/2024 10:07:56 12/03/19 25 12/03/2024 CBC WITH DIFFE RENTI AL/PL ATELE T MCV 96 fL 79-97 normal Not Available [facility] ([facility]) [address] [facility], [place], [address], 12/04/2024 10:07:56 12/03/19 25 12/03/2024 CBC WITH DIFFE RENTI AL/PL ATELE T MCH 32.0 pg 26.6-3 3.0 normal Not Available [facility] ([facility]) [address] [facility], [place], [address], 12/04/2024 10:07:56 12/03/19 25 12/03/2024 CBC WITH DIFFE RENTI AL/PL ATELE T MCHC 33.5 g/dL 31.5-3 5.7 normal Not Available [facility] ([facility]) [address] [facility], [place], [address], 12/04/2024 10:07:56 12/03/19 25 12/03/2024 CBC WITH DIFFE RENTI AL/PL ATELE T RDW 13.6 % 11.6-1 5.4 Not Available [facility] ([facility]) [address] [facility], [place], [address], 12/04/2024 10:07:56 12/03/19 25 12/03/2024 CBC WITH DIFFE RENTI AL/PL ATELE T platelets 254 x10e3 /uL 150-45 0 normal Not Available [facility] ([facility]) [address] [place], [address], 12/04/2024 10:07:56 12/03/19 25 12/03/2024 CBC WITH DIFFE RENTI AL/PL ATELE T neutrophils 65 % not estab. normal Not Available [facility] ([facility]) [address] [place], [address], 12/04/2024 10:07:56 12/03/19 25 12/03/2024 CBC WITH DIFFE RENTI AL/PL ATELE T lymphs 23 % not estab. normal Not Available [facility] ([facility]) [address] [place], [address], 12/04/2024 10:07:56 12/03/19 25 12/03/2024 CBC WITH DIFFE RENTI AL/PL ATELE T monocytes 8 % not estab. normal Not Available [facility] ([facility]) [address] [place], [address], 12/04/2024 10:07:56 12/03/19 25 12/03/2024 CBC WITH DIFFE RENTI AL/PL ATELE T eos 3 % not estab. normal Not Available [facility] ([facility]) [address] [place], [address], 12/04/2024 10:07:56 12/03/19 25 12/03/2024 CBC WITH DIFFE RENTI AL/PL ATELE T basos 1 % not estab. normal Not Available [facility] ([facility]) [address] [place], [address], 12/04/2024 10:07:56 12/03/19 25 12/03/2024 CBC WITH DIFFE RENTI AL/PL ATELE T immature cells AIRPORT MANAGER Not Available [facility] ([facility]) [address] [place], [address], 12/04/2024 10:07:56 12/03/19 25 12/03/2024 CBC WITH DIFFE RENTI AL/PL ATELE T neutrophils (absolute) 4.1 x10e3 /uL 1.4-7. 0 normal Not Available [facility] ([facility]) [address] [place], [address], 12/04/2024 10:07:56 12/03/19 25 12/03/2024 CBC WITH DIFFE RENTI AL/PL ATELE T lymphs (absolute) 1.4 x10e3 /uL 0.7-3. 1 normal Not Available [facility] ([facility]) [address] [place], [address], 12/04/2024 10:07:56 12/03/19 25 12/03/2024 CBC WITH DIFFE RENTI AL/PL ATELE T monocytes(ab solute) 0.5 x10e3 /uL 0.1-0. 9 normal Not Available [facility] ([facility]) [address] [facility], [place], [address], 12/04/2024 10:07:56 12/03/19 25 12/03/2024 CBC WITH DIFFE RENTI AL/PL ATELE T eos (absolute) 0.2 x10e3 /uL 0.0-0. 4 normal Not Available [facility] ([facility]) [address] [facility], [place], [address], 12/04/2024 10:07:56 12/03/19 25 12/03/2024 CBC WITH DIFFE RENTI AL/PL ATELE T baso (absolute) 0.0 x10e3 /uL 0.0-0. 2 normal Not Available [facility] ([facility]) [address] [facility], [place], [address], 12/04/2024 10:07:56 12/03/19 25 12/03/2024 CBC WITH DIFFE RENTI AL/PL ATELE T immature granulocytes 0 % not estab. Not Available [facility] ([facility]) [address] [place], [address], 12/04/2024 10:07:56 12/03/19 25 12/03/2024 CBC WITH DIFFE RENTI AL/PL ATELE T immature grans (abs) 0.0 x10e3 /uL 0.0-0. 1 Not Available [facility] ([facility]) [address] [place], [address], 12/04/2024 10:07:56 12/03/19 25 12/03/2024 CBC WITH DIFFE RENTI AL/PL ATELE T NRBC AIRPORT MANAGER Not Available [facility] ([facility]) [address] [place], [address], 12/04/2024 10:07:56 12/03/19 25 12/03/2024 CBC WITH DIFFE DIOR AL/KAYLENE JOHNSON T hematology comments: AIRPORT MANAGER Not Available [facility] ([facility]) [address] [facility], [place], [address], 12/04/2024 10:07:56 12/03/19 25 12/03/2024 UA/M W/RFL X CULTU RE, ROUTI NE specific gravity >=1.03 0 1.005- 1.030 abnormal Not Available [facility] ([facility]) [address] [facility], [place], [address], 12/04/2024 10:07:56 12/03/19 25 12/03/2024 UA/M W/RFL X CULTU RE, ROUTI NE pH 5.5 5.0-7. 5 normal Not Available [facility] ([facility]) [address] [facility], [place], [address], 12/04/2024 10:07:56 12/03/19 25 12/03/2024 UA/M W/RFL X CULTU RE, ROUTI NE urine-color Yellow yellow Not Available [facility] ([facility]) [address] [facility], [place], [address], 12/04/2024 10:07:56 12/03/19 25 12/03/2024 UA/M W/RFL X CULTU RE, ROUTI NE appearance Cloudy clear abnormal Not Available [facility] ([facility]) [address] [facility], [place], [address], 12/04/2024 10:07:56 12/03/19 25 12/03/2024 UA/M W/RFL X CULTU RE, ROUTI NE WBC esterase Negati ve negati ve Not Available [facility] ([facility]) [address] [facility], [place], [address], 12/04/2024 10:07:56 12/03/19 25 12/03/2024 UA/M W/RFL X CULTU RE ROUTI NE protein Trace negati ve/tra ce Not Available [facility] ([facility]) [address] [place], [address], 12/04/2024 10:07:56 12/03/19 25 12/03/2024 UA/M W/RFL X CULTU RETRENTI NE glucose 3+ negati ve abnormal Not Available [facility] ([facility]) [address] [place], [address], 12/04/2024 10:07:56 12/03/19 25 12/03/2024 UA/M W/RFL X CULTU RECM NE ketones Negati ve negati ve Not Available [facility] ([facility]) [address] [place], [address], 12/04/2024 10:07:56 12/03/19 25 12/03/2024 UA/M W/RFL X CULTU RETRENTI NE occult blood Negati ve negati ve Not Available [facility] ([facility]) [address] [place], [address], 12/04/2024 10:07:56 12/03/19 25 12/03/2024 UA/M W/RFL X CULTU RE ROUTI NE bilirubin Negati ve negati ve Not Available [facility] ([facility]) [address] [place], [address], 12/04/2024 10:07:56 12/03/19 25 12/03/2024 UA/M W/RFL X CULTU RETRENTI NE urobilinogen ,semi-qn 0.2 mg/dL 0.2-1. 0 normal Not Available [facility] ([facility]) [address] [place], [address], 12/04/2024 10:07:56 08/26/20 25 12/03/2024 UA/M W/RFL X CULTU RE, ROUTI NE nitrite, urine Negati ve negati ve Not Available [facility] ([facility]) [address] [facility], [place], [address], 12/04/2024 10:07:56 12/03/19 25 12/03/2024 UA/M W/RFL X CULTU RE, ROUTI NE microscopic examination Commen t Micro scopi c follo ws if indic ated. Not Available [facility] ([facility]) [address] [facility], [place], [address], 12/04/2024 10:07:56 12/03/19 25 12/03/2024 UA/M W/RFL X CULTU RE, ROUTI NE microscopic examination See below: Micro scopi c was indic ated and was perfo rmed. Not Available [facility] ([facility]) [address] [facility], [place], [address], 12/04/2024 10:07:56 12/03/19 25 12/03/2024 UA/M W/RFL X CULTU RE, ROUTI NE WBC None seen /hpf 0 - 5 Not Available [facility] ([facility]) [address] [facility], [place], [address], 12/04/2024 10:07:56 12/03/19 25 12/03/2024 UA/M W/RFL X CULTU RE, ROUTI NE RBC None seen /hpf 0 - 2 Not Available [facility] ([facility]) [address] [facility], [place], [address], 12/04/2024 10:07:56 12/03/19 25 12/03/2024 UA/M W/RFL X CULTU RE, ROUTI NE epithelial cells (non renal) None seen /hpf 0 - 10 Not Available [facility] ([facility]) [address], [place], [address], 12/04/2024 10:07:56 12/03/19 25 12/03/2024 UA/M W/RFL X CULTU RE, ROUTI NE epithelial cells (renal) [employer] Not Available [facility] ([facility]) [address], [place], [address], 12/04/2024 10:07:56 12/03/19 25 12/03/2024 UA/M W/RFL X CULTU RE, ROUTI NE casts None seen /lpf none seen Not Available [facility] ([facility]) [address], [place], [address], 12/04/2024 10:07:56 12/03/19 25 12/03/2024 UA/M W/RFL X CULTU RE, ROUTI NE cast type AIRPORT MANAGER Not Available [facility] ([facility]) [address], [place], [address], 12/04/2024 10:07:56 12/03/19 25 12/03/2024 UA/M W/RFL X CULTU RE, ROUTI NE crystals AIRPORT MANAGER Not Available [facility] ([facility]) [address] [place], [address], 12/04/2024 10:07:56 12/03/19 25 12/03/2024 UA/M W/RFL X CULTU RE, ROUTI NE crystal type AIRPORT MANAGER Not Available [facility] ([facility]) [address], [place], [address], 12/04/2024 10:07:56 12/03/19 25 12/03/2024 UA/M W/RFL X CULTU RE, ROUTI NE mucus threads AIRPORT MANAGER Not Available [facility] ([facility]) [address] [place], [address], 12/04/2024 10:07:56 12/03/19 25 12/03/2024 UA/M W/RFL X CULTU RE, ROUTI NE bacteria None seen none seen/f ew Not Available [facility] ([facility]) [address], [place], [address], 12/04/2024 10:07:56 12/03/19 25 12/03/2024 UA/M W/RFL X CULTU RE, ROUTI NE yeast AIRPORT MANAGER Not Available [facility] ([facility]) [address], [place], [address], 12/04/2024 10:07:56 12/03/19 25 12/03/2024 UA/M W/RFL X CULTU RE, ROUTI NE 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 Not Available [facility] ([facility]) [address] [place], [address], 12/04/2024 10:07:56 12/03/19 25 12/03/2024 RENAL PANEL (10) glucose 128 mg/dL 70-99 above high normal Not Available [facility] ([facility]) [address] [place], [address], 12/04/2024 10:07:57 12/03/19 25 12/03/2024 RENAL PANEL (10) BUN 19 mg/dL 8-27 normal Not Available [facility] ([facility]) [address] [place], [address], 12/04/2024 10:07:57 12/03/19 25 12/03/2024 RENAL PANEL (10) creatinine 1.80 mg/dL 0.76-1 .27 above high normal Not Available [facility] ([facility]) [address] [place], [address], 12/04/2024 10:07:57 12/03/19 25 12/03/2024 RENAL PANEL (10) eGFR 41 mL/mi n/1.7 3 >59 below low normal Not Available [facility] ([facility]) [address] [place], [address], 12/04/2024 10:07:57 12/03/19 25 12/03/2024 RENAL PANEL (10) BUN/creatini ne ratio 11 10-24 normal Not Available [facility] ([facility]) [address] [place], [address], 12/04/2024 10:07:57 12/03/19 25 12/03/2024 RENAL PANEL (10) sodium 138 mmol/ L 134-14 4 normal Not Available [facility] ([facility]) [address] [place], [address], 12/04/2024 10:07:57 12/03/19 25 12/03/2024 RENAL PANEL (10) potassium 4.2 mmol/ L 3.5-5. 2 normal Not Available [facility] ([facility]) [address] [place], [address], 12/04/2024 10:07:57 12/03/19 25 12/03/2024 RENAL PANEL (10) chloride 102 mmol/ L 96-106 normal Not Available [facility] ([facility]) [address] [place], [address], 12/04/2024 10:07:57 12/03/19 25 12/03/2024 RENAL PANEL (10) carbon dioxide, total 19 mmol/ L 20-29 below low normal Not Available [facility] ([facility]) [address] [place], [address], 12/04/2024 10:07:57 12/03/19 25 12/03/2024 RENAL PANEL (10) calcium 9.4 mg/dL 8.6-10 .2 normal Not Available [facility] ([facility]) [address] [place], [address], 12/04/2024 10:07:57 12/03/19 25 12/03/2024 RENAL PANEL (10) phosphorus 3.8 mg/dL 2.8-4. 1 normal Not Available [facility] ([facility]) [address] [place], [address], 12/04/2024 10:07:57 12/03/19 25 12/03/2024 RENAL PANEL (10) albumin 4.3 g/dL 3.9-4. 9 normal Not Available [facility] ([facility]) [address] [facility] [place], [address], 12/04/2024 10:07:57 12/03/19 25 12/03/2024 PROT+ CREAT U (RAND OM) creatinine, urine 142.3 mg/dL not estab. normal Not Available [facility] ([facility]) [address] [place], [address], 12/04/2024 10:07:57 12/03/19 25 12/03/2024 PROT+ CREAT U (RAND OM) protein,tota l,urine 11.6 mg/dL not estab. normal Not Available [facility] ([facility]) [address] [place], [address], 12/04/2024 10:07:57 12/03/19 25 12/03/2024 PROT+ CREAT U (RAND OM) protein/crea t ratio 82 mg/g_ creat 0-200 Not Available [facility] ([facility]) [address], [place], [address], 12/04/2024 10:07:57 12/03/19 25 12/03/2024 VITAM IN D, 25-HY DROXY vitamin D, 25-hydroxy 37.9 NG/mL 30.0-1 00.0 Vitam in D defic iency has been defin ed by the Insti tute of Medic ine and an Endoc rine Socie ty pract ice guide line as a level of serum 25-OH vitam in D less than 20 ng/mL (1,2) . The Endoc rine Socie ty went on to fur er defin e vitam in D insuf ficie ncy as a level betwe en 21 and 29 ng/mL (2). 1. IOM (Inst itute of Medic ine). 2010. Dieta ry refer ence intak es for calci um and D. Dionicio hernandez [place]: The [facility] . 2. Marshall sunshine [place], Elena knight [place], Ash off-F errar i WIGGINS, et al. Evalu ation , treat ment, and preve ntion of vitam in D defic iency : an Endoc rine Socie ty clini logan pract ice guide line. JCEM. 2010; 96(7) :1911 -30. Not Available [facility] ([facility]) [address], [place], [address], 12/04/2024 10:07:58 12/03/19 25 12/04/2024 PTH, INTAC T PTH, intact 58 pg/mL 15-65 normal Not Available [facility] ([facility]) [address], [place], [address], 12/04/2024 10:07:58 08/20/19 25 08/18/2024 XR, hand, 3 or more view No observ ation record ed. [email or web address] [facility] [address], [place], [address], 08/19/2024 15:48:51 09/10/19 09/05/2024 elect aide núñez am No observ ation record ed. [email or web address] [facility] [address], [place], [address], 09/09/2024 10:42:22 Result Notes None recorded. Problems Name Problem SNOMED Code Status Onset Date Resolution Date Notes Provider Name and Address Organization Details Recorded Time Type 2 diabetes mellitus 59269507 [facility] 11:29:28 Kidney stone 66981782 Active [facility] 11:29:39 Hyperlipidemi a 38872436 Active [facility] 11:29:55 Essential hypertension 29664827 Active [facility] 11:30:12 History of placement of stent for coronary artery disease 881025807 Active [facility] 11:30:58 Problem Notes None recorded. Procedures Surgical History Date Name Laterality Status Provider Name and Address Organization Details Recorded Time Arthroscopic Surgery completed Risa Del Valle [facility] 08/08/2024 11:19:59 dental surgery completed Ivy Montanoler [facility] 08/08/2024 11:19:59 Stress test completed Ivy Del Valle [facility] 08/08/2024 11:19:59 Cardiac Cath completed Ivy Eligio [facility] 08/08/2024 11:19:59 Eye Surgery completed Ivy Eligio [facility] 08/08/2024 11:19:59 Knee Surgery completed Ivy Montanoler [facility] 08/08/2024 11:19:59 Gastrointestinal Surgery completed Ivy Montanoler [facility] 08/08/2024 11:19:59 Cardiac Surgery completed Ivy Montanoler [facility] 08/08/2024 11:20:00 Imaging Results None recorded. Procedure [...] active Not Available Not Available Not Available Lantus Solostar U-100 Insulin 100 unit/mL (3 mL) subcutaneous [...] height Body mass index (BMI) Body weight Heart rate Oxygen saturation Oxygen saturation in Arterial blood by Pulse oximetry Respiratory rate Pain severity - 0-10 verbal numeric rating [Score] - Reported Systolic And Diastolic Provider Name and Address Organization Details Last Updated DateTime 180.34 cm 34 kg/m2 878407. 54 g 61 /min 97 % 97 % 18 /min 0 126/82 mm[Hg] Ivy Del Valle [place] - [facility] 11:19:27 Date Recorded Body height Provider Name an d Address Organization Details Last Updated DateTime 08/12/2024 180.34 cm Ivy Del Valle [place] - [facility] 0 08/12/2024 07:49:23 Date Recorded Body height Body mass index (BMI) Body weight Respiratory rate Body temperature Heart rate Oxygen saturation Oxygen saturation in Arterial blood by Pulse oximetry Pain severity - 0-10 verbal numeric rating [Score] - Reported Systolic And Diastolic Provider Name and Address Organization Details Last Updated DateTime 180.34 cm 34.4 kg/m2 893902. 32 g 20 /min 98.1 [degF] 50 /min 99 % 99 % 0 124/78 mm[Hg] Ivy Del Valle [place] - [facility] 08:37:46 Social History Question Answer Notes LastModified [...] Or The Highest Degree You Have Received? 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 Never used electronic cigarettes Information not available 08/08/2024 What is your exercise level? Occasional Information not available 08/08/2024 Mental Status Question Answer Note LastModified by Organization D etails LastModified Time Do you feel stressed (tense, restless, nervous, or anxious, or unable to sleep at night)? [id number] Information not available 08/08/2024 Family History Relationship Description Onset Age of this Age Resolved Age Notes LastModified by Organization Details LastModified Time Mother Depressive disorder [email or web address] Not available 2024 11:19:59 Father Depressive disorder [email or web address] Not available 2024 11:19:59 Medical History Condition Response Diabetes Y Muscle, Joint, or Bone Problems Y Heart Problems Y Obesity Y Gout Y Degenerative Disc Disease Y Arthritis Y Kidney Stones Y Insomnia Y Kidney or Bladder Problems Y Asthma Y Fracture Y Neuropathy Y Heart Disease Y Hypertension Y Past Encounters Encounter ID Performer Location Encounter Start Date Encounter Closed Date Diagnosis/Indication Diagnosis SNOMED-CT Code Diagnosis ICD10 Code Diagnosis IMO Codes Diagnosis Note [id number] [place] [id number] 1 08/08/2024 10:16:56 08/08/2024 12:03:56 Type 2 diabetes mellitus 88106605 E11.9 Z79.4 40285109 labs Hyperlipidemia 77996047 E78.49 7879202 History of placement of stent for coronary artery disease 749636696 Z95.5 0247181 Essential hypertension 83396929 I10 65541 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 3702379 M65.30 27606 [id number] [place] [id number] 1 08/12/2024 07:45:43 08/12/2024 08:12:01 Type 2 diabetes mellitus 51294802 E11.9 Z79.4 [id number] [id number] [facility] [place] [id number] 1 12/02/2024 07:48:10 12/02/2024 09:22:23 Chronic kidney disease stage 3 269400688 N18.30 9577614821 Obese class I 3052712862 24394 E66.811 Z68.34 9628557 Body mass index 30+ - obesity 165988691 Z68.34 [id number] [facility] 00677469 R00 .1 94869 informed pt if he has any symptoms to go to [facility]- follow up with cardiology to see if holding med or decreasing dose. monitor close Health Concerns Section Related Observation LastModified by Organization Detai ls LastModified Time None Recorded Concern Status LastModified by Organization Details LastModified Time None Recorded Advance Directives Directive Y: Payers Insurance Date Sequence Insurance Name Policy Number Policy Marquez Covered Member ID Marquez Member ID Guarantor Name 07/31/2024 1 [employer] (MEDICARE SUPPLEMENT) Quincy Isiah [id number] Quincy Isiah 08/01/2024 3 [employer] (MEDICARE REPLACEMENT/ ADVANTAGE - PPO) Quincy Isiah [id number] Quincy Isiah 01/27/2025 2 A[employer] (MEDICARE SUPPLEMENT) Quincy Isiah [id number] Quincy Isiah 07/31/2024 1 [employer] (MEDICARE SUPPLEMENT) Quincy Isiah [id number] Quincy Isiah 07/31/2024 1 [employer] (MEDICARE REPLACEMENT/ ADVANTAGE - PPO) Quincy Isiah [id number] Quincy Isiah 12/01/2024 1 [place] Quincy P Isiah [id number] Quincy Isiah 12/01/2024 [employer] - [place] [id number] ([place]ICARE[place] Quincy P Isiah [id number] Quincy Isiah Notes Date Note Type Note Provider Name and Address Organization Details Recorded Time 08/08/2024 text/html ROS as noted in the HPI 63 yr old male presents to [facility] care and complains of left middle finger pain/stiffness for the last several months. Cristela Marmolejo APRN [address], [place], [address], [place] - [facility] 08/08/2024 12:01:09 08/12/2024 text/html 63 yr old male presents for blood work. Cristela Marmolejo APRN [address], [place], [address], [place] - [facility] 08/18/2024 08:44:02 12/02/2024 text/html ROS as noted in the HPI 64 yr old male presents for labs for nephrology. pt states he is feeling fine. hr low but pt states this is normal for him. Cristela Marmolejo APRN [address], [place], [address], [place] - [facility] 12/02/2024 09:07:22
== END 2025-02-20 23:59 | disposition home or self-care (01) ==
LOC: RAD 06:47
PROVIDERS: PCP Nurse Practitioner Family; Visit Provider Student in an Organized Health Care Education/Training Program
DX: N20.0 Calculus of kidney (principal)
CPT/HCPCS: 74176